=== PATIENT | male | born 1950 | race Hispanic/Latino ===

== ENCOUNTER 2018-06-13 13:50 | Day surgery (SDC) | payer MEDICARE ==
[2018-06-11 09:25] VITALS: BMI 22.9
[2018-06-13 14:27] LABS: BASO # 0.04 K/mm3 (0.0-2.0); BASO % 0.4 % (0.0-3.0); EOS # 0.1 (0.0-0.7); GRAN # 7.75 (1.4-6.5); GRAN % 68.6 % (50.0-68.0); HEMOGLOBIN 15.4 g/dL (14.0-18.0); LYMPH # 2.6 (1.2-3.4); LYMPH % 22.8 % (22.0-35.0); MEAN CELL VOLUME 75.2 fl (80.0-105.0); MEAN CORPUSCULAR HEMOGLOBIN 23.4 pg (25.0-35.0); MEAN CORPUSCULAR HGB CONC 31.2 g/dl (31.0-37.0); MEAN PLATELET VOLUME 10.7 fl (7.0-11.0); MONO # 0.8 (0.1-0.6); MONO % 7.2 % (1.0-6.0); RBC 6.57 10^6/uL (3.5-6.1); RED CELL DISTRIBUTION WIDTH 14.4 % (11.5-14.5); WHITE BLOOD COUNT 11.3 10^3/ul (4.5-11.0)
[2018-06-13 14:37] LABS: BLOOD UREA NITROGEN 29 mg/dL (7-21); GFR NON-AFRICAN AMERICAN > 60; INR 1.09; PARTIAL THROMBOPLASTIN TIME 24.6 Seconds (25.1-36.5); PROTHROMBIN TIME 12.4 SECONDS (9.4-12.5)
[2018-06-13] MEDS ORDERED: Midazolam 2 MG/2 ML VIAL ONE (15:21)
[2018-06-13] MEDS ORDERED: Oxycodone/Acetaminophen 5/325 mg Tab PO PRN (16:16)
[2018-06-13] MEDS ORDERED: Sodium Chloride 0.45% 1,000 ML IV SCH (16:30)
[2018-06-13] MEDS ORDERED: Midazolam 2 MG/2 ML VIAL IVP ONE (16:38)
[2018-06-13] MEDS ORDERED: Oxycodone/Acetaminophen 5/325 mg Tab PO ONE (17:05)
--- NOTE | 2018-06-13 17:29 | CT ---
PROCEDURE: CT guided right lung biopsy. HISTORY: Previous left pneumonectomy for lung C Large right hilar mass. Evaluate for carcinoma. PHYSICIAN(S): Cortez Ames MD. TECHNIQUE: The relative risks and indications of the procedure were explained to the patient and consent obtained. The patient was placed prone on the CT scanner and preliminary images through the mid chest obtained. Conscious sedation and monitoring were provided throughout the procedure by a nurse. There is an 8 cm right hilar mass. The patient is status post left pneumonectomy.. A right posterior approach was selected and the area prepped and draped in the usual sterile fashion. 1% Xylocaine was used to anesthetize the skin and soft tissues. A 19 gauge guiding needle was advanced into the 8 cm right hilar mass. Its position was confirmed with CT. Using coaxial technique, multiple core biopsies were obtained. The postprocedure images show no evidence of large pneumothorax or significant hemorrhage.. IMPRESSION: 1. CT-guided right lung biopsy as described above.
[2018-06-13 17:32] VITALS: TEMP 97.6
[2018-06-13 18:42] VITALS: BP 135/79; PULSE 76; RESP 20; O2SAT 95
--- NOTE | 2018-06-14 12:51 | RAD ---
Date of service: 06/13/2018 HISTORY: rt lung bx COMPARISON: CT scan earlier same day FINDINGS: LUNGS: Complete opacification of the left lung. PLEURA: No evidence of pneumothorax CARDIOVASCULAR: Normal. OSSEOUS STRUCTURES: No significant abnormalities. VISUALIZED UPPER ABDOMEN: Normal. OTHER FINDINGS: None. IMPRESSION: There is no evidence of post biopsy pneumothorax on the right
== END 2018-06-13 19:30 | disposition home or self-care (01) ==
LOC: SDS 13:50
PROVIDERS: ATTEND Radiology Vascular & Interventional Radiology
DX: C34.01 Malignant neoplasm of right main bronchus (principal); Z90.2 Acquired absence of lung [part of]
CPT/HCPCS: 32405; 36415; 71045; 77012; 80048; 85025; 85610; 85730; 88305; J2250; J2405; J3010; J7030

== ENCOUNTER 2018-06-18 06:53 | Inpatient (IN) | payer MEDICARE ==
[2018-06-18] MEDS ORDERED: Albuterol-Ipratrop 3 mg / 0.5 (3 ml) UD IH STA (07:13)
--- NOTE | 2018-06-18 07:19 | ED PDOC ---
Arrival/HPI - General Chief Complaint: Shortness Of Breath Time Seen by Provider: 06/18/18 07:10 Historian: Patient - Critical Care Critical Care Minutes: 30 minutes - History of Present Illness Narrative History of Present Illness (Text): 68 yr old male w/ hx of Lung ca on home o2 3L, L Lobectomy, HTN, HIV p/w SOB. Acute SOB per EMS and family this morning 30 minutes prior to arrival, desat to 59%. Denies any chest pain or abdominal pain or Headache. No recent fever chills or night sweat. No Nausea or vomiting. Pt was recently rx w/ levoquin 3 weeks prior for ?PNA, but was found to have re-occurence of CA, 9cm mass to R lung. Pt had chemo scheduled to be started. Per family pts Viral load has been low and last Cd4 count was very good. PMD: Nichole Pulm: David ([facility] [place] Onc: Crystal ([facility] [place] Past Medical History - Provider Review Nursing Documentation Reviewed: Yes - Cardiac Hx Pacemaker: No - Hematological/Oncological Hx Blood Transfusions: No - Musculoskeletal/Rheumatological Hx Musculoskeletal Disorders: No - Psychiatric Hx Emotional Abuse: No Hx Physical Abuse: No - Anesthesia Hx Anesthesia Reactions: No - Suicidal Assessment Feels Threatened In Home Enviroment: No Family/Social History Family/Social History: Unknown Family HX Hx Alcohol Use: No Allergies/Home Meds Allergies/Adverse Reactions: Allergies No Known Allergies Allergy (Verified 06/18/18 07:29) Home Medications: Home Meds Medication Instructions Recorded Confirmed Albuterol Sulfate [Ventolin Hfa] 1 puff IH QID 06/11/18 06/18/18 Breo Ellipta 100-25 Mcg INH 1 puff INH BID 06/11/18 06/18/18 Efavirenz/Emtricitabine/Teno 1 tab PO DAILY 06/11/18 06/18/18 [Atripla 600 MG-200 MG-300 MG] Ibuprofen/Diphenhydramine Cit 1 each PO HS 06/11/18 06/18/18 [Advil Pm Caplet] Multivitamin/Iron/Folic Acid 1 tab PO DAILY 06/11/18 06/18/18 [Centrum Adults Tablet] amLODIPine [Norvasc] 5 mg PO DAILY 06/11/18 06/18/18 diaZEpam [Valium] 5 mg PO HS 06/11/18 06/18/18 metFORMIN [glucOPHAGE] 500 mg PO DAILY 06/11/18 06/18/18 oxyCODONE/Acetaminophen [Percocet 1 tab PO PRN PRN 06/11/18 06/18/18 5/325 mg Tab] Review of Systems - Review of Systems Systems not reviewed;Unavailable: Acuity of Condition Physical Exam Blood Pressure: Hypertensive Pulse: Tachycardic Respiratory Rate: Tachypneic Appearance: Positive for: Ill-Appearing Pain Distress: None Mental Status: Positive for: Alert and Oriented X 3 - Systems Exam Head: Present: Atraumatic Pupils: Present: PERRL Extroacular Muscles: Present: EOMI Conjunctiva: Present: Normal Mouth: Present: Moist Mucous Membranes Neck: Present: Normal Range of Motion. No: Meningeal Signs, MIDLINE TENDERNESS Respiratory/Chest: Present: Other (On Bipap, No LS on L side, R side w/ out wheezes or rales or crackles or rhonchi) Cardiovascular: Present: Tachycardic Abdomen: Present: Normal Bowel Sounds. No: Tenderness, Distention Upper Extremity: Present: Normal Inspection. No: Cyanosis, Edema Lower Extremity: Present: Normal Inspection. No: Edema Neurological: Present: GCS=15 Skin: Present: Warm, Dry. No: Rashes Psychiatric: Present: Alert, Oriented x 3 Medical Decision Making ED Course and Treatment: 68 yr old male w/ hx of HIV, HTN, Lung CA on 3L home o2 p/w sob. SOB 2/2 tumor burden vs PNA vs PE. Will seek imaging and labs. o2 sats and work of breathing Improved w/ Bipap. Per family pt is full code. Pending labs and imaging. EKG: Ordered, reviewed, and independently interpreted the EKG. Rate : 128 BPM Rhythm : Sinus tachycardia Interpretation : No STEMI. 06/18/18 08:10 Xray Reviewed: R infinitrate vs Inflammation from mass. Will rx w/ abx given hx of HIV and Tachy, w/ elevated WBC. Lactic 2.2. Code Sepsis called. appreciate consult w/ Dr. Varela: PMD: to be admitted to his service: requests Dr. Navarro for Pulm consult. Consult placed. Appreciate consult w/ Dr. Barr: ICU: to be seen. 06/18/18 08:[address] Barr: ICU: I endorsed need for possible CT-PE for tachy and SOB Pt in NAD, notes improvement in breathing, more comfortable. - Lab Interpretations I have reviewed the lab results: Yes - RAD Interpretation Radiology Orders: 06/18/18 07:11 CHEST PORTABLE [RAD] Stat - Medication Orders Current Medication Orders: Albuterol/Ipratropium (Duoneb 3 Mg/0.5 Mg (3 Ml) Ud) 3 ml IH STAT STA Stop: 06/18/18 07:14 Disposition/Present on Arrival - Present on Arrival Any Indicators Present on Arrival: No - Disposition Have Diagnosis and Disposition been Completed?: Yes Diagnosis: Lung mass, PNA (pneumonia) Disposition: HOSPITALIZED Disposition Time: 08:15 Patient Plan: ICU Condition: GUARDED Forms: [employer] (Frisian)
[2018-06-18 07:43] LABS: BASO # 0.03 K/mm3 (0.0-2.0); BASO % 0.2 % (0.0-3.0); EOS # 0.3 (0.0-0.7); EOS % 2.1 % (1.5-5.0); GRAN # 11.31 (1.4-6.5); GRAN % 80.8 % (50.0-68.0); HEMOGLOBIN 16.7 g/dL (14.0-18.0); LYMPH # 1.7 (1.2-3.4); LYMPH % 11.9 % (22.0-35.0); MEAN CELL VOLUME 75.1 fl (80.0-105.0); MEAN CORPUSCULAR HEMOGLOBIN 23.6 pg (25.0-35.0); MEAN CORPUSCULAR HGB CONC 31.5 g/dl (31.0-37.0); MEAN PLATELET VOLUME 11.4 fl (7.0-11.0); MONO # 0.7 (0.1-0.6); RBC 7.07 10^6/uL (3.5-6.1); RED CELL DISTRIBUTION WIDTH 14.5 % (11.5-14.5)
[2018-06-18 07:44] VITALS: BMI 23.3
[2018-06-18 07:44] LABS: VENOUS BLOOD GAS BASE EXCESS -0.7 mmol/L (0.0-2.0); VENOUS BLOOD GAS PO2 32 mm/Hg (30-55); VENOUS BLOOD PH 7.24 (7.32-7.43)
[2018-06-18 07:50] LABS: ARTERIAL BLOOD GAS HCO3 25.3 mmol/L (21-28); ARTERIAL BLOOD GAS O2 SAT 96.1 % (95-98); ARTERIAL BLOOD GAS PCO2 48 mm/Hg (35-45); ARTERIAL BLOOD GAS PH 7.33 (7.35-7.45); ARTERIAL BLOOD GAS TCO2 26.8 mmol.L (22-28)
[2018-06-18 07:55] LABS: ALB/GLOB RATIO 0.9 (1.1-1.8); ALBUMIN 4.1 g/dL (3.0-4.8); ALT/SGPT 26 U/L (7-56); AST/SGOT 34 U/L (17-59); BLOOD UREA NITROGEN 25 mg/dL (7-21); CALCIUM 8.8 mg/dL (8.4-10.5); GFR NON-AFRICAN AMERICAN > 60
[2018-06-18] MEDS ORDERED: Vancomycin 1gm in NS 250ml 1 GM/250 ML BAG IVPB STA ×2 (08:03→10:33)
[2018-06-18] MEDS ORDERED: Piperacillin/Tazobact 3.375 gm 100 ML IVPB STA (08:03)
[2018-06-18 08:05] LABS: TROPONIN I 0.06 ng/mL
[2018-06-18 08:10] LABS: B-TYPE NATRIURETIC PEPTIDE 473 pg/mL (0-450)
[2018-06-18] MEDS: Sodium Chloride 0.9% 1,000 ML IV SCH (08:14)
--- NOTE | 2018-06-18 08:46 | CP.PCM.CON ---
History of Present Illness - History of Present Illness History of Present Illness: Deion Workman DO, PGY-1 ICU Consult Note for Dr. Bolanos Patient is a 68 year old M with PMH of metastatic lung cancer (s/p L lung resection, now with newly diagnosed 9 cm lung mass in R lung), HTN, and HIV who presents to ED with SOB since awakening for the past 2 hours. Patient states he woke up this morning and was short of breath at rest. When he tried to get up to the bathroom he was hardly able to move without gasping for air. He admits to being diaphoretic at the time and states he took a baby aspirin because he though the might be having a heart attack. He was recently being treated with levaquin for presumed PNA but states that Dr. Varela told him that it was a recurrence of cancer on the right and not PNA. Levaquin was stopped. In ED, he was placed on Bipap and patient states his breathing has improved since. He states his oncologist practices out of [facility] [place] but states they chose to come to this hospital because it was closer. Currently patient denies fever/chills, CP, nausea/vomiting/diarrhea, diaphoresis, peripheral swelling, ESCALANTE or vision changes. PMH: metastatic lung cancer, HTN, HIV PSH: L lung resection All: NKA Fam Hx: non-contributory Meds: reviewed with patient's family, consistent with EMR Review of Systems - Constitutional Constitutional: absent: Chills, Fever, Headache, Night Sweats - EENT Eyes: absent: Change in Vision Nose/Mouth/Throat: As Per HPI - Cardiovascular Cardiovascular: absent: Chest Pain, Dyspnea - Respiratory Respiratory: As Per HPI - Gastrointestinal Gastrointestinal: absent: Abdominal Pain, Nausea, Vomiting - Genitourinary Genitourinary: absent: Change in Urinary Stream Past Patient History - Infectious Disease Hx of Infectious Diseases: None - Past Social History Smoking Status: Unknown If Ever Smoked - CARDIAC Hx Pacemaker: No - PULMONARY Hx Lung Cancer: Yes Other/Comment: Left pneumonectomy. Mass noted to the Rt. lung - HEMATOLOGICAL/ONCOLOGICAL Hx Blood Transfusions: No - MUSCULOSKELETAL/RHEUMATOLOGICAL Hx Musculoskeletal Disorders: No - PSYCHIATRIC Hx Emotional Abuse: No Hx Physical Abuse: No - SURGICAL HISTORY Hx Surgeries: Yes (LEFT PNEUMONECTOMY, BILATERAL MENISCUS SURGERY) - ANESTHESIA Hx Anesthesia Reactions: No Meds Allergies/Adverse Reactions: Allergies Allergy/AdvReac Type Severity Reaction Status Date / Time No Known Allergies Allergy Verified 06/18/18 07:29 - Medications Medications: Current Medications Vancomycin HCl (Vancomycin 1gm) 1 gm in 250 mls @ 167 mls/hr IVPB STAT STA; Protocol Stop: 06/18/18 09:32 Sodium Chloride (Sodium Chloride 0.9%) 1,000 mls @ 100 mls/hr IV .Q10H DAQUAN Last Admin: 06/18/18 08:14 Dose: 100 mls/hr Physical Exam - Constitutional Appears: No Acute Distress, Agitated - Head Exam Head Exam: ATRAUMATIC, NORMAL INSPECTION - Eye Exam Eye Exam: EOMI, PERRL - ENT Exam ENT Exam: Mucous Membranes Dry - Neck Exam Neck exam: Positive for: Full Rom, Normal Inspection - Respiratory Exam Respiratory Exam: Accessory Muscle Use, Decreased Breath Sounds (breath sounds absent on L, c/w L left resection), Prolonged Expiratory Phase. absent: Rales, Rhonchi, Wheezes, Stridor - Cardiovascular Exam Cardiovascular Exam: REGULAR RHYTHM, RRR, +S1, +S2. absent: Diastolic murmur, Gallop, Rubs, Systolic Murmur - GI/Abdominal Exam GI & Abdominal Exam: Soft. absent: Guarding, Rebound - Extremities Exam Extremities exam: Positive for: full ROM, normal inspection. Negative for: pedal edema - Neurological Exam Neurological exam: Alert, Oriented x3 - Psychiatric Exam Psychiatric exam: Anxious - Skin Skin Exam: Dry, Intact, Normal Color, Warm Results - Vital Signs Recent Vital Signs: Last Vital Signs Temp 99.0 F 06/18/18 07:19 Pulse 125 H 06/18/18 07:40 Resp 22 06/18/18 07:40 BP 115/77 06/18/18 07:40 Pulse Ox 95 06/18/18 07:40 - Labs Result Diagrams: 06/18/18 07:15 06/18/18 07:15 Labs: Laboratory Results - last 24 hr 06/18/18 06/18/18 06/18/18 07:11 07:15 07:15 WBC 14.0 H D RBC 7.07 H Hgb 16.7 Hct 53.1 H MCV 75.1 L MCH 23.6 L MCHC 31.5 RDW 14.5 Plt Count 196 MPV 11.4 H Gran % 80.8 H Lymph % (Auto) 11.9 L Morgan % (Auto) 5.0 Eos % (Auto) 2.1 Baso % (Auto) 0.2 Gran # 11.31 H Lymph # (Auto) 1.7 Morgan # (Auto) 0.7 H Eos # (Auto) 0.3 Baso # (Auto) 0.03 pCO2 pO2 32 HCO3 ABG pH ABG Total CO2 ABG O2 Saturation ABG Base Excess ABG Potassium VBG pH 7.24 L VBG pCO2 66.0 H* VBG HCO3 28.3 H VBG Total CO2 30.3 H VBG O2 Sat (Calc) 59.6 VBG Base Excess -0.7 L VBG Potassium 4.4 Sodium 141.0 144 Chloride 106.0 106 Glucose 257 H Lactate 2.3 H FiO2 21.0 Potassium 4.1 Carbon Dioxide 28 Anion Gap 14 BUN 25 H Creatinine 1.0 Est GFR ( Amer) > 60 Est GFR (Non-Af Amer) > 60 Random Glucose 253 H Calcium 8.8 Total Bilirubin 0.6 AST 34 ALT 26 Alkaline Phosphatase 126 D Troponin I 0.06 NT-Pro-B Natriuret Pep 473 H Total Protein 8.4 H Albumin 4.1 Globulin 4.4 Albumin/Globulin Ratio 0.9 L TSH 3rd Generation Arterial Blood Potassium Venous Blood Potassium 4.4 Blood Type Antibody Screen BBK History Checked 06/18/18 06/18/18 06/18/18 07:15 07:15 07:45 WBC RBC Hgb Hct MCV MCH MCHC RDW Plt Count MPV Gran % Lymph % (Auto) Morgan % (Auto) Eos % (Auto) Baso % (Auto) Gran # Lymph # (Auto) Morgan # (Auto) Eos # (Auto) Baso # (Auto) pCO2 48 H pO2 72.0 L HCO3 25.3 ABG pH 7.33 L ABG Total CO2 26.8 ABG O2 Saturation 96.1 ABG Base Excess -1.1 ABG Potassium 3.4 L VBG pH VBG pCO2 VBG HCO3 VBG Total CO2 VBG O2 Sat (Calc) VBG Base Excess VBG Potassium Sodium 141.0 Chloride 110.0 H Glucose 205 H Lactate 1.1 FiO2 100.0 Potassium Carbon Dioxide Anion Gap BUN Creatinine Est GFR ( Amer) Est GFR (Non-Af Amer) Random Glucose Calcium Total Bilirubin AST ALT Alkaline Phosphatase Troponin I NT-Pro-B Natriuret Pep Total Protein Albumin Globulin Albumin/Globulin Ratio TSH 3rd Generation 2.30 Arterial Blood Potassium 3.4 L Venous Blood Potassium Blood Type B POSITIVE Antibody Screen Negative BBK History Checked No verified bt Assessment & Plan - Assessment and Plan (Free Text) Assessment: 68 yo M with PMH of metastatic lung CA, HTN, and HIV presents to ED with acute, worsening SOB with hypoxemia improving with Bipap admitted to ICU for additional management/monitoring. Plan: Neuro: -AAOx3, no FND, moving extremities past midline. -Monitor neuro status. -Reorient patient as necessary. Cardio: -Tachycardia likely 2/2 anxiety and/or physiologic response to hypoxemia -Hypertensive on admission, improving -Maintain MAP > 65 -Monitor HR in MICU Pulm: -Acute hypercapnic respiratory failure likely 2/2 underlying tumor burden vs component of COPD exacerbation -Faint expiratory wheezes on right, absent breath sounds LLL c/w hx of lobectomy -Improving on Bipap -Will start on empiric antibiotics, duo-neb Q6h, and solumedrol 40 mg IVP Q8h -Maintain SpO2 > 95% -Will monitor respiratory status in MICU GI: -Protonix for PPX /Nephro: -Maintain euvolemia -BUN/Cr stable -Monitor UOP -Replete electrolytes as needed Heme/Onc: -Patient states he has a newly diagnosed 9 cm mass in the R lung -Patient's primary oncologist in is Dr. Rojas and police cadet is Dr. Hernandez -H/H stable currently, continue to monitor ID: -Leukocytosis of 14 noted -CXR with possible RLL infiltrate vs mass -Treated empirically with vanc and zosyn -Azithromycin for presumed COPD exacerbation -ID consulted recs appreciated GI/DVT PPX: Protonix and SC heparin Full Code Monitor in MICU Case and plan discussed with my attending Dr. Cici Workman, DO IM Resident PGY-1
--- NOTE | 2018-06-18 09:45 | RAD ---
Date of service: 06/18/2018 HISTORY: sob COMPARISON: 06/13/2018 FINDINGS: LUNGS: There is a new patchy alveolar infiltrate in the right lung. There is no change in the opacified left lung PLEURA: No significant pleural effusion identified, no pneumothorax apparent. CARDIOVASCULAR: Normal. OSSEOUS STRUCTURES: No significant abnormalities. VISUALIZED UPPER ABDOMEN: Normal. OTHER FINDINGS: None. IMPRESSION: There is a new patchy alveolar infiltrate in the right lung. There is no change in the opacified left lung
--- NOTE | 2018-06-18 09:59 | CON ---
DATE: 06/18/2018 PULMONARY CONSULTATION REASON FOR PULMONARY CONSULTATION: Shortness of breath. REFERRING PHYSICIAN: Steve Varela MD. HISTORY OF PRESENT ILLNESS: History is obtained via extensive discussion with the patient and his family. I have also reviewed the chart at length. The patient is a chronically ill 68-year-old male, with past medical history significant for advanced lung cancer (status post left pneumonectomy in 2013); newly diagnosed/large cancer recurrence in the right lung; advanced chronic obstructive pulmonary disease, on home oxygen; hypertension; HIV positivity; who presents to [facility] with a 1-day history of increasing shortness of breath at rest, dyspnea on exertion and cough. There is no history of significant sputum production. There is no history of chest pain, coughing up of blood or chest pain - made worse with deep respirations. The patient did present to [facility] with low-grade temperatures (99.0). No history of chills or infectious exposure. No history of night sweats, weight loss or appetite change prior to the above events. No history of calf pains. No history of syncope or diaphoresis. No history of recent travel or trauma. REVIEW OF SYSTEMS: No history of nausea, vomiting or diarrhea. No acute urinary symptoms. No new neurologic complaints. Rest of the review of systems is negative. ALLERGIES: NO KNOWN ALLERGIES. SOCIAL HISTORY: Positive for extensive tobacco usage. No alcohol. Previous intravenous drug abuse - many years ago. FAMILY HISTORY: No inheritable diseases. HOME MEDICATIONS: Include Percocet, Glucophage, Valium, Norvasc, Breo Ellipta, Ventolin HFA and Atripla. PHYSICAL EXAMINATION: GENERAL: The patient is mildly short of breath at rest. He is no acute distress. He is currently on BiPAP. VITAL SIGNS: Temperature is 99, pulse on the monitor is 101, respiratory rate 20/22, blood pressure 115/77. Oxygen saturation on BiPAP is 95%. HEENT: Normocephalic, atraumatic. No JVD. CARDIOVASCULAR: Positive S1, S2. No S3 gallop. LUNGS: Scattered rhonchi with a few wheezes noted in the right lung. Decreased breath sounds - left lung. EXTREMITIES: No clubbing, cyanosis or edema. Calves are nontender to palpation. GI: Abdomen is soft, nontender and nondistended. Bowel sounds are positive. SKIN: No acute rash. NEUROLOGIC: Limited at the present time. PERTINENT LABORATORY DATA: Chest x-ray was done today and reviewed. Compared to the chest x-ray done on 06/13/2018, the chest x-ray today appears to show a new right lower lobe infiltrate. The patient also had a recent PET scan done on 06/06/2018. The patient has a very large (approximately 9 cm) multilobulated FDG-avid mass noted in the right lower lobe with extension to the right hilum. There is also FDG-avid metastatic adenopathy noted in the mediastinum and the hilum. Lung biopsy of the mass was done on 06/13/2018. 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 CBC: White count 14K, hemoglobin 16.7, hematocrit 53.1, platelets of 196,000. Arterial blood gas was done on 100% oxygen. Results are: PH 7.33, pCO2 of 48, pO2 of 72. Complete metabolic profile: BUN 25, glucose 253. Troponin 0.06. B-type natriuretic peptide 473, total protein 8.4. Rest of the metabolic profile is within normal limits. IMPRESSION: 1. Acute hypoxemic respiratory failure. 2. Rule out pneumonia, right lower lobe. 3. Advanced lung cancer. 4. Advanced chronic obstructive pulmonary disease - on home oxygen. 5. Mild bronchospasm. PLAN: Again, I did discuss the case with the patient and family at length. I have also reviewed the chart at length. The patient presents to [facility] with a 1-day history of increasing pulmonary symptoms. Again, I did review the chest x-ray - done earlier today. Compared to the chest x-ray done on 06/13/2018, the newest chest x-ray shows a right lower lobe infiltrate (new). I have also reviewed the recent PET scan done. A very large right lung mass with metastatic disease to the mediastinum and hilum are noted. I have also reviewed the arterial blood gas. A mild respiratory acidosis is noted, along with a significant increase in the alveolar-arterial gradient. Since the arterial blood gas was done, the patient was placed on BiPAP. On physical exam, there is certainly mild bronchospasm noted. The patient also got vancomycin and Zosyn in the emergency room. Pancultures are ordered. Infectious disease consult is also ordered. The patient appears critically ill, with overall poor prognosis. I did have a private conversation with the this morning. She appears realistic, knowing that her has an advanced cancer. I also discussed the case at length with Dr. Bolanos (ICU). The ICU team will write the admitting orders shortly. The patient will be transitioned to the ICU as soon as possible. I will also discuss the above with the attending physician. Thank you very much for this pulmonary consultation. Kwadwo Navarro MD [email or web address]
[2018-06-18] MEDS ORDERED: Meropenem IV 1 gm in NS 50 ML IVPB SCH (10:33)
[2018-06-18 10:41] LABS: VENOUS BLOOD GAS BASE EXCESS 1.1 mmol/L (0.0-2.0); VENOUS BLOOD GAS PO2 67 mm/Hg (30-55); VENOUS BLOOD PH 7.32 (7.32-7.43)
--- NOTE | 2018-06-18 12:31 | PCM.SEPTIC ---
Sepsis Progress Note - Non Invasive Reassessment Vital Sign (Latest): Temp Pulse Resp BP Pulse Ox 99.0 F 101 H 22 120/84 100 06/18/18 07:19 06/18/18 11:19 06/18/18 11:19 06/18/18 11:19 06/18/18 11:19
--- NOTE | 2018-06-18 12:34 | PCM.SEPTIC ---
Sepsis Progress Note - Reassessment Type Date of Evaluation: 06/18/18 Time of Evaluation: 13:00 Reassessment Type: Non-invasive reassessment - Non Invasive Reassessment Were the most recent vital sign reviewed: Yes Vital Sign (Latest): Temp Pulse Resp BP Pulse Ox 99.0 F 101 H 22 120/84 100 06/18/18 07:19 06/18/18 11:19 06/18/18 11:19 06/18/18 11:19 06/18/18 11:19 Cardiovascular: Yes: Regular Rate, Rhythm, Tachycardia Respiratory: Yes: Normal Breath Sounds, Other (w/ face mask) Capillary Refill: Normal (Less than 2 sec) Skin: Normal Color, Warm Fluid Challenge performed: No
--- NOTE | 2018-06-18 13:08 | CARD ---
APPROVED REPORT Date of service: 06/18/2018 EKG Measurement Heart [id number] <Conclusion> Sinus tachycardia Rightward axis Voltage criteria for left ventricular hypertrophy Cannot rule out Septal infarct, age undetermined Marked ST abnormality, Correlate Clinically. Abnormal ECG
[2018-06-18] MEDS: Albuterol-Ipratrop 3 mg / 0.5 (3 ml) UD IH SCH ×2 (13:48→19:44)
[2018-06-18] MEDS: Meropenem IV 1 gm in NS 1 GM/50 ML BAG IVPB SCH ×2 (14:00→21:36)
[2018-06-18 14:56] LABS: ARTERIAL BLOOD GAS HCO3 25.4 mmol/L (21-28); ARTERIAL BLOOD GAS O2 SAT 99.3 % (95-98); ARTERIAL BLOOD GAS PCO2 45 mm/Hg (35-45); ARTERIAL BLOOD GAS PH 7.36 (7.35-7.45); ARTERIAL BLOOD GAS TCO2 26.8 mmol.L (22-28)
[2018-06-18] MEDS: MethylPREDNISolone 40 mg Vial IVP SCH ×2 (15:00→21:37)
--- NOTE | 2018-06-18 20:31 | US ---
HISTORY: Leg pain and swelling. Evaluate for DVT PHYSICIAN(S): Cortez Ames MD. TECHNIQUE: Duplex sonography and color-flow Doppler with graded compression were used to evaluate the deep venous systems of both lower extremities. FINDINGS: The visualized deep venous systems of both lower extremities are sonographically normal and compressible. Normal wave forms and augmentation are seen. There is no sonographic evidence for deep venous thrombosis in the visualized segments of both lower extremities. IMPRESSION: No sonographic evidence for deep venous thrombosis in the visualized segments of both lower extremities.
[2018-06-18] MEDS ORDERED: Influenza Vaccine 60 mcg/0.5 mL SYR (4YR UP) IM ONE (21:51)
[2018-06-18] MEDS ORDERED: Pneumococcal 23-Valent Vaccine IM ONE (21:51)
--- NOTE | 2018-06-18 22:46 | HP ---
HISTORY OF PRESENT ILLNESS: A 68-year-old white male with remote history of left lung CA status post pneumonectomy several years ago. Patient also has a history being HIV positive, hypertension, and uwu-lzffftq-iuupxwkoe diabetes mellitus for many years. Patient recently was found to have a mass in the contralateral lung with mediastinal adenopathy. Patient had a recent biopsy which showed squamous cell carcinoma of the lung, had a PET scan which showed the same. Patient recently was in the emergency room at [facility] approximately a week ago, had a lung biopsy and was at that point sent to [facility] where patient was admitted for several days and met Dr. Rojas and decided to start chemotherapy with Dr. Rojas. Patient was seen, evaluated and eventually discharged from the hospital to start outpatient chemotherapy. Over the last 24 to 48 hours, patient became progressively more short of breath and dyspneic with productive cough. Denied any fever or chills. Came to the emergency room and was found to be desaturating into the 50s, was put on BiPAP in the emergency room and admitted to the Intensive Care Unit. REVIEW OF SYSTEMS: Positive only for cough, shortness of breath and some palpitations. Patient denies chest pain, diaphoresis, nausea or vomiting. Patient denies any diarrhea or vomiting, does complain of some loss of appetite and some weakness of his voice. Review of systems for neurology is negative for headache, blurred vision, double vision, weakness in the arms or legs, incoordination or head pain. Respiratory system is as stated. GI system is as stated above. Patient also denies any bruising or bleeding. Denies any burning or dysuria. SOCIAL HISTORY: Patient has a history of being HIV positive. He has no travel history. He is a former smoker. Nonsmoker, nondrinker at this point. No illicit drugs at this point. ALLERGIES: NO ALLERGIES. PHYSICAL EXAMINATION: GENERAL: A thin white male in moderate to severe respiratory distress with BiPAP, barely audible voice, tentative by his and daughter. CHEST: Shows decreased breath sounds throughout the thorax with some rhonchi in the right thorax. ABDOMEN: Benign. HEART: Regular sinus rhythm, but sinus tachycardia. EXTREMITIES: Without cyanosis, clubbing, or edema. NEUROLOGIC: Grossly intact. Patient is unable to stand or to coordinate because of his severe respiratory distress. IMPRESSION: A 68-year-old white male, human immunodeficiency virus positive with a history of lung cancer status post lobectomy with recurrent lung cancer, possibly new primary versus metastasis with large amount of mediastinal adenopathy on CT-PET presenting with respiratory failure and hypoxia, possible pneumonia. Recent x-ray shows alveolar infiltrates. Patient's recent pathology did show squamous cell carcinoma of the lung, markers are pending. Patient's PET-CT did show a left pneumonectomy and showed a large 9 x 8 x 8 multilobe FDG-avid mass in the anterior selective left lower lobe with the extension to the right hilum, there is also adenopathy, metastatic adenopathy in the mediastinum in the precarinal and pretracheal region, extending into the pretracheal region abutting the extending thoracic aorta. There is also a large subcarinal mass extending posterior to the right azygoesophageal recess, there is also a mass like appearance of short segment of the esophagus. PLAN: To ICU, IV antibiotics, bronchodilators, possible start of chemotherapy with Dr. Rojas and treatment of underlying possible pneumonia. Steve Varela MD
--- NOTE | 2018-06-18 23:13 | CON ---
DATE: 06/18/2018 HISTORY OF PRESENT ILLNESS: This is a 68-year-old gentleman with history of COPD; recurrent nonsmall lung CA, status post left lobectomy; who presented to [facility] with chief complaint of acute shortness of breath that started about 30 minutes prior to arrival with oxygen saturation to 59%. The patient denies any chest pain, abdominal pain or headache. No hemoptysis. No nausea, vomiting, diarrhea, or constipation. PAST MEDICAL HISTORY: Left lobectomy for lung cancer, hypertension, HIV. HOME MEDICATIONS: Ventolin, Breo Ellipta, Atripla, Advil PM, multivitamins, Norvasc, Valium, metformin, Percocet. ALLERGIES: NKDA. REVIEW OF SYSTEMS: Revealed 12-organ systems other than mentioned in the history of present illness is negative. SOCIAL HISTORY: No alcohol or illicit drug abuse. No tobacco smoking at presently. The patient is an ex-smoker, though. PHYSICAL EXAMINATION: VITAL SIGNS: Heart rate 111, blood pressure 132/88, respiratory rate 26, oxygen saturation 99% on BiPAP. ENT: Head and neck atraumatic. LUNGS: No breath sounds on the left side. Few crackles on the right side. HEART: Regular rate and rhythm. S1, S2 normal. ABDOMEN: Soft, nontender and nondistended. MUSCULOSKELETAL: No C/C/E. NEUROLOGIC: The patient moves all extremities spontaneously. SKIN: Moist. PSYCH: The patient is alert, awake and oriented x3. LABORATORY DATA: WBC 15, hemoglobin 16.7, platelet count 196. Sodium 144, potassium 4.1, chloride 106, carbon dioxide 28, BUN 25, creatinine 1, glucose 253, proBNP 473, troponin 0.06, AST 34, ALT 26, total bilirubin 0.6. Chest x-ray showed complete volume loss on the left side, substantially increased interstitial markings on the right side, substantial tracheal deviation to the left, right lower lobe mass. EKG showed sinus tachycardia with some ST depression in V5 and V6. ASSESSMENT AND PLAN: This is a 68-year-old gentleman, who presented with acute shortness of breath in the setting of human immunodeficiency virus and right lower lobe mass, representing malignancy. Differential diagnosis includes infectious and noninfectious etiology. Typical and atypical pathogens are on differential list. Possibility of Pneumocystis carinii pneumonia cannot be ruled out as well. ID will weigh in whether Bactrim should be started. Bronch would be too risky provided fi02 requireiemnt. Infectious Disease Service following on CD4 count, viral load and antibiotics. Possibility of pulmonary embolism cannot be discarded as well. We will proceed with echocardiogram, venous Doppler of lower extremities. Septic workup will be initiated. Urine for Legionella and streptococcal antigen will be sent. Procalcitonin will be ordered. Blood, urine culture will be obtained. The patient currently is on meropenem and vancomycin. The patient is on azithromycin as well. The patient is on heparin subcu for deep venous thrombosis prophylaxis. DuoNeb and steroid taper were ordered. We will continue to target euvolemia, euglycemia, normothermia and oxygen saturation more than 90%. We will continue with bilevel positive airway pressure and we will repeat ABG to ascertain the improvement in ventilatory and gas exchange parameters. ccm time 40 min Andrea Bolanos MD [facility]
[2018-06-19] MEDS: Sodium Chloride 0.9% 1,000 ML IV SCH ×2 (01:00→11:53)
[2018-06-19] MEDS: Albuterol-Ipratrop 3 mg / 0.5 (3 ml) UD IH SCH ×4 (02:54→20:39)
[2018-06-19] MEDS: Meropenem IV 1 gm in NS 1 GM/50 ML BAG IVPB SCH ×3 (05:32→22:11)
[2018-06-19] MEDS: MethylPREDNISolone 40 mg Vial IVP SCH ×3 (05:32→22:10)
[2018-06-19 06:59] LABS: BASO # 0.01 K/mm3 (0.0-2.0); BASO % 0.1 % (0.0-3.0); EOS % 0.1 % (1.5-5.0); GRAN # 7.47 (1.4-6.5); GRAN % 79.5 % (50.0-68.0); LYMPH # 1.3 (1.2-3.4); LYMPH % 13.6 % (22.0-35.0); MEAN CELL VOLUME 74.9 fl (80.0-105.0); MEAN CORPUSCULAR HEMOGLOBIN 23.3 pg (25.0-35.0); MEAN PLATELET VOLUME 10.9 fl (7.0-11.0); MONO # 0.6 (0.1-0.6); MONO % 6.7 % (1.0-6.0); RBC 6.02 10^6/uL (3.5-6.1); RED CELL DISTRIBUTION WIDTH 14.3 % (11.5-14.5); WHITE BLOOD COUNT 9.4 10^3/ul (4.5-11.0)
[2018-06-19 07:21] LABS: ALB/GLOB RATIO 0.9 (1.1-1.8); ALBUMIN 3.2 g/dL (3.0-4.8); ALT/SGPT 27 U/L (7-56); AST/SGOT 27 U/L (17-59); BLOOD UREA NITROGEN 21 mg/dL (7-21); CALCIUM 8.1 mg/dL (8.4-10.5); GFR NON-AFRICAN AMERICAN > 60
[2018-06-19] MEDS ORDERED: Vancomycin 1gm in NS 250ml 1 GM/250 ML BAG IVPB SCH (07:30)
--- NOTE | 2018-06-19 07:53 | PN ---
DATE: 06/19/2018(630am-720am) PULMONARY NOTE SUBJECTIVE: The patient appears comfortable this morning. He is not short of breath at rest. PHYSICAL EXAMINATION: VITAL SIGNS: Temperature is 98, pulse 87, respirations 18-20, blood pressure 130/91. Oxygen saturation on high-flow delivery is 95%. HEENT: Normocephalic, atraumatic. No JVD. CARDIOVASCULAR: Positive S1, S2. No S3 gallop. LUNGS: Less rhonchi, less wheezing noted in the right lung. Decreased breath sounds - left lung. EXTREMITIES: No clubbing, cyanosis, or edema. Calves are nontender to palpation. GASTROINTESTINAL: Abdomen is soft, nontender, and nondistended. Bowel sounds are positive. SKIN: No acute rash. NEUROLOGIC: Limited at the present time. PERTINENT LABORATORY DATA: Chest x-ray was done this morning and reviewed. There is slightly less infiltrate noted at the right lower lobe. IMPRESSION: 1. Acute hypoxemic respiratory failure. 2. Right lower lobe pneumonia. 3. Advanced lung cancer. 4. Advanced chronic obstructive pulmonary disease. 5. Mild bronchospasm. PLAN: The patient appears comfortable this morning. He is not short of breath at rest. He does state to feeling much better overall. I did discuss the case with the night nurse at length. The night nurse stated that the patient had a good night. I did review the chest x-ray as above. The chest x-ray does show some improvement - with a decrease in the right lower lobe infiltrate. On physical exam, there is certainly less bronchospasm noted. In addition, the alveolar-arterial gradient is also less. I will continue with the current nebulizer treatments and intravenous steroids for now. The patient remains on antibiotic therapy - as per Infectious Disease. Input by Dr. Mackey is noted. There has now been resolution of the leukocytosis. Clinical status of the patient is certainly improved - compared to yesterday. However, again, unfortunately, the future status/prognosis for this patient remains poor. All are aware. I will discuss the above with the entire ICU team in the next few moments. I will also discuss the above with the attending physician. Kwadwo Navarro MD [facility] # [id number] TEZ
--- NOTE | 2018-06-19 08:41 | RAD ---
Date of service: 06/19/2018 HISTORY: follow up COMPARISON: 06/18/2018 FINDINGS: LUNGS: There is redemonstration of a large lobular mass in the right lower lobe. Again seen is complete opacification of the left hemithorax with shift of trachea and mediastinum to the left. Are diffuse increased interstitial markings in the right lung. PLEURA: Small right pleural effusion, no pneumothorax apparent. CARDIOVASCULAR: Normal. OSSEOUS STRUCTURES: No significant abnormalities. VISUALIZED UPPER ABDOMEN: Normal. OTHER FINDINGS: None. IMPRESSION: Little interval change in large lobular mass in the right lower lobe. Diffuse interstitial thickening in the right lung could be related to interstitial edema or pneumonitis however lymphangitis carcinomatosis is also a consideration. Near complete opacification of the left hemithorax with shift of trachea and mediastinum to the left related to pneumonectomy.
[2018-06-19] MEDS ORDERED: Insulin Lispro (humaLOG) MEDIUM Coverage SC SCH (11:30)
[2018-06-19] MEDS: Insulin Lispro (humaLOG) LOW Coverage SC SCH ×2 (11:36→22:30)
--- NOTE | 2018-06-19 12:21 | PN ---
DATE: 06/19/2018 SUBJECTIVE: A 68-year-old white male seen in the ICU bed 5. The patient has a history of a right lobectomy and recent recurrence of left lung cancer with mediastinal spread and precarinal and pretracheal spread and possible esophageal mass. The patient was admitted, on IV antibiotics. He was seen in consultation by Dr. Navarro and also by Dr. Rojas, his oncologist. He does have squamous cell cancer of the lung, recurrent, possible metastatic, possible new primary. The patient was evaluated by Dr. Rojas for chemotherapy and has not started at this point. He was admitted with severe shortness of breath, wheezing, rhonchi, and exacerbation of underlying COPD. The patient had a good night; however, developed some wheezing this morning. His vital signs are stable. He is on IV antibiotics, bronchodilators and steroids. He is afebrile. Heart rate jumps anywhere from 80 to 115 depending on his shortness of breath. LABORATORY DATA: His H and H is stable, hemoglobin is 14, his white count is 9.4. Platelets are normal at 193. PLAN: Continue bronchodilator, steroids, Oncology consultation and BiPAP for control of hypoxia. Steve Varela MD
[2018-06-19] MEDS ORDERED: Tmp-Smz 16 mg-80 mg/ml Inj IVPB SCH (14:00)
--- NOTE | 2018-06-19 14:56 | PN ---
DATE: 06/19/2018 SUBJECTIVE: The patient is seen and examined at bedside. He is comfortable. He talks full sentences. He is not in respiratory or otherwise distress. PHYSICAL EXAMINATION: VITAL SIGNS: He requires 60% FIO2 on high-flow with flow of 50 L per minute. His oxygen saturation is 91 and 92. Respiratory rate 20-25, heart rate 113. ENT: Head and neck atraumatic. LUNGS: Decreased breath sounds on the left side and few crackles on the right side. HEART: Regular rate and rhythm. S1, S2 distant. ABDOMEN: Soft, nontender and nondistended. MUSCULOSKELETAL: No C/C/E. NEURO: The patient moves all extremities spontaneously. SKIN: Moist. PSYCH: The patient is alert, awake and oriented. LABORATORY DATA: Sodium 143, potassium 4.9, chloride 110, carbon dioxide 29, BUN 21, creatinine 0.9, glucose 227, AST 27, ALT 27, total bilirubin 0.5. WBC 9.4, hemoglobin 14, platelet count 193. MEDICATIONS: Tylenol p.r.n., DuoNeb every 6 hours, azithromycin, meropenem, Solu-Medrol 40 mg IV every 8, Protonix, Bactrim. ASSESSMENT AND PLAN: This is a 68-year-old gentleman with underline human immunodeficiency virus diagnosis and unknown CD-4 count and viral load, who presented with what appears to be community-acquired pneumonia. He was started on meropenem and Zithromax. Possibility of Pneumocystis carinii pneumonia could not be rule out and Bactrim and steroids were initiated as well. Bronchoscopy would be too risky as the patient requires high FIO2 to maintain gas exchange parameters. Blood, urine culture were sent. Urine for Legionella and Streptococcal antigen ordered. Procalcitonin is pending. Infectious Disease Service is on board. We will continue to target euvolemia, euglycemia, normothermia and oxygen saturation more than 90%. We will continue with deep venous thrombosis, gastrointestinal prophylaxis. Addendum: fi02 down 60% on vapotherm-->02sat 98-99 percent ccm time 40 min Andrea Bolanos MD [facility] # [id number] MTDCarlos
--- NOTE | 2018-06-19 15:18 | CP.PCM.CON ---
History of Present Illness - History of Present Illness History of Present Illness: 68 year old male with PMH of metastatic lung cancer (S/P left lung resection, but now has a newly discovered right lung mass), HTN, questionable HIV, came in [place] [facility] [place] of worsening shortness of breath for the past 2-3 days asso ciated with cough productive of whitish phlegm, with dyspnea on exertion. He has been having cough and SOB for the past 3 weeks and was being given Levaquin but he continued to have his symptoms and his Levaquin was stopped. He denies fever or chills, no nausea or vomiting, no abdominal pain, feels weak and tired, denies headache or dizziness, no chest pain, at times gasps for air, no sore throat, no diarrhea. CXR is showing right lower lobe infiltrate but also shows interstitial infiltrate. Infectious Diseases consult is requested to further evaluate and manage. Review of Systems - Review of Systems All systems: reviewed and no additional remarkable complaints except (as per HPI) Past Patient History - Infectious Disease Hx of Infectious Diseases: None - Past Social History Smoking Status: Unknown If Ever Smoked - CARDIAC Hx Pacemaker: No - PULMONARY Hx Lung Cancer: Yes Other/Comment: Left pneumonectomy. Mass noted to the Rt. lung - HEMATOLOGICAL/ONCOLOGICAL Hx Blood Transfusions: No - MUSCULOSKELETAL/RHEUMATOLOGICAL Hx Musculoskeletal Disorders: No - PSYCHIATRIC Hx Emotional Abuse: No Hx Physical Abuse: No - SURGICAL HISTORY Hx Surgeries: Yes (LEFT PNEUMONECTOMY, BILATERAL MENISCUS SURGERY) - ANESTHESIA Hx Anesthesia Reactions: No Meds Allergies/Adverse Reactions: Allergies Allergy/AdvReac Type Severity Reaction Status Date / Time No Known Allergies Allergy Verified 06/18/18 07:29 - Medications Medications: Current Medications Azithromycin (Zithromax) 500 mg PO DAILY DAQUAN; Protocol Sodium Chloride (Sodium Chloride 0.9%) 1,000 mls @ 100 mls/hr IV .Q10H DAQUAN Last Admin: 06/18/18 08:14 Dose: 100 mls/hr Vancomycin HCl (Vancomycin 1gm) 1 gm in 250 mls @ 167 mls/hr IVPB STAT STA; Pro tocol Stop: 06/18/18 12:02 Meropenem (Merrem Iv 1 Gm Premix) 50 mls @ 100 mls/hr IVPB Q8 DAQUAN; Protocol Physical Exam - Constitutional Appears: Chronically Ill - Head Exam Head Exam: NORMAL INSPECTION - Respiratory Exam Respiratory Exam: Decreased Breath Sounds - Cardiovascular Exam Cardiovascular Exam: +S1, +S2 - GI/Abdominal Exam GI & Abdominal Exam: Soft. absent: Tenderness Results - Vital Signs Recent Vital Signs: Last Vital Signs Temp 99.0 F 06/18/18 07:19 Pulse 106 H 06/18/18 10:32 Resp 22 06/18/18 10:32 BP 120/90 06/18/18 10:32 Pulse Ox 99 06/18/18 10:32 - Labs Result Diagrams: 06/19/18 05:40 06/19/18 05:40 Labs: Laboratory Results - last 24 hr 06/18/18 06/18/18 06/18/18 07:11 07:15 07:15 WBC 14.0 H D RBC 7.07 H Hgb 16.7 Hct 53.1 H MCV 75.1 L MCH 23.6 L MCHC 31.5 RDW 14.5 Plt Count 196 MPV 11.4 H Gran % 80.8 H Lymph % (Auto) 11.9 L Kaufman % (Auto) 5.0 Eos % (Auto) 2.1 Baso % (Auto) 0.2 Gran # 11.31 H Lymph # (Auto) 1.7 Kaufman # (Auto) 0.7 H Eos # (Auto) 0.3 Baso # (Auto) 0.03 pCO2 pO2 32 HCO3 ABG pH ABG Total CO2 ABG O2 Saturation ABG Base Excess ABG Potassium VBG pH 7.24 L VBG pCO2 66.0 H* VBG HCO3 28.3 H VBG Total CO2 30.3 H VBG O2 Sat (Calc) 59.6 VBG Base Excess -0.7 L VBG Potassium 4.4 Sodium 141.0 144 Chloride 106.0 106 Glucose 257 H Lactate 2.3 H FiO2 21.0 Potassium 4.1 Carbon Dioxide 28 Anion Gap 14 BUN 25 H Creatinine 1.0 Est GFR ( Amer) > 60 Est GFR (Non-Af Amer) > 60 Random Glucose 253 H Calcium 8.8 Total Bilirubin 0.6 AST 34 ALT 26 Alkaline Phosphatase 126 D Troponin I 0.06 NT-Pro-B Natriuret Pep 473 H Total Protein 8.4 H Albumin 4.1 Globulin 4.4 Albumin/Globulin Ratio 0.9 L TSH 3rd Generation Arterial Blood Potassium Venous Blood Potassium 4.4 Blood Type Blood Type Confirm Antibody Screen BBK History Checked 06/18/18 06/18/18 06/18/18 07:15 07:15 07:45 WBC RBC Hgb Hct MCV MCH MCHC RDW Plt Count MPV Gran % Lymph % (Auto) Kaufman % (Auto) Eos % (Auto) Baso % (Auto) Gran # Lymph # (Auto) Kaufman # (Auto) Eos # (Auto) Baso # (Auto) pCO2 48 H pO2 72.0 L HCO3 25.3 ABG pH 7.33 L ABG Total CO2 26.8 ABG O2 Saturation 96.1 ABG Base Excess -1.1 ABG Potassium 3.4 L VBG pH VBG pCO2 VBG HCO3 VBG Total CO2 VBG O2 Sat (Calc) VBG Base Excess VBG Potassium Sodium 141.0 Chloride 110.0 H Glucose 205 H Lactate 1.1 FiO2 100.0 Potassium Carbon Dioxide Anion Gap BUN Creatinine Est GFR ( Amer) Est GFR (Non-Af Amer) Random Glucose Calcium Total Bilirubin AST ALT Alkaline Phosphatase Troponin I NT-Pro-B Natriuret Pep Total Protein Albumin Globulin Albumin/Globulin Ratio TSH 3rd Generation 2.30 Arterial Blood Potassium 3.4 L Venous Blood Potassium Blood Type B POSITIVE Blood Type Confirm Antibody Screen Negative BBK History Checked No verified bt 06/18/18 07:45 WBC RBC Hgb Hct MCV MCH MCHC RDW Plt Count MPV Gran % Lymph % (Auto) Kaufman % (Auto) Eos % (Auto) Baso % (Auto) Gran # Lymph # (Auto) Kaufman # (Auto) Eos # (Auto) Baso # (Auto) pCO2 pO2 HCO3 ABG pH ABG Total CO2 ABG O2 Saturation ABG Base Excess ABG Potassium VBG pH VBG pCO2 VBG HCO3 VBG Total CO2 VBG O2 Sat (Calc) VBG Base Excess VBG Potassium Sodium Chloride Glucose Lactate FiO2 Potassium Carbon Dioxide Anion Gap BUN Creatinine Est GFR ( Amer) Est GFR (Non-Af Amer) Random Glucose Calcium Total Bilirubin AST ALT Alkaline Phosphatase Troponin I NT-Pro-B Natriuret Pep Total Protein Albumin Globulin Albumin/Globulin Ratio TSH 3rd Generation Arterial Blood Potassium Venous Blood Potassium Blood Type Blood Type Confirm B POSITIVE Antibody Screen BBK History Checked Assessment & Plan - Assessment and Plan (Free Text) Plan: Assessment Severe sepsis with acute hypoxic respiratory failure due to right lower lobe H CAP, R/O PJP in this patient with possible chronic HIV infection metastatic lung cancer (S/P left lung resection, but now has a newly discovered right lung mass) HTN Plan We have started Vancomycin, Merrem and Zithromax (day 2) but will switch Vancomycin to BActrim pending LDH and Fungitell - would be ideal to have patient undergo CT chest follow up CD4 count and HIV VL will monitor clinically
[2018-06-19] MEDS: SULFAMETHOXAZOLE IVPB SCH ×2 (15:38→22:16)
[2018-06-19] MEDS: DEXTROSE 5% IVPB SCH ×2 (15:38→22:16)
[2018-06-19] MEDS: WATER IVPB SCH ×2 (15:38→22:16)
[2018-06-19] MEDS: TRIMETHOPRIM IVPB SCH ×2 (15:38→22:16)
--- NOTE | 2018-06-19 20:40 | CP.CCUPN ---
<Hadley Barnett - Last Filed: 06/19/18 20:37> CCU Subjective - Physician Review Subjective (Free Text): Hadley Barnett, PGY-1, CCU Progress for Dr. Bolanos Patient seen and examined at bedside. Patient had no overnight events. Patient reports improvement in shortness of breath. Patient denies headache, dizziness, chest pain, nausea, vomiting, constipation, diarrhea, dysuria, hematuria. CCU Objective - Vital Signs / Intake & Output Vital Signs (Last 4 hours): Vital Signs Pulse Resp BP Pulse Ox 06/19/18 19:50 99 H 35 H 95 06/19/18 19:42 97 H 32 H 149/100 H 95 06/19/18 19:40 92 H 32 H 95 06/19/18 19:30 96 H 34 H 92 L 06/19/18 19:20 95 H 23 96 06/19/18 19:10 120 H 54 H 86 L 06/19/18 19:00 99 H 32 H 96 06/19/18 18:50 91 H 35 H 94 L 06/19/18 18:41 96 H 143/85 94 L 06/19/18 18:40 106 H 37 H 93 L 06/19/18 18:30 95 H 21 95 06/19/18 18:20 99 H 30 H 94 L 06/19/18 18:10 93 H 21 96 06/19/18 18:00 99 H 25 H 96 06/19/18 17:50 103 H 26 H 96 06/19/18 17:41 105 H 35 H 154/93 H 96 06/19/18 17:40 107 H 33 H 97 06/19/18 17:30 93 H 95 06/19/18 17:20 106 H 91 L 06/19/18 17:10 109 H 35 H 96 06/19/18 17:00 99 H 35 H 95 06/19/18 16:50 100 H 32 H 96 06/19/18 16:41 101 H 163/93 H 95 06/19/18 16:40 101 H 17 95 Intake and Output (Last 8hrs): Intake & Output 06/19/18 06/19/18 06/19/18 06:59 14:59 22:59 Intake Total 1300 Output Total 700 Balance 600 Intake: IV 1200 Right Forearm 1200 Oral 100 Output: Urine 700 Urine, Voided 700 Other: # Voids Urine, Voided 4 - Physical Exam Head: Positive for: Atraumatic Pupils: Positive for: PERRL Extroacular Muscles: Positive for: EOMI Conjunctiva: Positive for: Normal Mouth: Positive for: Moist Mucous Membranes Neck: Positive for: Normal Range of Motion. Negative for: Meningeal Signs, MIDLINE TENDERNESS Respiratory/Chest: Positive for: Other (On high flow oxygen at 60%, No LS on L side, R side w/ out wheezes or rales or crackles or rhonchi) Cardiovascular: Positive for: Tachycardic Abdomen: Positive for: Normal Bowel Sounds. Negative for: Tenderness, Distention Upper Extremity: Positive for: Normal Inspection. Negative for: Cyanosis, Edema Lower Extremity: Positive for: Normal Inspection. Negative for: Edema Neurological: Positive for: GCS=15 Skin: Positive for: Warm, Dry. Negative for: Rashes Psychiatric: Positive for: Alert, Oriented x 3 - Medications Active Medications: Active Medications Generic Name Dose Route Start Last Admin Trade Name Freq PRN Reason Stop Dose Admin Acetaminophen 650 mg 06/18/18 17:35 06/18/18 17:42 Tylenol 325mg Tab PO 650 mg Q6H PRN Administration Fever >100.4 F Albuterol/Ipratropium 3 ml 06/18/18 14:00 06/19/18 13:15 Duoneb 3 Mg/0.5 Mg (3 Ml) Ud IH 3 ml [id number] DAQUAN Administration Azithromycin 500 mg 06/18/18 10:45 06/19/18 11:50 Zithromax PO 500 mg DAILY DAQUAN Administration Protocol Heparin Sodium (Porcine) 5,000 units 06/18/18 22:00 06/19/18 13:27 Heparin SC 5,000 units Q8 DAQUAN Administration Protocol Sodium Chloride 1,000 mls @ 100 mls/hr 06/18/18 08:15 06/19/18 11:53 Sodium Chloride 0.9% IV 100 mls/hr .Q10H DAQUAN Administration Meropenem 1 gm in 50 mls @ 100 mls/hr 06/18/18 14:00 06/19/18 13:27 Merrem Iv 1 Gm Premix IVPB 100 mls/hr Q8 DAQUAN Administration Protocol Trimethoprim/Sulfamethoxazole 500 mls @ 250 mls/hr 06/19/18 14:00 06/19/18 15:38 370 mg/ Dextrose IVPB 250 mls/hr Q8 DAQUAN Administration Insulin Human Lispro 0 units 06/19/18 11:30 06/19/18 11:36 Humalog Low SC Not Given ACHS [facility] Protocol Methylprednisolone 40 mg 06/18/18 13:45 06/19/18 13:28 Solu-Medrol IVP 40 mg Q8H DAQUAN Administration Pantoprazole Sodium 40 mg 06/20/18 07:30 Protonix Ec Tab PO ACB DAQUAN - Patient Studies Lab Studies: Microbiology Studies 06/18/18 12:40 MRSA Culture (Admit) - Final Naris MRSA NOT DETECTED 06/18/18 07:35 Blood Culture - Preliminary Blood-Venous NO GROWTH AFTER 24 HOURS 06/18/18 07:11 Blood Culture - Preliminary Blood-Venous NO GROWTH AFTER 24 HOURS Lab Studies 06/19/18 06/19/18 06/19/18 Range/Units 14:30 09:37 06:30 WBC (4.5-11.0) 10^3/ul RBC (3.5-6.1) 10^6/uL Hgb (14.0-18.0) g/dL Hct (42.0-52.0) % MCV (80.0-105.0) fl MCH (25.0-35.0) pg MCHC (31.0-37.0) g/dl RDW (11.5-14.5) % Plt Count (120.0-450.0) 10^3/uL MPV (7.0-11.0) fl Gran % (50.0-68.0) % Lymph % (Auto) (22.0-35.0) % [place] % (Auto) (1.0-6.0) % Eos % (Auto) (1.5-5.0) % Baso % (Auto) (0.0-3.0) % Gran # (1.4-6.5) Lymph # (Auto) (1.2-3.4) [place] # (Auto) (0.1-0.6) Eos # (Auto) (0.0-0.7) Baso # (Auto) (0.0-2.0) K/mm3 Sodium (132-148) mmol/L Potassium (3.6-5.0) mmol/L Chloride (98-107) mmol/L Carbon Dioxide (21-33) mmol/L Anion Gap (10-20) BUN (7-21) mg/dL Creatinine (0.8-1.5) mg/dl Est GFR ( Amer) Est GFR (Non-Af Amer) POC Glucose (mg/dL) 227 H (65-110) mg/dL Random Glucose (70-110) mg/dL Calcium (8.4-10.5) mg/dL Phosphorus (2.5-4.5) mg/dL Magnesium (1.7-2.2) mg/dL Total Bilirubin (0.2-1.3) mg/dL AST (17-59) U/L ALT (7-56) U/L Alkaline Phosphatase (38-126) U/L Lactate Dehydrogenase 674 (333-699) U/L Total Protein (5.8-8.3) g/dL Albumin (3.0-4.8) g/dL Globulin gm/dL Albumin/Globulin Ratio (1.1-1.8) Procalcitonin (0.19-0.49) NG/ML Ur L.pneumophila Ag Negative (NEGATIVE) 06/19/18 06/19/18 06/18/18 Range/Units 05:40 05:40 08:30 WBC 9.4 D (4.5-11.0) 10^3/ul RBC 6.02 (3.5-6.1) 10^6/uL Hgb 14.0 D (14.0-18.0) g/dL Hct 45.1 (42.0-52.0) % MCV 74.9 L (80.0-105.0) fl MCH 23.3 L (25.0-35.0) pg MCHC 31.0 (31.0-37.0) g/dl RDW 14.3 (11.5-14.5) % Plt Count 193 (120.0-450.0) 10^3/uL MPV 10.9 (7.0-11.0) fl Gran % 79.5 H (50.0-68.0) % Lymph % (Auto) 13.6 L (22.0-35.0) % [place] % (Auto) 6.7 H (1.0-6.0) % Eos % (Auto) 0.1 L (1.5-5.0) % Baso % (Auto) 0.1 (0.0-3.0) % Gran # 7.47 H (1.4-6.5) Lymph # (Auto) 1.3 (1.2-3.4) [place] # (Auto) 0.6 (0.1-0.6) Eos # (Auto) 0.0 (0.0-0.7) Baso # (Auto) 0.01 (0.0-2.0) K/mm3 Sodium 143 (132-148) mmol/L Potassium 4.9 (3.6-5.0) mmol/L Chloride 110 H (98-107) mmol/L Carbon Dioxide 29 (21-33) mmol/L Anion Gap 9 L (10-20) BUN 21 (7-21) mg/dL Creatinine 0.9 (0.8-1.5) mg/dl Est GFR ( Amer) > 60 Est GFR (Non-Af Amer) > 60 POC Glucose (mg/dL) (65-110) mg/dL Random Glucose 148 H (70-110) mg/dL Calcium 8.1 L (8.4-10.5) mg/dL Phosphorus 2.5 (2.5-4.5) mg/dL Magnesium 1.6 L (1.7-2.2) mg/dL Total Bilirubin 0.5 (0.2-1.3) mg/dL AST 27 (17-59) U/L ALT 27 (7-56) U/L Alkaline Phosphatase 74 (38-126) U/L Lactate Dehydrogenase (333-699) U/L Total Protein 6.7 (5.8-8.3) g/dL Albumin 3.2 (3.0-4.8) g/dL Globulin 3.6 gm/dL Albumin/Globulin Ratio 0.9 L (1.1-1.8) Procalcitonin < 0.05 L (0.19-0.49) NG/ML Ur L.pneumophila Ag (NEGATIVE) Laboratory Results - last 24 hr 06/18/18 06/19/18 06/19/18 08:30 05:40 05:40 WBC 9.4 D RBC 6.02 Hgb 14.0 D Hct 45.1 MCV 74.9 L MCH 23.3 L MCHC 31.0 RDW 14.3 Plt Count 193 MPV 10.9 Gran % 79.5 H Lymph % (Auto) 13.6 L Ruther[place] % (Auto) 6.7 H Eos % (Auto) 0.1 L Baso % (Auto) 0.1 Gran # 7.47 H Lymph # (Auto) 1.3 [place] # (Auto) 0.6 Eos # (Auto) 0.0 Baso # (Auto) 0.01 Sodium 143 Potassium 4.9 Chloride 110 H Carbon Dioxide 29 Anion Gap 9 L BUN 21 Creatinine 0.9 Est GFR ( Amer) > 60 Est GFR (Non-Af Amer) > 60 POC Glucose (mg/dL) Random Glucose 148 H Calcium 8.1 L Phosphorus 2.5 Magnesium 1.6 L Total Bilirubin 0.5 AST 27 ALT 27 Alkaline Phosphatase 74 Lactate Dehydrogenase Total Protein 6.7 Albumin 3.2 Globulin 3.6 Albumin/Globulin Ratio 0.9 L Procalcitonin < 0.05 L Ur L.pneumophila Ag 06/19/18 06/19/18 06/19/18 06:30 09:37 14:30 WBC RBC Hgb Hct MCV MCH MCHC RDW Plt Count MPV Gran % Lymph % (Auto) Rutherford % (Auto) Eos % (Auto) Baso % (Auto) Gran # Lymph # (Auto) [place] # (Auto) Eos # (Auto) Baso # (Auto) Sodium Potassium Chloride Carbon Dioxide Anion Gap BUN Creatinine Est GFR ( Amer) Est GFR (Non-Af Amer) POC Glucose (mg/dL) 227 H Random Glucose Calcium Phosphorus Magnesium Total Bilirubin AST ALT Alkaline Phosphatase Lactate Dehydrogenase 674 Total Protein Albumin Globulin Albumin/Globulin Ratio Procalcitonin Ur L.pneumophila Ag Negative Review of Systems - Constitutional Constitutional: absent: Fever, Chills, Sweats - EENT Eyes: absent: Blurred Vision Ears: absent: Decreased Hearing - Cardiovascular Cardiovascular: absent: Chest Pain - Respiratory Respiratory: Dyspnea - Gastrointestinal Gastrointestinal: absent: Constipation, Diarrhea, Nausea, Vomiting - Genitourinary Genitourinary: absent: Change in Urinary Stream, Dysuria, Hematuria - Musculoskeletal Musculoskeletal: absent: Arthralgias - Neurological Neurological: absent: Confusion, Loss of Vision, Tingling, Tremor Critical Care Progress Note - Ventilator Checklist Head of Bed 30 Degrees: Yes PUD Prophalyxis: Yes DVT Prophylaxis: Yes - Nutrition Nutrition: Nutrition Category Date Time Status Heart Healthy Diet [DIET] Diets 06/18/18 Dinner Active Assessment/Plan - Assessment and Plan (Free Text) Assessment: 68 year old male with past medical history of metastatic lung cancer (s/p L lung resection, now with newly diagnosed 9 cm in right lung), HTN, HIV presents to ED with SOB for 2 hours. Patient was told by PCP, Dr. Varela, that it was a recurrence of cancer on the right but cannot recall PNA. Plan: Neuro: -AAOx3, no FND, moving extremities past midline. -Monitor neuro status. -Reorient patient as necessary. Cardio: -RRR, hypertensive at 149/100, no signs of HD compromise -Maintain MAP>65. -Monitor for S/S, HD compromise. Pulm: -Patient was in respiratory distress on high flow oxygen at 60% -Patient is stating well at 95% -Maintain O2 saturation>95%. -CXR: Little interval change in large lobular mass in the right lower lobe. Diffuse interstitial thickening in the right lung could be related to interstitial edema or pneumonitis however lymphangitis carcinomatosis is also a consideration. Near complete opacification of the left hemithorax with shift of trachea and mediastinum to the left related to pneumonectomy -Solumedrol 40 mg Q8 -Elevate bed to 30 degrees GI: -Tolerating diet well. -Protonix 40 mg daily /Nephro: -BUN/Cr stable at 21/0.9 -Good urine output: 1250 -Continue monitoring. -Mildly hypocalcemia at 8.1 -Replete electrolytes as needed. -Maintain euvolemia. Endocrinology: -Random glucose: 148 -Maintain euglycemia. Heme/Onc: -H/H stable at 14/45.1 -Leukocytosis present at 9.4 -No signs of HD compromise. -Continue monitoring H/H ID: -Afebrile, leukocytosis present at 9.4 -Patient has HIV with unknown CD4 count and viral load, who presented with what appears to be CAP. -Patient started on meropenem, zithromax, bactrim, steroids -No growth on blood culture and MRSA -Monitor for signs and symptoms of infection. DVT prophylaxis: heparin subq 5000 U Q8 GI prophylaxis: protonix 40 mg daily Patient seen and examined with Dr. Bolanos. - Date & Time Date: 06/19/18 Time: 20:42 <Andrea Bolanos - Last Filed: 06/20/18 07:21> CCU Objective - Vital Signs / Intake & Output Vital Signs (Last 4 hours): Vital Signs Temp Pulse Resp BP Pulse Ox 06/20/18 05:59 98.0 F 98 H 21 149/98 H 98 06/20/18 05:53 88 Intake and Output (Last 8hrs): Intake & Output 06/19/18 06/20/18 06/20/18 22:59 06:59 14:59 Intake Total 0 Output Total 350 Balance -350 Intake: Oral 0 Output: Urine 350 Urine, Voided 350 Stool 0 - Medications Active Medications: Active Medications Generic Name Dose Route Start Last Admin Trade Name Freq PRN Reason Stop Dose Admin Acetaminophen 650 mg 06/18/18 17:35 06/18/18 17:42 Tylenol 325mg Tab PO 650 mg Q6H PRN Administration Fever >100.4 F Albuterol/Ipratropium 3 ml 06/18/18 14:00 06/20/18 02:40 Duoneb 3 Mg/0.5 Mg (3 Ml) Ud IH Not Given [id number] DAQUAN Azithromycin 500 mg 06/18/18 10:45 06/19/18 11:50 Zithromax PO 500 mg DAILY DAQUAN Administration Protocol Diazepam 5 mg 06/19/18 22:00 06/19/18 22:16 Valium PO 5 mg HS DAQUAN Administration Protocol Efavirenz/Emtricitabine/Tenofovir 1 tab 06/19/18 22:00 06/19/18 22:21 Atripla 600 Mg-200 Mg-300 Mg PO 1 tab HS DAQUAN Administration Protocol Heparin Sodium (Porcine) 5,000 units 06/18/18 22:00 06/20/18 05:26 Heparin SC 5,000 units Q8 DAQUAN Administration Protocol Sodium Chloride 1,000 mls @ 100 mls/hr 06/18/18 08:15 06/20/18 06:32 Sodium Chloride 0.9% IV 100 mls/hr .Q10H DAQUAN Administration Meropenem 1 gm in 50 mls @ 100 mls/hr 06/18/18 14:00 06/20/18 05:26 Merrem Iv 1 Gm Premix IVPB 100 mls/hr Q8 DAQUAN Administration Protocol Trimethoprim/Sulfamethoxazole 500 mls @ 250 mls/hr 06/19/18 14:00 06/20/18 06:31 370 mg/ Dextrose IVPB 250 mls/hr Q8 DAQUAN Administration Insulin Human Lispro 0 units 06/19/18 11:30 06/19/18 22:30 Humalog Low SC Not Given ACHS DAQUAN Protocol Methylprednisolone 40 mg 06/18/18 13:45 06/20/18 05:27 Solu-Medrol IVP 40 mg Q8H DAQUAN Administration Pantoprazole Sodium 40 mg 06/20/18 07:30 Protonix Ec Tab PO ACB DAQUAN - Patient Studies Lab Studies: Microbiology Studies 06/18/18 12:40 MRSA Culture (Admit) - Final Naris MRSA NOT DETECTED 06/18/18 07:35 Blood Culture - Preliminary Blood-Venous NO GROWTH AFTER 24 HOURS 06/18/18 07:11 Blood Culture - Preliminary Blood-Venous NO GROWTH AFTER 24 HOURS Lab Studies 06/19/18 06/19/18 06/19/18 Range/Units 21:46 14:30 09:37 Sodium (132-148) mmol/L Potassium (3.6-5.0) mmol/L Chloride (98-107) mmol/L Carbon Dioxide (21-33) mmol/L Anion Gap (10-20) BUN (7-21) mg/dL Creatinine (0.8-1.5) mg/dl Est GFR ( Amer) Est GFR (Non-Af Amer) POC Glucose (mg/dL) 105 227 H (65-110) mg/dL Random Glucose (70-110) mg/dL Calcium (8.4-10.5) mg/dL Phosphorus (2.5-4.5) mg/dL Magnesium (1.7-2.2) mg/dL Total Bilirubin (0.2-1.3) mg/dL AST (17-59) U/L ALT (7-56) U/L Alkaline Phosphatase (38-126) U/L Lactate Dehydrogenase (333-699) U/L Total Protein (5.8-8.3) g/dL Albumin (3.0-4.8) g/dL Globulin gm/dL Albumin/Globulin Ratio (1.1-1.8) Procalcitonin (0.19-0.49) NG/ML Ur L.pneumophila Ag Negative (NEGATIVE) 06/19/18 06/19/18 06/18/18 Range/Units 06:30 05:40 08:30 Sodium 143 (132-148) mmol/L Potassium 4.9 (3.6-5.0) mmol/L Chloride 110 H (98-107) mmol/L Carbon Dioxide 29 (21-33) mmol/L Anion Gap 9 L (10-20) BUN 21 (7-21) mg/dL Creatinine 0.9 (0.8-1.5) mg/dl Est GFR ( Amer) > 60 Est GFR (Non-Af Amer) > 60 POC Glucose (mg/dL) (65-110) mg/dL Random Glucose 148 H (70-110) mg/dL Calcium 8.1 L (8.4-10.5) mg/dL Phosphorus 2.5 (2.5-4.5) mg/dL Magnesium 1.6 L (1.7-2.2) mg/dL Total Bilirubin 0.5 (0.2-1.3) mg/dL AST 27 (17-59) U/L ALT 27 (7-56) U/L Alkaline Phosphatase 74 (38-126) U/L Lactate Dehydrogenase 674 (333-699) U/L Total Protein 6.7 (5.8-8.3) g/dL Albumin 3.2 (3.0-4.8) g/dL Globulin 3.6 gm/dL Albumin/Globulin Ratio 0.9 L (1.1-1.8) Procalcitonin < 0.05 L (0.19-0.49) NG/ML Ur L.pneumophila Ag (NEGATIVE) Laboratory Results - last 24 hr 06/18/18 06/19/18 06/19/18 08:30 05:40 06:30 Sodium 143 Potassium 4.9 Chloride 110 H Carbon Dioxide 29 Anion Gap 9 L BUN 21 Creatinine 0.9 Est GFR ( Amer) > 60 Est GFR (Non-Af Amer) > 60 POC Glucose (mg/dL) Random Glucose 148 H Calcium 8.1 L Phosphorus 2.5 Magnesium 1.6 L Total Bilirubin 0.5 AST 27 ALT 27 Alkaline Phosphatase 74 Lactate Dehydrogenase 674 Total Protein 6.7 Albumin 3.2 Globulin 3.6 Albumin/Globulin Ratio 0.9 L Procalcitonin < 0.05 L Ur L.pneumophila Ag 06/19/18 06/19/18 06/19/18 09:37 14:30 21:46 Sodium Potassium Chloride Carbon Dioxide Anion Gap BUN Creatinine Est GFR ( Amer) Est GFR (Non-Af Amer) POC Glucose (mg/dL) 227 H 105 Random Glucose Calcium Phosphorus Magnesium Total Bilirubin AST ALT Alkaline Phosphatase Lactate Dehydrogenase Total Protein Albumin Globulin Albumin/Globulin Ratio Procalcitonin Ur L.pneumophila Ag Negative Critical Care Progress Note - Nutrition Nutrition: Nutrition Category Date Time Status Heart Healthy Diet [DIET] Diets 06/18/18 Dinner Active Attending/Attestation - Attestation I have personally seen and examined this patient.: Yes I have fully participated in the care of the patient.: Yes I have reviewed all pertinent clinical information: Yes Notes (Text): 06/20/18 07:[address] Bolanos note
[2018-06-19] MEDS: Efavirenz/Emtricitabine/Teno 1 TAB PO SCH (22:21)
[2018-06-20] MEDS: Albuterol-Ipratrop 3 mg / 0.5 (3 ml) UD IH SCH ×4 (02:40→20:40)
[2018-06-20] MEDS: Meropenem IV 1 gm in NS 1 GM/50 ML BAG IVPB SCH ×3 (05:26→22:09)
[2018-06-20] MEDS: MethylPREDNISolone 40 mg Vial IVP SCH ×3 (05:27→22:10)
[2018-06-20] MEDS: SULFAMETHOXAZOLE IVPB SCH ×3 (06:31→22:09)
[2018-06-20] MEDS: DEXTROSE 5% IVPB SCH ×3 (06:31→22:09)
[2018-06-20] MEDS: TRIMETHOPRIM IVPB SCH ×3 (06:31→22:09)
[2018-06-20] MEDS: WATER IVPB SCH ×3 (06:31→22:09)
[2018-06-20] MEDS: Sodium Chloride 0.9% 1,000 ML IV SCH ×2 (06:32→22:11)
[2018-06-20 07:18] LABS: GRAN # 8.27 (1.4-6.5); GRAN % 85.1 % (50.0-68.0); HEMOGLOBIN 14.6 g/dL (14.0-18.0); LYMPH # 1.2 (1.2-3.4); LYMPH % 11.8 % (22.0-35.0); MEAN CELL VOLUME 73.4 fl (80.0-105.0); MEAN CORPUSCULAR HEMOGLOBIN 23.2 pg (25.0-35.0); MEAN CORPUSCULAR HGB CONC 31.7 g/dl (31.0-37.0); MEAN PLATELET VOLUME 10.8 fl (7.0-11.0); MONO # 0.3 (0.1-0.6); MONO % 3.1 % (1.0-6.0); RBC 6.28 10^6/uL (3.5-6.1); RED CELL DISTRIBUTION WIDTH 14.3 % (11.5-14.5); WHITE BLOOD COUNT 9.7 10^3/ul (4.5-11.0)
[2018-06-20 07:28] LABS: ALB/GLOB RATIO 0.9 (1.1-1.8); ALBUMIN 3.3 g/dL (3.0-4.8); ALT/SGPT 38 U/L (7-56); AST/SGOT 43 U/L (17-59); BLOOD UREA NITROGEN 20 mg/dL (7-21); CALCIUM 7.9 mg/dL (8.4-10.5); GFR NON-AFRICAN AMERICAN > 60
[2018-06-20] MEDS ORDERED: Albuterol-Ipratrop 3 mg / 0.5 (3 ml) UD IH PRN (08:06)
[2018-06-20 08:27] LABS: ARTERIAL BLOOD GAS HCO3 21.8 mmol/L (21-28); ARTERIAL BLOOD GAS O2 SAT 93.6 % (95-98); ARTERIAL BLOOD GAS PCO2 36 mm/Hg (35-45); ARTERIAL BLOOD GAS PH 7.39 (7.35-7.45); ARTERIAL BLOOD GAS TCO2 22.9 mmol.L (22-28)
--- NOTE | 2018-06-20 08:36 | PN ---
DATE: 06/20/2018 PULMONARY NOTE SUBJECTIVE: The patient appears comfortable this morning. He is not short of breath at rest. PHYSICAL EXAMINATION: VITAL SIGNS: Temperature is 98, pulse 98, respirations 20, blood pressure 149/98. Oxygen saturation on high-flow delivery is 98%. HEENT: Normocephalic, atraumatic. No JVD. CARDIOVASCULAR: Positive S1, S2. No S3 gallop. LUNGS: Still with minimal rhonchi and wheezing noted in the right lung. Decreased breath sounds - left lung. EXTREMITIES: No clubbing, cyanosis, or edema. Calves are nontender to palpation. GASTROINTESTINAL: Abdomen is soft, nontender, and nondistended. Bowel sounds are positive. SKIN: No acute rash. NEUROLOGIC: Limited at the present time. PERTINENT LABORATORY DATA: Chest x-ray was done this morning and reviewed. The chest x-ray is not significantly changed from the previous film. IMPRESSION: 1. Acute hypoxemic respiratory failure. 2. Right lower lobe pneumonia. 3. Advanced lung cancer. 4. Advanced chronic obstructive pulmonary disease. 5. Mild bronchospasm. PLAN: The patient appears comfortable this morning. He is not short of breath at rest. He does state to feeling much better overall. I did discuss the case with the night nurse at length. The night nurse stated that the patient had a pretty good night. I did review the chest x-ray from this morning. The chest x-ray shows no significant change from the previous film. On physical exam, there is less bronchospasm noted. In addition, the alveolar-arterial gradient is also less. I will continue with the current nebulizer treatments and intravenous steroids for now. The patient remains on antibiotic therapy - as per Infectious Disease. Input by Dr. Mackey is noted. The temperatures have now fully resolved. The leukocytosis has also fully resolved. Clinical status of the patient is certainly improved - compared to the initial presentation. However, again, the future status/prognosis for this patient does remain poor. I will discuss the above with the attending physician this morning. Kwadwo Navarro MD TEZ
--- NOTE | 2018-06-20 09:44 | RAD ---
Date of service: 06/20/2018 HISTORY: follow up COMPARISON: 06/19/2018 FINDINGS: LUNGS: No change in appearance of chronic left-sided opacification. Patchy infiltrate in the right lung and right lower lobe lung mass PLEURA: No significant pleural effusion identified, no pneumothorax apparent. CARDIOVASCULAR: Normal. OSSEOUS STRUCTURES: No significant abnormalities. VISUALIZED UPPER ABDOMEN: Normal. OTHER FINDINGS: None. IMPRESSION: No change in appearance of chronic left-sided opacification. Patchy infiltrate in the right lung and right lower lobe lung mass
[2018-06-20] MEDS: Insulin Lispro (humaLOG) LOW Coverage SC SCH ×4 (09:54→22:30)
[2018-06-20] MEDS: Pantoprazole 40 mg EC Tab PO SCH (09:59)
--- NOTE | 2018-06-20 10:27 | CP.PCM.CON ---
History of Present Illness - History of Present Illness History of Present Illness: Palliative consult requested by Dr Carrington Navarro copied to Dr Scott Varela Reason: Goals of care 68 year old male with history of left lung cancer s/p penumonectomy, HTN, HIV who presented to the ED on 06/18 with shortness of breath and hypoxemia. During recent hospitalization he was found to found to have a new right lung mass, biopsy revealed squamous cell carcinoma. He is s/p chemotherapy. He denied fever, chills, night sweats, nausea,vomiting, diarrhea, dizziness, headache chest or abdominal pain. Labs 06/18: Wbc, 14.0, Hgb 16.7, Plt 196,< NA 144, K 4.1, Bun 25, Engineer Byproduct 1.0. glucose 253, Ast 34, Alt 26, LDH 126, Troponin 0.06, BNP 473,T Prot. 8.4, Procalcitionin 0.05. Blood cultures negative, L Pneumophelia negative. Chest ray:: new patchy alveloar infiltrate in right lung, no change in the opacified left lung. PET CT 06/06/18: large 9.3X 8.0X8.3cm multi lobulated FDG avid mass lesion located in the anterior/superior left lower lobe with extension to the right hilum, metastatic adenopathy in the mediastinum,precarinal/pertracheal region measuring 4.0X2.75 cm, as well as large subcarinal mass 3.0X2.2 cm, mass like appearance in the proximal esophogus>endo recommended, left pneumonectomy, possible left true vocal cord paralysis PMHx: lung cancer s/p pneumonectomy 2013, new metastatic right lung lesion >squamous cell cancer s/p chemotherapy,HIV, HTN, HIV, HTN,DM Social History: Former heavy smoker, no drugs or alcohol use. Retired, lives w ith family. Family History:Non contributory Advance Care Planning: The patient does not have an Advanced Directive Past Patient History - Infectious Disease Hx of Infectious Diseases: None - Past Social History Smoking Status: Unknown If Ever Smoked - CARDIAC Hx Pacemaker: No - PULMONARY Hx Lung Cancer: Yes Other/Comment: Left pneumonectomy. Mass noted to the Rt. lung - NEUROLOGICAL Hx Neurological Disorder: No - HEENT Hx HEENT Problems: Yes (eyeglasses) - RENAL Hx Chronic Kidney Disease: No - ENDOCRINE/METABOLIC Hx Endocrine Disorders: No - HEMATOLOGICAL/ONCOLOGICAL Hx Blood Transfusions: No - INTEGUMENTARY Hx Dermatological Problems: Yes Other/Comment: multiple tatoos - MUSCULOSKELETAL/RHEUMATOLOGICAL Hx Musculoskeletal Disorders: No - GASTROINTESTINAL Hx Gastrointestinal Disorders: Yes (weight loss, appetite good) - GENITOURINARY/GYNECOLOGICAL Hx Genitourinary Disorders: No - PSYCHIATRIC Hx Emotional Abuse: No Hx Physical Abuse: No - SURGICAL HISTORY Hx Surgeries: Yes (LEFT PNEUMONECTOMY, BILATERAL MENISCUS SURGERY) - ANESTHESIA Hx Anesthesia Reactions: No Meds Allergies/Adverse Reactions: Allergies Allergy/AdvReac Type Severity Reaction Status Date / Time No Known Allergies Allergy Verified 06/18/18 07:29 - Medications Medications: Current Medications Acetaminophen (Tylenol 325mg Tab) 650 mg PO Q6H PRN PRN Reason: Fever >100.4 F Last Admin: 06/18/18 17:42 Dose: 650 mg Albuterol/Ipratropium (Duoneb 3 Mg/0.5 Mg (3 Ml) Ud) 3 ml IH [id number] [facility] Last Admin: 06/20/18 08:05 Dose: 3 ml Albuterol/Ipratropium (Duoneb 3 Mg/0.5 Mg (3 Ml) Ud) 3 ml IH Q2H PRN PRN Reason: Shortness of Breath Azithromycin (Zithromax) 500 mg PO DAILY [facility]; Protocol Last Admin: 06/19/18 11:50 Dose: 500 mg Diazepam (Valium) 5 mg PO HS [facility]; Protocol Last Admin: 06/19/18 22:16 Dose: 5 mg Efavirenz/Emtricitabine/Tenofovir (Atripla 600 Mg-200 Mg-300 Mg) 1 tab PO HS S ; Protocol Last Admin: 06/19/18 22:21 Dose: 1 tab Heparin Sodium (Porcine) (Heparin) 5,000 units SC Q8 [facility]; Protocol Last Admin: 06/20/18 05:26 Dose: 5,000 units Sodium Chloride (Sodium Chloride 0.9%) 1,000 mls @ 100 mls/hr IV .Q10H [facility] Last Admin: 06/20/18 06:32 Dose: 100 mls/hr Meropenem (Merrem Iv 1 Gm Premix) 1 gm in 50 mls @ 100 mls/hr IVPB Q8 [facility]; Protocol Last Admin: 06/20/18 05:26 Dose: 100 mls/hr Trimethoprim/Sulfamethoxazole (370 mg/ Dextrose) 500 mls @ 250 mls/hr IVPB Q8 [facility] Last Admin: 06/20/18 06:31 Dose: 250 mls/hr Insulin Human Lispro (Humalog Low) 0 units SC ACHS [facility]; Protocol Last Admin: 06/20/18 09:54 Dose: Not Given Methylprednisolone (Solu-Medrol) 40 mg IVP Q8H [facility] Last Admin: 06/20/18 05:27 Dose: 40 mg Pantoprazole Sodium (Protonix Ec Tab) 40 mg PO ACB [facility] Physical Exam - Constitutional Appears: Cachectic, Chronically Ill - Head Exam Head Exam: NORMOCEPHALIC - Eye Exam Eye Exam: Normal appearance, PERRL - ENT Exam ENT Exam: Mucous Membranes Moist - Respiratory Exam Respiratory Exam: Decreased Breath Sounds, Rhonchi - Cardiovascular Exam Cardiovascular Exam: +S1, +S2 - GI/Abdominal Exam GI & Abdominal Exam: Normal Bowel Sounds, Soft Additional comments: no tenderness Results - Vital Signs Recent Vital Signs: Last Vital Signs Temp 98.0 F 06/20/18 05:59 Pulse 98 H 06/20/18 05:59 Resp 21 06/20/18 05:59 BP 149/98 H 06/20/18 05:59 Pulse Ox 98 06/20/18 05:59 - Labs Result Diagrams: 06/20/18 06:30 06/20/18 06:30 Labs: Laboratory Results - last 24 hr 06/18/18 06/19/18 06/19/18 08:30 06:30 14:30 WBC RBC Hgb Hct MCV MCH MCHC RDW Plt Count MPV Gran % Lymph % (Auto) Alger % (Auto) Eos % (Auto) Baso % (Auto) Gran # Lymph # (Auto) Alger # (Auto) Eos # (Auto) Baso # (Auto) pCO2 pO2 HCO3 ABG pH ABG Total CO2 ABG O2 Saturation ABG Base Excess ABG Potassium Glucose Lactate FiO2 Sodium Potassium Chloride Carbon Dioxide Anion Gap BUN Creatinine Est GFR ( Amer) Est GFR (Non-Af Amer) POC Glucose (mg/dL) Random Glucose Calcium Total Bilirubin AST ALT Alkaline Phosphatase Lactate Dehydrogenase 674 Total Protein Albumin Globulin Albumin/Globulin Ratio Procalcitonin < 0.05 L Arterial Blood Potassium Ur L.pneumophila Ag Negative 06/19/18 06/20/18 06/20/18 21:46 06:30 06:30 WBC 9.7 RBC 6.28 H Hgb 14.6 Hct 46.1 MCV 73.4 L MCH 23.2 L MCHC 31.7 RDW 14.3 Plt Count 198 MPV 10.8 Gran % 85.1 H Lymph % (Auto) 11.8 L Alger % (Auto) 3.1 Eos % (Auto) 0.0 L Baso % (Auto) 0.0 Gran # 8.27 H Lymph # (Auto) 1.2 Alger # (Auto) 0.3 Eos # (Auto) 0.0 Baso # (Auto) 0.00 pCO2 pO2 HCO3 ABG pH ABG Total CO2 ABG O2 Saturation ABG Base Excess ABG Potassium Glucose Lactate FiO2 Sodium 141 Potassium 4.3 Chloride 107 Carbon Dioxide 26 Anion Gap 12 BUN 20 Creatinine 0.9 Est GFR ( Amer) > 60 Est GFR (Non-Af Amer) > 60 POC Glucose (mg/dL) 105 Random Glucose 156 H Calcium 7.9 L Total Bilirubin 0.7 AST 43 ALT 38 Alkaline Phosphatase 87 Lactate Dehydrogenase Total Protein 7.1 Albumin 3.3 Globulin 3.8 Albumin/Globulin Ratio 0.9 L Procalcitonin Arterial Blood Potassium Ur L.pneumophila Ag 06/20/18 06/20/18 08:15 08:28 WBC RBC Hgb Hct MCV MCH MCHC RDW Plt Count MPV Gran % Lymph % (Auto) Alger % (Auto) Eos % (Auto) Baso % (Auto) Gran # Lymph # (Auto) Alger # (Auto) Eos # (Auto) Baso # (Auto) pCO2 36 pO2 60.0 L HCO3 21.8 ABG pH 7.39 ABG Total CO2 22.9 ABG O2 Saturation 93.6 L ABG Base Excess -2.6 L ABG Potassium 4.0 Glucose 219 H Lactate 2.1 FiO2 60.0 Sodium 137.0 Potassium Chloride 104.0 Carbon Dioxide Anion Gap BUN Creatinine Est GFR ( Amer) Est GFR (Non-Af Amer) POC Glucose (mg/dL) 217 H Random Glucose Calcium Total Bilirubin AST ALT Alkaline Phosphatase Lactate Dehydrogenase Total Protein Albumin Globulin Albumin/Globulin Ratio Procalcitonin Arterial Blood Potassium 4.0 Ur L.pneumophila Ag Assessment & Plan - Assessment and Plan (Free Text) Assessment: 68 year old male with history of metastatic squamous cell cancer s/p chemotherapy, HIV, HTN, DM who is admitted with respiratory insufficiency, hypoxia, shortness of breath,leukocytosis, pneumonia. Patient is alert and oriented, dyspniec. Goals of care discussed. Patient intends to continue chemotherapy, will f/u with Dr Rojas regarding next treatment. Advance care planning alos discussed. Patient states he does not want to be intubated or have CPR. He understands the ramifications of these procedures and is clear he does not want them. He appointed his w ex as his health care surrogate. He states that he hasn't discussed this with his family. I encouraged him to do so. I also offered to meet with his familyto assist with this conversation. Time spent with aptinet in goals of care and advance care plannig discussion, 30 minutes Plan: Goals of care and advance care planning, POLST: DNR/DNI. Sepsis:ID following on Vanocomycin , Merrem ,Zithromax. LDH, Fungitell assay CD4 and HIV VL pending. Pulmonary: Dr. Navarro following. Daily chest x ray, continue nebulizers, IV steroids. Squamous Cell Lung Cancer: Dr Rojas will f/u as out patient
--- NOTE | 2018-06-20 12:33 | CARD ---
APPROVED REPORT Date of service: 06/19/2018 EXAM: Two-dimensional and M-mode echocardiogram with Doppler and color Doppler. INDICATION Congestive Heart Failure 2D DIMENSIONS IVSd1.0 (0.7-1.1cm)LVDd4.8 (3.9-5.9cm) PWd1.1 (0.7-1.1cm)LVDs3.6 (2.5-4.0cm) FS (%) 25.4 %LVEF (%)49.9 (>50%) M-Mode DIMENSIONS Aortic Root3.80 (2.2-3.7cm)Aortic Cusp Exc.1.50 (1.5-2.0cm) Aortic Valve AoV Peak Utjzbggs554.0cm/Katherin Peak GR.7mmHg Mitral Valve MV E Spnvzkvr26.2cm/sMV A Spyhfspz87.7cm/sE/A ratio1.6 TDI Lateral E' Peak V13.10cm/sMedial E' Peak V9.16cm/sE/Lateral E'7.4 E/Medial E'10.6 Pulmonary Valve PV Peak Rajpajvn47.0cm/sPV Peak Grad.1mmHg Tricuspid Valve TR Peak Awfejcwl194gj/sRAP QDDQFHAH90icWmID Peak Gr.35mmHg [id number] LEFT VENTRICLE The left ventricle is normal size. The left ventricular function is normal. The left ventricular ejection fraction is within the normal range.Ej.Fr:50%. RIGHT VENTRICLE The right ventricle is mildly dilated. ATRIA The left atrium is mildly dilated. The right atrium is mildly dilated. AORTIC VALVE Aortic Valve thickened but opening is Normal. MITRAL VALVE Thickened Mitral Valve Opening Normal. Mitral regurgitation is moderate. TRICUSPID VALVE The tricuspid valve is normal in structure. There is moderate tricuspid regurgitation. RVSP 45mm Hg. Mild Pulmonary Hypertension. PERICARDIAL EFFUSION There is no pericardial effusion. <Conclusion> The left ventricle is normal size. The left ventricular function is normal. The left ventricular ejection fraction is within the normal range.Ej.Fr:50%. The right ventricle is mildly dilated. The left atrium is mildly dilated. The right atrium is mildly dilated. Aortic Valve thickened but opening is Normal. Thickened Mitral Valve Opening Normal. Mitral regurgitation is moderate. There is no pericardial effusion. The tricuspid valve is normal in structure. There is moderate tricuspid regurgitation. RVSP 45mm Hg. Mild Pulmonary Hypertension.
--- NOTE | 2018-06-20 12:43 | CP.PCM.PN ---
Subjective - Date & Time of Evaluation Date of Evaluation: 06/20/18 Time of Evaluation: 11:05 - Subjective Subjective: Still having difficulty breathing, no fevers, no chest pain. Objective - Vital Signs/Intake and Output Vital Signs (last 24 hours): Temp Pulse Resp BP Pulse Ox 98.0 F 98 H 21 149/98 H 98 06/20/18 05:59 06/20/18 05:59 06/20/18 05:59 06/20/18 05:59 06/20/18 05:59 Intake and Output: 06/19/18 06/20/18 18:59 06:59 Intake Total 0 Output Total 350 Balance -350 - Medications Medications: Current Medications Acetaminophen (Tylenol 325mg Tab) 650 mg PO Q6H PRN PRN Reason: Fever >100.4 F Last Admin: 06/18/18 17:42 Dose: 650 mg Albuterol/Ipratropium (Duoneb 3 Mg/0.5 Mg (3 Ml) Ud) 3 ml IH [id number] DAQUAN Last Admin: 06/20/18 02:40 Dose: Not Given Azithromycin (Zithromax) 500 mg PO DAILY [facility]; Protocol Last Admin: 06/19/18 11:50 Dose: 500 mg Diazepam (Valium) 5 mg PO HS [facility]; Protocol Last Admin: 06/19/18 22:16 Dose: 5 mg Efavirenz/Emtricitabine/Tenofovir (Atripla 600 Mg-200 Mg-300 Mg) 1 tab PO HS [facility]; Protocol Last Admin: 06/19/18 22:21 Dose: 1 tab Heparin Sodium (Porcine) (Heparin) 5,000 units SC Q8 [facility]; Protocol Last Admin: 06/20/18 05:26 Dose: 5,000 units Sodium Chloride (Sodium Chloride 0.9%) 1,000 mls @ 100 mls/hr IV .Q10H [facility] Last Admin: 06/20/18 06:32 Dose: 100 mls/hr Meropenem (Merrem Iv 1 Gm Premix) 1 gm in 50 mls @ 100 mls/hr IVPB Q8 [facility]; Protocol Last Admin: 06/20/18 05:26 Dose: 100 mls/hr Trimethoprim/Sulfamethoxazole (370 mg/ Dextrose) 500 mls @ 250 mls/hr IVPB Q8 [facility] Last Admin: 10/10/18 06:31 Dose: 250 mls/hr Insulin Human Lispro (Humalog Low) 0 units SC ACHS [facility]; Protocol Last Admin: 06/19/18 22:30 Dose: Not Given Methylprednisolone (Solu-Medrol) 40 mg IVP Q8H [facility] Last Admin: 06/20/18 05:27 Dose: 40 mg Pantoprazole Sodium (Protonix Ec Tab) 40 mg PO ACB [facility] - Labs Labs: 06/19/18 05:40 06/19/18 05:40 - Constitutional Appears: Chronically Ill - Head Exam Head Exam: NORMAL INSPECTION - Respiratory Exam Respiratory Exam: Decreased Breath Sounds, Rales (scattered) - Cardiovascular Exam Cardiovascular Exam: +S1, +S2 - GI/Abdominal Exam GI & Abdominal Exam: Soft. absent: Tenderness Assessment and Plan - Assessment and Plan (Free Text) Plan: Assessment Severe sepsis with acute hypoxic respiratory failure due to right lower lobe HCAP, R/O PJP in this patient with chronic HIV infection metastatic lung cancer (S/P left lung resection, but now has a newly discovered right lung mass) HTN Plan continue Bactrim IV, Merrem and Zithromax (day 3); follow up LDH and Fungitell - would be ideal to have patient undergo CT chest discussed with Dr. Navarro follow up CD4 count and HIV VL - as per patient, he takes Atripla and his VL is undetectable will continue to monitor clinically
[2018-06-20 13:05] LABS: VENOUS BLOOD GAS BASE EXCESS -0.8 mmol/L (0.0-2.0); VENOUS BLOOD GAS PO2 37 mm/Hg (30-55); VENOUS BLOOD PH 7.31 (7.32-7.43)
[2018-06-20 17:12] LABS: VENOUS BLOOD GAS BASE EXCESS 0.3 mmol/L (0.0-2.0); VENOUS BLOOD GAS PO2 42 mm/Hg (30-55); VENOUS BLOOD PH 7.37 (7.32-7.43)
[2018-06-20] MEDS: Efavirenz/Emtricitabine/Teno 1 TAB PO SCH (22:30)
--- NOTE | 2018-06-20 22:47 | PN ---
DATE: 06/20/2018 HISTORY OF PRESENT ILLNESS: Mr. Lockett is a 68-year-old male with remote history of lung cancer status post left pneumonectomy several years ago. He presented with extreme shortness of breath, hypoxic respiratory failure. He had recent CAT scan done which showed recurrence of lung cancer, large mediastinal mass extending into the left lower lobe around 9 cm, total whiteout of the left lung right lower lobe pneumonitis. He was admitted to ICU transferred out of ICU. He is currently on high-flow oxygen very tachycardiac, tachypneic, short of breath, cannot finish full sentences. REVIEW OF SYSTEMS: As per HPI. Rest of 12-point review systems reviewed negative. SOCIAL HISTORY: HIV positive, former smoker. No history of drug abuse. ALLERGIES: NO KNOWN DRUG ALLERGIES. FAMILY HISTORY: Noncontributory. SOCIAL HISTORY: Lives at home with . PHYSICAL EXAMINATION: GENERAL: Tachypneic, tachycardiac, hypoxia, on high-flow oxygen. Not able to lay flat, not able to complete sentences. HEENT: Pallor positive. NECK: No lymphadenopathy. CHEST: Air entry decreased on both sides, conducted breath sounds present. CARDIOVASCULAR: Tachycardia present. ABDOMEN: Soft, nontender. No hepatosplenomegaly. EXTREMITIES: No edema. NEUROLOGIC: Alert, oriented x3. No focal sensory motor deficit. LABORATORY DATA: White count 9.7, hemoglobin 14.6, hematocrit 46.1, platelet 198. Glucose 172. Legionella negative. MEDICATION: Tylenol 650 every 6 hour p.r.n., DuoNeb every 6 hour, Zithromax 500 p.o. daily, Valium 5 mg p.o. at bedtime at , heparin 5000 subcu every 8 hours, insulin sliding scale, Solu-Medrol 40 mg every 8 hour, Protonix 40 mg daily, IV fluids at 100 mL an hour, Bactrim 250-370 mg every 8 hours. ASSESSMENT/PLAN 1. Recurrent lung cancer. 2. Hypoxic respiratory failure number 3. Right lower lobe pneumonia. PLAN: Currently on high-flow oxygen. We will continue IV antibiotic, meropenem and Bactrim. ID following. Dr. Mackey's notes reviewed. Continue bronchodilators, Solu-Medrol every 8 hour. Pulmonary, Dr. Navarro following. Condition remained critical. Discussed with the at bedside. Discussed with Dr. Rojas regarding initiation of chemotherapy. He is currently not stable to be discharged. Chemotherapy will be initiated when he is stable clinically. Discussed with the staff nurse. Mirella Flores MD TEZ
[2018-06-21] MEDS: Albuterol-Ipratrop 3 mg / 0.5 (3 ml) UD IH SCH ×4 (02:00→20:21)
[2018-06-21] MEDS: WATER IVPB SCH ×3 (05:37→21:54)
[2018-06-21] MEDS: TRIMETHOPRIM IVPB SCH ×3 (05:37→21:54)
[2018-06-21] MEDS: DEXTROSE 5% IVPB SCH ×3 (05:37→21:54)
[2018-06-21] MEDS: SULFAMETHOXAZOLE IVPB SCH ×3 (05:37→21:54)
[2018-06-21] MEDS: MethylPREDNISolone 40 mg Vial IVP SCH ×3 (05:38→21:54)
[2018-06-21] MEDS: Meropenem IV 1 gm in NS 1 GM/50 ML BAG IVPB SCH ×3 (05:39→21:49)
[2018-06-21] MEDS: Sodium Chloride 0.9% 1,000 ML IV SCH ×3 (05:40→21:55)
[2018-06-21 06:50] LABS: GRAN # 6.75 (1.4-6.5); GRAN % 81.4 % (50.0-68.0); LYMPH % 12.5 % (22.0-35.0); MEAN CELL VOLUME 72.5 fl (80.0-105.0); MEAN CORPUSCULAR HEMOGLOBIN 22.5 pg (25.0-35.0); MEAN PLATELET VOLUME 10.7 fl (7.0-11.0); MONO # 0.5 (0.1-0.6); MONO % 6.1 % (1.0-6.0); RBC 4.94 10^6/uL (3.5-6.1); WHITE BLOOD COUNT 8.3 10^3/ul (4.5-11.0)
[2018-06-21 07:09] LABS: HEMOGLOBIN 11.1 g/dL (14.0-18.0)
[2018-06-21 07:45] LABS: ALB/GLOB RATIO 0.6 (1.1-1.8); ALBUMIN 2.1 g/dL (3.0-4.8); ALT/SGPT 61 U/L (7-56); AST/SGOT 60 U/L (17-59); BLOOD UREA NITROGEN 17 mg/dL (7-21); CALCIUM 5.7 mg/dL (8.4-10.5); GFR NON-AFRICAN AMERICAN > 60
[2018-06-21] MEDS: Insulin Lispro (humaLOG) LOW Coverage SC SCH ×4 (08:39→22:00)
[2018-06-21] MEDS: Pantoprazole 40 mg EC Tab PO SCH (08:40)
[2018-06-21 09:17] LABS: % CD4 (T HELPER CELL) 27 Percent (30-61); % CD8 (SUPPRESSOR T CELL) 42 Percent (12-42); ABSOLUTE CD4 CELLS 318 Cells/mcL (490-1740); ABSOLUTE CD8 CELLS 493 Cells/mcL (180-1170); ABSOLUTE LYMPHOCYTES 1186 Cells/mcL (850-3900); HELPER/SUPPRESSOR RATIO 0.65 Ratio (0.86-5.00)
[2018-06-21] MEDS: Potassium Chloride 20 mEq ER Tab PO SCH ×2 (09:30→18:23)
--- NOTE | 2018-06-21 09:44 | PN ---
DATE: 06/21/2018 PULMONARY PROGRESS NOTE SUBJECTIVE: The patient is sitting in bed. He states that he is markedly improved. He still has some minimal shortness of breath on exertion, but at rest, he is fine. He is anxious to be discharged. PHYSICAL EXAMINATION: VITAL SIGNS: Remain stable. He is afebrile. O2 sat is 98% on supplemental oxygen via nasal cannula, pulse is 68, respiratory rate 16. HEENT: Normocephalic, atraumatic. NECK: Supple. No JVD. No lymphadenopathy. No bruit. CARDIOVASCULAR: Regular rhythm. S1, S2 without murmur, gallop or rub. CHEST: Lungs, minimal rhonchi throughout both lung parry. No longer are wheezes auscultated. Global decreased breath sounds on the left. ABDOMEN: Soft. Bowel sounds normoactive without mass, guarding, rebound or organomegaly. EXTREMITIES: Reveal no clubbing, cyanosis or edema. There is no Homans' sign. SKIN: Shows no rash or excoriation. NEUROLOGIC: No focal findings. LABORATORY DATA: No laboratory studies. Chest x-ray done yesterday shows no significant change. CLINICAL IMPRESSION: 1. Status post hypoxic respiratory failure. 2. Right lower lobe pneumonia. 3. Lung cancer (advanced). 4. Chronic obstructive pulmonary disease (advanced). 5. Resolving bronchospasm. PLAN: Continue vigorous bronchodilator with corticosteroids. The patient plans to be discharged soon. He remains on antibiotic therapy as per Infectious Disease. Continue to monitor his white blood cell count and signs of sepsis/infection. We will discuss the long-term prognosis with his PMD and attempt to follow his infection to resolution regarding his lungs cancer, this needs further oncologic intervention. We will discuss with you. Gene Addison MD
[2018-06-21] MEDS: Calcium-Vit D 250 mg-125 Units Tab UD PO SCH (10:05)
[2018-06-21 10:19] LABS: HDL CHOLESTEROL 25 mg/dL (29-60)
[2018-06-21 10:29] LABS: LDL CHOLESTEROL 56 mg/dL (0-129)
--- NOTE | 2018-06-21 10:31 | PN ---
DATE: 06/21/2018 FOLLOWUP NOTE SUBJECTIVE: He is still in significant respiratory distress. Calcium declined to 5.7. He has recurrent lung cancer, large mediastinal mass extending ini to the left lower lobe, 9 cm. Currently, on high-flow oxygen. Being treated for pneumonia, currently on IV antibiotics. REVIEW OF SYSTEMS: As per HPI. Rest of 12-point review of systems reviewed negative. PHYSICAL EXAMINATION: VITAL SIGNS: Respiratory distress, respiratory rate 25 per minute, blood pressure 129/92, heart rate is 104, oxygen saturation 97% on 100% oxygen, temperature 97.8. No fever. HEENT: Pallor positive. NECK: No lymphadenopathy. CHEST: Air entry decreased, bilateral. CARDIOVASCULAR: Tachycardia. S1, S2 normal. No murmur. No gallop. ABDOMEN: Soft, nontender. No hepatosplenomegaly. EXTREMITY: No edema. LABORATORY DATA: White count 8.3, hemoglobin 11, hematocrit 35.8, platelet count 164. Sodium 144, potassium 3.2, calcium 5.7, creatinine 0.8, glucose 121. MEDICATIONS: Tylenol 650 every 6 hours p.r.n., DuoNeb, Zithromax 500 daily, Valium 500 mg p.o. at bedtime, Atripla, sliding scale insulin, Solu-Medrol, IV fluid at 100 mL an hour, Bactrim. ASSESSMENT: 1. Hypoxic respiratory failure. 2. Recurrent lung cancer. 3. Respiratory distress. 4. Right lower lobe pneumonia. PLAN: Currently, on high-flow oxygen. We will continue that. Continue IV antibiotics as per ID, meropenem and Bactrim. We will replete the calcium, calcium gluconate 1 g IV to be given today. Potassium is low, hypokalemia, 3.2. We will give oral potassium, K-Dur 20 mEq p.o. b.i.d. Continue bronchodilators. Hemoglobin and hematocrit stable. Renal functions within normal limits. Continue heparin for DVT prophylaxis. The patient made himself DNR/DNI. Mirella Flores MD
--- NOTE | 2018-06-21 17:12 | CP.PCM.PN ---
Subjective - Date & Time of Evaluation Date of Evaluation: 06/21/18 Time of Evaluation: 10:50 - Subjective Subjective: Still with shortness of breath, no fevers, but feeling a little better. Objective - Vital Signs/Intake and Output Vital Signs (last 24 hours): Temp Pulse Resp BP Pulse Ox 97.8 F 89 20 129/92 H 97 06/21/18 06:00 06/21/18 06:00 06/21/18 06:00 06/21/18 06:00 06/21/18 06:00 Intake and Output: 06/20/18 06/21/18 18:59 06:59 Intake Total 390 4040 Output Total 750 700 Balance -360 3340 - Medications Medications: Current Medications Acetaminophen (Tylenol 325mg Tab) 650 mg PO Q6H PRN PRN Reason: Fever >100.4 F Last Admin: 06/18/18 17:42 Dose: 650 mg Albuterol/Ipratropium (Duoneb 3 Mg/0.5 Mg (3 Ml) Ud) 3 ml IH [id number] DAQUAN Last Admin: 06/21/18 02:00 Dose: 3 ml Albuterol/Ipratropium (Duoneb 3 Mg/0.5 Mg (3 Ml) Ud) 3 ml IH Q2H PRN PRN Reason: Shortness of Breath Azithromycin (Zithromax) 500 mg PO DAILY [facility]; Protocol Last Admin: 06/20/18 09:59 Dose: 500 mg Diazepam (Valium) 5 mg PO HS [facility]; Protocol Last Admin: 06/20/18 23:38 Dose: 5 mg Efavirenz/Emtricitabine/Tenofovir (Atripla 600 Mg-200 Mg-300 Mg) 1 tab PO HS [facility]; Protocol Last Admin: 06/20/18 22:30 Dose: 1 tab Heparin Sodium (Porcine) (Heparin) 5,000 units SC Q8 [facility]; Protocol Last Admin: 06/21/18 05:38 Dose: 5,000 units Sodium Chloride (Sodium Chloride 0.9%) 1,000 mls @ 100 mls/hr IV .Q10H [facility] Last Admin: 06/21/18 05:40 Dose: 100 mls/hr Meropenem (Merrem Iv 1 Gm Premix) 1 gm in 50 mls @ 100 mls/hr IVPB Q8 [facility]; Protocol Last Admin: 06/21/18 05:39 Dose: 100 mls/hr Trimethoprim/Sulfamethoxazole (370 mg/ Dextrose) 500 mls @ 250 mls/hr IVPB Q8 [facility] Last Admin: 06/21/18 05:37 Dose: 250 mls/hr Insulin Human Lispro (Humalog Low) 0 units SC ACHS [facility]; Protocol Last Admin: 06/20/18 22:30 Dose: Not Given Methylprednisolone (Solu-Medrol) 40 mg IVP Q8H [facility] Last Admin: 06/21/18 05:38 Dose: 40 mg Pantoprazole Sodium (Protonix Ec Tab) 40 mg PO ACB [facility] Last Admin: 06/20/18 09:59 Dose: 40 mg - Labs Labs: 06/20/18 06:30 06/20/18 06:30 - Constitutional Appears: Chronically Ill - Head Exam Head Exam: NORMAL INSPECTION - Neck Exam Neck Exam: absent: Meningismus - Respiratory Exam Respiratory Exam: Decreased Breath Sounds, Rhonchi (scattered) - Cardiovascular Exam Cardiovascular Exam: +S1, +S2 - GI/Abdominal Exam GI & Abdominal Exam: Soft. absent: Tenderness Assessment and Plan - Assessment and Plan (Free Text) Plan: Assessment Severe sepsis with acute hypoxic respiratory failure due to right lower lobe HCAP, R/O PJP in this patient with chronic HIV infection metastatic lung cancer (S/P left lung resection, but now has a newly discovered right lung mass) HTN Plan continue Bactrim IV, Merrem and Zithromax (day 4); follow up LDH and Fungitell - would be ideal to have patient undergo CT chest discussed with Dr. Navarro CD4 count is 318 and HIV VL is 1.36 - patient is taking Atripla and he may need adjustment of his ART regimen as an outpatient will continue to monitor clinically
[2018-06-21] MEDS: Efavirenz/Emtricitabine/Teno 1 TAB PO SCH (21:52)
[2018-06-22] MEDS: Albuterol-Ipratrop 3 mg / 0.5 (3 ml) UD IH SCH ×4 (01:08→19:34)
[2018-06-22] MEDS: Sodium Chloride 0.9% 1,000 ML IV SCH ×4 (02:15→22:30)
[2018-06-22] MEDS: TRIMETHOPRIM IVPB SCH ×2 (06:01→14:38)
[2018-06-22] MEDS: WATER IVPB SCH ×2 (06:01→14:38)
[2018-06-22] MEDS: SULFAMETHOXAZOLE IVPB SCH ×2 (06:01→14:38)
[2018-06-22] MEDS: DEXTROSE 5% IVPB SCH ×2 (06:01→14:38)
[2018-06-22] MEDS: MethylPREDNISolone 40 mg Vial IVP SCH ×3 (06:02→21:40)
[2018-06-22] MEDS: Meropenem IV 1 gm in NS 1 GM/50 ML BAG IVPB SCH ×3 (06:02→21:39)
[2018-06-22 07:09] LABS: GRAN # 7.44 (1.4-6.5); GRAN % 78.3 % (50.0-68.0); LYMPH # 1.5 (1.2-3.4); LYMPH % 15.2 % (22.0-35.0); MEAN CELL VOLUME 71.5 fl (80.0-105.0); MEAN CORPUSCULAR HEMOGLOBIN 22.8 pg (25.0-35.0); MEAN CORPUSCULAR HGB CONC 31.9 g/dl (31.0-37.0); MEAN PLATELET VOLUME 10.7 fl (7.0-11.0); MONO # 0.6 (0.1-0.6); MONO % 6.5 % (1.0-6.0); RBC 5.92 10^6/uL (3.5-6.1); WHITE BLOOD COUNT 9.5 10^3/ul (4.5-11.0)
[2018-06-22 07:18] LABS: HEMOGLOBIN 13.5 g/dL (14.0-18.0)
[2018-06-22 07:34] LABS: ALBUMIN 3.1 g/dL (3.0-4.8); ALT/SGPT 78 U/L (7-56); AST/SGOT 57 U/L (17-59); BLOOD UREA NITROGEN 23 mg/dL (7-21); CALCIUM 8.1 mg/dL (8.4-10.5); GFR NON-AFRICAN AMERICAN > 60
[2018-06-22] MEDS: Insulin Lispro (humaLOG) LOW Coverage SC SCH ×4 (08:23→22:00)
[2018-06-22] MEDS: Pantoprazole 40 mg EC Tab PO SCH (08:28)
[2018-06-22] MEDS: Calcium-Vit D 250 mg-125 Units Tab UD PO SCH (09:28)
[2018-06-22] MEDS: Potassium Chloride 20 mEq ER Tab PO SCH ×2 (09:28→17:30)
--- NOTE | 2018-06-22 09:37 | PN ---
DATE: 06/22/2018 PULMONARY PROGRESS NOTE SUBJECTIVE: The patient was seen and examined at the bedside. He is receiving currently Aerosol therapy with DuoNeb and he is on oxygen by nasal cannula. The patient is on intravenous antibiotics, meropenem and azithromycin as well as Solu-Medrol intravenously. PHYSICAL EXAMINATION: VITAL SIGNS: Temperature is 97.9, pulse 88, respirations 18, pule oximetry is 97 on nasal cannula, blood pressure is 117/71. HEENT: Head, ears, nose and throat is within normal limits. NECK: Supple with no jugular vein distentions. CARDIOVASCULAR: S1, S2. No S3. Regular. PULMONARY: Diminished breath sounds bilaterally with diffuse rhonchi and few expiratory wheezes. GASTROINTESTINAL: Soft, nontender. No organomegaly. EXTREMITIES: No pedal edema. SKIN: No acute skin rash. NEUROLOGIC: No focal deficits. LABORATORY DATA: Reviewed. Today's WBC is 9.5, hemoglobin of 13.5. Liver function tests are within normal limits. ASSESSMENT: 1. Severe chronic obstructive pulmonary disease with exacerbation. 2. Status post hypoxic respiratory failure. 3. Advanced lung cancer. 4. Resolving bronchospasm. PLAN: The patient appears to be improving with current therapy. He is still on moderate dose of intravenous steroids. He is also on nebulizer treatment and double antibiotic therapy for right lower lobe pneumonia. We will continue with current therapy and follow closely. Sandoval Del Real MD
[2018-06-22] MEDS ORDERED: Magnesium Sulfate 2 gm/50 ml 2 GM/50 ML BAG IVPB ONE (09:49)
[2018-06-22] MEDS: Magnesium Oxide 400 mg Tab UD PO SCH ×2 (10:25→17:30)
--- NOTE | 2018-06-22 11:26 | CP.PCM.PN ---
Subjective - Date & Time of Evaluation Date of Evaluation: 06/21/18 Time of Evaluation: 12:00 - Subjective Subjective: Alert, states he is feeling better today Objective - Vital Signs/Intake and Output Vital Signs (last 24 hours): Temp Pulse Resp BP Pulse Ox 97.9 F 88 26 H 117/71 97 06/22/18 06:00 06/22/18 06:00 06/22/18 09:57 06/22/18 06:00 06/22/18 06:00 Intake and Output: 06/22/18 06/22/18 06:59 18:59 Intake Total 2260 Output Total 2000 Balance 260 - Medications Medications: Current Medications Acetaminophen (Tylenol 325mg Tab) 650 mg PO Q6H PRN PRN Reason: Fever >100.4 F Last Admin: 06/18/18 17:42 Dose: 650 mg Albuterol/Ipratropium (Duoneb 3 Mg/0.5 Mg (3 Ml) Ud) 3 ml IH [id number] DAQUAN Last Admin: 06/22/18 01:08 Dose: 3 ml Albuterol/Ipratropium (Duoneb 3 Mg/0.5 Mg (3 Ml) Ud) 3 ml IH Q2H PRN PRN Reason: Shortness of Breath Azithromycin (Zithromax) 500 mg PO DAILY [facility]; Protocol Last Admin: 06/22/18 09:28 Dose: 500 mg Calcium/Vitamin D (Oscal-D 250 Mg-125 Units Tab) 2 tab PO DAILY [facility]QUAN Last Admin: 06/22/18 09:28 Dose: 2 tab Diazepam (Valium) 5 mg PO HS DAQUAN; Protocol Last Admin: 06/21/18 21:51 Dose: 5 mg Efavirenz/Emtricitabine/Tenofovir (Atripla 600 Mg-200 Mg-300 Mg) 1 tab PO HS [facility]; Protocol Last Admin: 06/21/18 21:52 Dose: 1 tab Heparin Sodium (Porcine) (Heparin) 5,000 units SC Q8 [facility]; Protocol Last Admin: 06/22/18 06:03 Dose: 5,000 units Sodium Chloride (Sodium Chloride 0.9%) 1,000 mls @ 100 mls/hr IV .Q10H [facility] Last Admin: 06/22/18 09:11 Dose: 100 mls/hr Meropenem (Merrem Iv 1 Gm Premix) 1 gm in 50 mls @ 100 mls/hr IVPB Q8 [facility]; Protocol Last Admin: 06/22/18 06:02 Dose: 100 mls/hr Trimethoprim/Sulfamethoxazole (370 mg/ Dextrose) 500 mls @ 250 mls/hr IVPB Q8 [facility] Last Admin: 06/22/18 06:01 Dose: 250 mls/hr Insulin Human Lispro (Humalog Low) 0 units SC ACHS [facility]; Protocol Last Admin: 06/22/18 08:23 Dose: Not Given Magnesium Oxide (Mag-Ox) 400 mg PO BID [facility] Last Admin: 06/22/18 10:25 Dose: 400 mg Methylprednisolone (Solu-Medrol) 40 mg IVP Q8H [facility] Last Admin: 06/22/18 06:02 Dose: 40 mg Pantoprazole Sodium (Protonix Ec Tab) 40 mg PO ACB [facility] Last Admin: 06/22/18 08:28 Dose: 40 mg Potassium Chloride (K-Dur 20 Meq Er Tab) 20 meq PO BID [facility] Last Admin: 06/22/18 09:28 Dose: 20 meq - Labs Labs: 06/22/18 06:30 06/22/18 06:30 - Constitutional Appears: Cachectic, Chronically Ill - Head Exam Head Exam: NORMAL INSPECTION - Eye Exam Eye Exam: Normal appearance, PERRL - ENT Exam ENT Exam: Mucous Membranes Moist - Respiratory Exam Respiratory Exam: Accessory Muscle Use, Decreased Breath Sounds, Wheezes - Cardiovascular Exam Cardiovascular Exam: REGULAR RHYTHM, +S1, +S2 - GI/Abdominal Exam GI & Abdominal Exam: Soft, Normal Bowel Sounds - Extremities Exam Extremities Exam: Full ROM, Normal Capillary Refill - Neurological Exam Neurological Exam: Alert, Oriented x3 - Skin Skin Exam: Dry, Pallor Assessment and Plan - Assessment and Plan (Free Text) Assessment: 68 year old male with hsity of lung cancer s/p left penumonectomy, HIV, HTRN who is admitted with RLL pneumonia, squamous cell lung cancer right lung, dyspnea, weakness, shortness of breath. Cherrie and I reviewed wishes regarding advance cqre planning. He states he wants to be DNR/DNI and that he spoke with his ex Ijeoma. She is is designated POA and is in agreement with his wishes. The patient intends to continue Plan: Gaols of care and advance care planning RLL pneumonia: Continue Bactrim, Merrem, Zithromax. ID recs appreciated. Pulmoadry: Dr Melanie martinez , continue duo nebs, O2 Deconditioning: PT/OT Squamous Cell Lung Cancer: Patiet is under Dr Rojas's care and will follow up as OP
--- NOTE | 2018-06-22 16:13 | CP.PCM.CON ---
History of Present Illness - History of Present Illness History of Present Illness: 68 yr old male w/ hx of Lung ca s/p pneumonectomy now has recurrence in the contralateral lung inoperable currently on home oxygen, HTN, HIV p/w SOB. Patient is admitted for acute shortness of breath due to his disease. Patient states that he was having hemoptysis and worsening SOB and his took him to the hospital. Patient currently has been on high flow oxygen and is currently being weaned off. States that with the steroids, antibiotics and high flow oxygen he is more comfortable. No chest pain, fevers, chills, nausea, vomiting, or other complaints. He is currently awaiting to start chemotherapy with immunotherapy at the office pending his discharge. PMD: Nichole Pulm: David ([facility] [place]) Onc: Crystal ([facility] [place]) Review of Systems - Constitutional Constitutional: As Per HPI - EENT Eyes: As Per HPI Ears: As Per HPI Nose/Mouth/Throat: As Per HPI - Cardiovascular Cardiovascular: As Per HPI - Respiratory Respiratory: As Per HPI - Gastrointestinal Gastrointestinal: As Per HPI - Genitourinary Genitourinary: As Per HPI - Reproductive: Male Reproductive:Male: As Per HPI - Musculoskeletal Musculoskeletal: As Per HPI - Integumentary Integumentary: As Per HPI - Neurological Neurological: As Per HPI - Psychiatric Psychiatric: As Per HPI - Endocrine Endocrine: As Per HPI Past Patient History - Infectious Disease Hx of Infectious Diseases: None - Past Social History Smoking Status: Unknown If Ever Smoked - CARDIAC Hx Pacemaker: No - PULMONARY Hx Lung Cancer: Yes Other/Comment: Left pneumonectomy. Mass noted to the Rt. lung - NEUROLOGICAL Hx Neurological Disorder: No - HEENT Hx HEENT Problems: Yes (eyeglasses) - RENAL Hx Chronic Kidney Disease: No - ENDOCRINE/METABOLIC Hx Endocrine Disorders: No - HEMATOLOGICAL/ONCOLOGICAL Hx Blood Transfusions: No - INTEGUMENTARY Hx Dermatological Problems: Yes Other/Comment: multiple tatoos - MUSCULOSKELETAL/RHEUMATOLOGICAL Hx Musculoskeletal Disorders: No - GASTROINTESTINAL Hx Gastrointestinal Disorders: Yes (weight loss, appetite good) - GENITOURINARY/GYNECOLOGICAL Hx Genitourinary Disorders: No - PSYCHIATRIC Hx Emotional Abuse: No Hx Physical Abuse: No - SURGICAL HISTORY Hx Surgeries: Yes (LEFT PNEUMONECTOMY, BILATERAL MENISCUS SURGERY) - ANESTHESIA Hx Anesthesia Reactions: No Meds Allergies/Adverse Reactions: Allergies Allergy/AdvReac Type Severity Reaction Status Date / Time No Known Allergies Allergy Verified 06/18/18 07:29 - Medications Medications: Current Medications Acetaminophen (Tylenol 325mg Tab) 650 mg PO Q6H PRN PRN Reason: Fever >100.4 F Last Admin: 06/18/18 17:42 Dose: 650 mg Albuterol/Ipratropium (Duoneb 3 Mg/0.5 Mg (3 Ml) Ud) 3 ml IH [id number] Last Admin: 06/22/18 08:10 Dose: 3 ml Albuterol/Ipratropium (Duoneb 3 Mg/0.5 Mg (3 Ml) Ud) 3 ml IH Q2H PRN PRN Reason: Shortness of Breath Azithromycin (Zithromax) 500 mg PO DAILY [facility]; Protocol Last Admin: 06/22/18 09:28 Dose: 500 mg Calcium/Vitamin D (Oscal-D 250 Mg-125 Units Tab) 2 tab PO DAILY [facility]QUAN Last Admin: 06/22/18 09:28 Dose: 2 tab Diazepam (Valium) 5 mg PO HS [facility]; Protocol Last Admin: 06/21/18 21:51 Dose: 5 mg Efavirenz/Emtricitabine/Tenofovir (Atripla 600 Mg-200 Mg-300 Mg) 1 tab PO HS [facility]; Protocol Last Admin: 06/21/18 21:52 Dose: 1 tab Heparin Sodium (Porcine) (Heparin) 5,000 units SC Q8 [facility]; Protocol Last Admin: 06/22/18 14:37 Dose: 5,000 units Sodium Chloride (Sodium Chloride 0.9%) 1,000 mls @ 100 mls/hr IV .Q10H [facility] Last Admin: 06/22/18 09:11 Dose: 100 mls/hr Meropenem (Merrem Iv 1 Gm Premix) 1 gm in 50 mls @ 100 mls/hr IVPB Q8 [facility]; Protocol Last Admin: 06/22/18 14:38 Dose: 100 mls/hr Insulin Human Lispro (Humalog Low) 0 units SC ACHS [facility]; Protocol Last Admin: 06/22/18 12:31 Dose: Not Given Magnesium Oxide (Mag-Ox) 400 mg PO BID [facility] Last Admin: 06/22/18 10:25 Dose: 400 mg Methylprednisolone (Solu-Medrol) 40 mg IVP Q8H [facility] Last Admin: 06/22/18 14:37 Dose: 40 mg Pantoprazole Sodium (Protonix Ec Tab) 40 mg PO ACB [facility] Last Admin: 06/22/18 08:28 Dose: 40 mg Potassium Chloride (K-Dur 20 Meq Er Tab) 20 meq PO BID [facility] Last Admin: 06/22/18 09:28 Dose: 20 meq Physical Exam - Constitutional Appears: In Acute Distress, Chronically Ill - Head Exam Head Exam: ATRAUMATIC - Eye Exam Eye Exam: EOMI, Normal appearance Pupil Exam: NORMAL ACCOMODATION - Neck Exam Neck exam: Positive for: Full Rom, Normal Inspection. Negative for: Lymphadenopathy, Thyromegaly - Respiratory Exam Respiratory Exam: Decreased Breath Sounds. absent: Clear to Auscultation Bilateral - Cardiovascular Exam Cardiovascular Exam: REGULAR RHYTHM, +S1, +S2 - GI/Abdominal Exam GI & Abdominal Exam: Normal Bowel Sounds - Rectal Exam Rectal Exam: Deferred - Extremities Exam Extremities exam: Positive for: full ROM. Negative for: joint swelling - Back Exam Back exam: FULL ROM, NORMAL INSPECTION - Neurological Exam Neurological exam: Alert, CN II-XII Intact, Oriented x3 - Skin Skin Exam: Normal Color Additional comments: multiple tattoos noted Results - Vital Signs Recent Vital Signs: Last Vital Signs Temp 97.6 F 06/22/18 12:00 Pulse 102 H 06/22/18 14:00 Resp 18 06/22/18 12:00 BP 121/84 06/22/18 12:00 Pulse Ox 96 06/22/18 09:00 - Labs Result Diagrams: 06/22/18 06:30 06/22/18 06:30 Labs: Laboratory Results - last 24 hr 06/21/18 06/21/18 06/22/18 16:37 21:32 06:30 WBC 9.5 RBC 5.92 Hgb 13.5 L D Hct 42.3 MCV 71.5 L MCH 22.8 L MCHC 31.9 RDW 14.0 Plt Count 200 MPV 10.7 Gran % 78.3 H Lymph % (Auto) 15.2 L [place] % (Auto) 6.5 H Eos % (Auto) 0.0 L Baso % (Auto) 0.0 Gran # 7.44 H Lymph # (Auto) 1.5 [place] # (Auto) 0.6 Eos # (Auto) 0.0 Baso # (Auto) 0.00 Sodium Potassium Chloride Carbon Dioxide Anion Gap BUN Creatinine Est GFR ( Amer) Est GFR (Non-Af Amer) POC Glucose (mg/dL) 138 H 139 H Random Glucose Calcium Total Bilirubin AST ALT Alkaline Phosphatase Total Protein Albumin Globulin Albumin/Globulin Ratio 06/22/18 06/22/18 06/22/18 06:30 07:44 11:34 WBC RBC Hgb Hct MCV MCH MCHC RDW Plt Count MPV Gran % Lymph % (Auto) [place] % (Auto) Eos % (Auto) Baso % (Auto) Gran # Lymph # (Auto) [place] # (Auto) Eos # (Auto) Baso # (Auto) Sodium 136 Potassium 4.5 Chloride 104 Carbon Dioxide 25 Anion Gap 12 BUN 23 H Creatinine 1.0 Est GFR ( Amer) > 60 Est GFR (Non-Af Amer) > 60 POC Glucose (mg/dL) 144 H 128 H Random Glucose 113 H Calcium 8.1 L Total Bilirubin 0.4 AST 57 ALT 78 H Alkaline Phosphatase 77 Total Protein 6.4 Albumin 3.1 Globulin 3.3 Albumin/Globulin Ratio 1.0 L Assessment & Plan - Assessment and Plan (Free Text) Assessment: 68 year old male patient with history of left pneumonectomy in 2013 for lung cancer now found to have recurrence in the contralateral lung is admitted for shortness of breath and hemoptysis. At this time his condition has improved with abx, steroids and high flow oxygen and patients is being weaned off high flow to regular oxygen. Once pateint is stable for dischrage he will start chemotherapy along with immunotherapy for his reccurence. Plan Continue high flow oxygen and wean accordingly IV antibiotics IV hydration Adequate pain control Patient will follow up with Dr. Rojas for chemotherapy at the office upon discharge. Thank you for allowing me to partake in your patients care. Sincerely, Leonard Kolb (covering for Dr. Rojas)
--- NOTE | 2018-06-22 20:32 | CP.PCM.PN ---
Subjective - Date & Time of Evaluation Date of Evaluation: 06/22/18 Time of Evaluation: 12:00 - Subjective Subjective: Breathing a little better, no fevers, but still with cough although a little less. No fevers. Objective - Vital Signs/Intake and Output Vital Signs (last 24 hours): Temp Pulse Resp BP Pulse Ox 98.2 F 96 H 22 115/87 96 06/22/18 18:00 06/22/18 18:00 06/22/18 18:00 06/22/18 18:00 06/22/18 09:00 Intake and Output: 06/22/18 06/23/18 18:59 06:59 Intake Total 1580 Output Total 750 Balance 830 - Medications Medications: Current Medications Acetaminophen (Tylenol 325mg Tab) 650 mg PO Q6H PRN PRN Reason: Fever >100.4 F Last Admin: 06/18/18 17:42 Dose: 650 mg Albuterol/Ipratropium (Duoneb 3 Mg/0.5 Mg (3 Ml) Ud) 3 ml IH [id number] DAQUAN Last Admin: 06/22/18 19:34 Dose: 3 ml Albuterol/Ipratropium (Duoneb 3 Mg/0.5 Mg (3 Ml) Ud) 3 ml IH Q2H PRN PRN Reason: Shortness of Breath Azithromycin (Zithromax) 500 mg PO DAILY [facility]QUAN; Protocol Last Admin: 06/22/18 09:28 Dose: 500 mg Calcium/Vitamin D (Oscal-D 250 Mg-125 Units Tab) 2 tab PO DAILY DAQUAN Last Admin: 06/22/18 09:28 Dose: 2 tab Diazepam (Valium) 5 mg PO HS [facility]; Protocol Last Admin: 06/21/18 21:51 Dose: 5 mg Efavirenz/Emtricitabine/Tenofovir (Atripla 600 Mg-200 Mg-300 Mg) 1 tab PO HS [facility]; Protocol Last Admin: 06/21/18 21:52 Dose: 1 tab Heparin Sodium (Porcine) (Heparin) 5,000 units SC Q8 [facility]; Protocol Last Admin: 06/22/18 14:37 Dose: 5,000 units Sodium Chloride (Sodium Chloride 0.9%) 1,000 mls @ 100 mls/hr IV .Q10H [facility] Last Admin: 06/22/18 09:11 Dose: 100 mls/hr Meropenem (Merrem Iv 1 Gm Premix) 1 gm in 50 mls @ 100 mls/hr IVPB Q8 [facility]; Protocol Last Admin: 06/22/18 14:38 Dose: 100 mls/hr Insulin Human Lispro (Humalog Low) 0 units SC ACHS [facility]; Protocol Last Admin: 06/22/18 16:54 Dose: Not Given Magnesium Oxide (Mag-Ox) 400 mg PO BID [facility] Last Admin: 06/22/18 17:30 Dose: 400 mg Methylprednisolone (Solu-Medrol) 40 mg IVP Q8H [facility] Last Admin: 06/22/18 14:37 Dose: 40 mg Pantoprazole Sodium (Protonix Ec Tab) 40 mg PO ACB [facility] Last Admin: 06/22/18 08:28 Dose: 40 mg Potassium Chloride (K-Dur 20 Meq Er Tab) 20 meq PO BID [facility] Last Admin: 06/22/18 17:30 Dose: 20 meq - Labs Labs: 06/22/18 06:30 06/22/18 06:30 - Constitutional Appears: Chronically Ill - Head Exam Head Exam: NORMAL INSPECTION - ENT Exam ENT Exam: Mucous Membranes Moist - Neck Exam Neck Exam: absent: Meningismus - Respiratory Exam Respiratory Exam: Decreased Breath Sounds - Cardiovascular Exam Cardiovascular Exam: +S1, +S2 - GI/Abdominal Exam GI & Abdominal Exam: Soft. absent: Tenderness Assessment and Plan - Assessment and Plan (Free Text) Plan: Assessment Severe sepsis with acute hypoxic respiratory failure due to right lower lobe HCAP, unlikely Pneumocystis pneumonia in this patient with chronic HIV infection metastatic lung cancer (S/P left lung resection, but now has a newly discovered right lung mass) HTN Plan on Bactrim IV, Merrem and Zithromax (day 5); LDH is normal and Fungitell is negative, making pneumocystis pneumonia unlikely - will d/c Bactrim - complete up to 7 days of antibiotics MRSA nares is negative CD4 count is 318 and HIV VL is 1.36 - patient is taking Atripla and he may need adjustment of his ART regimen as an outpatient follow up further plans of Oncology regarding new right lung mass will continue to monitor clinically
[2018-06-22] MEDS: Efavirenz/Emtricitabine/Teno 1 TAB PO SCH (21:40)
[2018-06-23] MEDS: Albuterol-Ipratrop 3 mg / 0.5 (3 ml) UD IH SCH ×4 (01:33→20:30)
[2018-06-23] MEDS: Meropenem IV 1 gm in NS 1 GM/50 ML BAG IVPB SCH ×2 (06:47→14:42)
[2018-06-23] MEDS: MethylPREDNISolone 40 mg Vial IVP SCH ×2 (06:47→21:29)
[2018-06-23] MEDS: Pantoprazole 40 mg EC Tab PO SCH (06:48)
[2018-06-23] MEDS: Sodium Chloride 0.9% 1,000 ML IV SCH ×3 (06:48→20:12)
[2018-06-23 07:29] LABS: BASO # 0.01 K/mm3 (0.0-2.0); BASO % 0.1 % (0.0-3.0); EOS % 0.1 % (1.5-5.0); GRAN # 7.59 (1.4-6.5); GRAN % 74.7 % (50.0-68.0); HEMOGLOBIN 14.6 g/dL (14.0-18.0); LYMPH # 1.7 (1.2-3.4); LYMPH % 16.2 % (22.0-35.0); MEAN CELL VOLUME 72.2 fl (80.0-105.0); MEAN CORPUSCULAR HEMOGLOBIN 23.1 pg (25.0-35.0); MEAN PLATELET VOLUME 10.6 fl (7.0-11.0); MONO # 0.9 (0.1-0.6); MONO % 8.9 % (1.0-6.0); RBC 6.32 10^6/uL (3.5-6.1); RED CELL DISTRIBUTION WIDTH 14.2 % (11.5-14.5); WHITE BLOOD COUNT 10.2 10^3/ul (4.5-11.0)
[2018-06-23] MEDS: Insulin Lispro (humaLOG) LOW Coverage SC SCH ×4 (07:46→21:37)
[2018-06-23 08:06] LABS: ALBUMIN 3.4 g/dL (3.0-4.8); ALT/SGPT 78 U/L (7-56); AST/SGOT 50 U/L (17-59); BLOOD UREA NITROGEN 28 mg/dL (7-21); CALCIUM 8.7 mg/dL (8.4-10.5); GFR NON-AFRICAN AMERICAN > 60
[2018-06-23] MEDS: Potassium Chloride 20 mEq ER Tab PO SCH ×2 (09:40→09:42)
[2018-06-23] MEDS: Calcium-Vit D 250 mg-125 Units Tab UD PO SCH (09:40)
[2018-06-23] MEDS: Magnesium Oxide 400 mg Tab UD PO SCH ×2 (09:40→17:37)
--- NOTE | 2018-06-23 11:35 | PN ---
DATE: 06/23/2018 PULMONARY PROGRESS NOTE SUBJECTIVE: Mr. Lockett is sitting in bed, feeling more comfortable. He is verbal. He states that he is markedly improved. He is watching his pulse ox numbers go up and is very happy and excited. His oxygen saturation at this time is 96%. He is elated. He states he feels better without significant shortness of breath. The patient continues on his current medication including inhaled bronchodilators and corticosteroids. He is on vigorous antibiotic therapy. PHYSICAL EXAMINATION: As described previously, VITAL SIGNS: Stable. He remains afebrile. Pulse is 84, respiratory rate 18, O2 sat 97% on nasal cannula, blood pressure 120/70. HEENT: Normocephalic, atraumatic. NECK: Supple. No JVD. No lymphadenopathy. No bruit. CARDIOVASCULAR: Regular rhythm. S1, S2 without murmur, gallop, or rub. CHEST: Global decrease in breath sounds. Minimal rhonchi throughout. Minimal expiratory wheezes throughout. No change. ABDOMEN: Soft. Bowel sounds normoactive without mass, guarding, rebound, or organomegaly. EXTREMITIES: No clubbing, cyanosis, or edema. SKIN: No rash or excoriation. NEUROLOGIC: Awake, alert, oriented. No focal findings. LABORATORY DATA: Chest x-ray shows no real change in pulmonary vascular congestion or pneumonia. Laboratory studies noted. ASSESSMENT: 1. Severe chronic obstructive pulmonary disease. 2. Acute bronchospasm, in resolution. 3. Status post hypoxic respiratory failure. 4. Advanced lung carcinoma. 5. Pulmonary vascular congestion. PLAN: Continue vigorous medical therapy. Continue inhalation therapy, try to decrease corticosteroids at the earliest possible time. Continue antibiotics as per Infectious Disease. We will discuss with primary medical doctor, Dr. Varela, as well as other consultants and decide on the need for further intervention. The patient is clinically improved. Will follow closely with you. Gene Addison MD
[2018-06-23] MEDS ORDERED: Meropenem IV 1 gm in NS 1 GM/50 ML BAG IVPB STA (14:30)
[2018-06-23] MEDS ORDERED: Sodium Chloride 0.9% 1,000 ML IV SCH (16:00)
--- NOTE | 2018-06-23 17:17 | PN ---
DATE: 06/23/2018 SUBJECTIVE: The patient is in bed, in no acute distress, nontoxic, no fever. The patient was seen earlier today. No fevers, no chills, no chest pain. PHYSICAL EXAMINATION: VITAL SIGNS: On exam, temperature is 98, blood pressure is 129/80, respiratory rate of 18, heart rate of 87, saturating at 93%. HEENT: Examination of HEENT is unremarkable. NECK: Supple. LUNGS: Have decreased breath sounds. HEART: Normal S1, S2. ABDOMEN: Soft, nontender. LABORATORY DATA: Laboratory examination reveals a white count of 10,000, hemoglobin of 14, platelets of 215. BUN of 28, creatinine of 1.2. Procalcitonin is less than 0.05. CD-4 count of 27% with 318 absolute count. The patient's HIV is 1.36 PCR. Urine for Legionella antigen is negative. Beta-1, 3 glucan is negative. Microbiology reveals yeast in the sputum. The nasal MRSA is not positive. The blood cultures are no growth. Review of orders reveals the patient to be on Atripla, meropenem, prednisone. The patient's procalcitonin is less than 0.05. Chest x-ray from 06/20/2018: Chronic left-sided opacification, right lung and right lung mass. Dr. Addison's note from today is reviewed. He states the patient has chronic obstructive lung disease and acute bronchospasm, status post hypoxic respiratory failure, advanced lung carcinoma and pulmonary vascular congestion. ASSESSMENT AND PLAN: A 68-year-old male with severe sepsis, acute hypoxic respiratory failure, right lower lobe healthcare-associated pneumonia in a patient with human immunodeficiency virus and metastatic lung cancer, status post lung resection, but now newly discovered right lung mass and hypertension, on meropenem. Since the LDH was normal and the Fungitell was negative, Dr. Mackey discontinued the Bactrim. Today is day #6 of meropenem and Zithromax. ____ too high for Pneumocystis carinii pneumonia. Also on Atripla. The Zithromax was discontinued. Currently, only on meropenem. Review of EKG reveals a QTc of 438. Maybe able to use p.o. Levaquin to complete therapy. The patient also had an echocardiogram, which showed ejection fraction of 49.9%. We will follow with you. Chris Colón MD [facility] # [id number]
[2018-06-23] MEDS: Efavirenz/Emtricitabine/Teno 1 TAB PO SCH (22:19)
[2018-06-24] MEDS: Albuterol-Ipratrop 3 mg / 0.5 (3 ml) UD IH SCH ×4 (01:40→19:30)
[2018-06-24 07:29] LABS: EOS % 0.1 % (1.5-5.0); GRAN # 6.67 (1.4-6.5); GRAN % 75.5 % (50.0-68.0); HEMOGLOBIN 14.6 g/dL (14.0-18.0); LYMPH # 1.6 (1.2-3.4); LYMPH % 17.6 % (22.0-35.0); MEAN CELL VOLUME 72.7 fl (80.0-105.0); MEAN CORPUSCULAR HEMOGLOBIN 23.6 pg (25.0-35.0); MEAN CORPUSCULAR HGB CONC 32.5 g/dl (31.0-37.0); MEAN PLATELET VOLUME 10.9 fl (7.0-11.0); MONO # 0.6 (0.1-0.6); MONO % 6.8 % (1.0-6.0); RBC 6.18 10^6/uL (3.5-6.1); RED CELL DISTRIBUTION WIDTH 14.2 % (11.5-14.5); WHITE BLOOD COUNT 8.8 10^3/ul (4.5-11.0)
[2018-06-24 07:41] LABS: ALBUMIN 3.2 g/dL (3.0-4.8); ALT/SGPT 69 U/L (7-56); AST/SGOT 37 U/L (17-59); BLOOD UREA NITROGEN 37 mg/dL (7-21); CALCIUM 8.7 mg/dL (8.4-10.5); GFR NON-AFRICAN AMERICAN > 60
[2018-06-24] MEDS: Insulin Lispro (humaLOG) LOW Coverage SC SCH ×4 (08:23→21:48)
[2018-06-24] MEDS: Pantoprazole 40 mg EC Tab PO SCH (08:46)
[2018-06-24] MEDS ORDERED: Potassium Chloride 20 mEq ER Tab PO SCH (10:00)
[2018-06-24] MEDS: MethylPREDNISolone 40 mg Vial IVP SCH ×2 (10:04→21:00)
[2018-06-24] MEDS: Magnesium Oxide 400 mg Tab UD PO SCH ×2 (10:04→17:31)
[2018-06-24] MEDS: Calcium-Vit D 250 mg-125 Units Tab UD PO SCH (10:08)
--- NOTE | 2018-06-24 14:37 | PN ---
DATE: 06/24/2018 SUBJECTIVE: The patient is seen earlier today in room 269, bed 1. No fevers, no chills. No nausea. Comfortable. PHYSICAL EXAMINATION: VITAL SIGNS: On exam, temperature is 98, blood pressure is 106/70, respiratory rate 20, heart rate of 84. HEENT: Examination of HEENT is unremarkable. NECK: Supple. LUNGS: Have decreased breath sounds. HEART: Normal S1, S2. ABDOMEN: Soft, nontender. No rebound or guarding. LABORATORY DATA: Laboratory examination reveals the white count is 8.8, hemoglobin of 14, platelets of 212. Chemistries are noted. BUN of 37, creatinine of 1.1. Procalcitonin is less than 0.05 and immunology is noted and CD-4 count of 27% with HIV PCR of 1.36 log. Microbiology reveals yeast in the sputum and nares MRSA screen is negative. The blood cultures are negative. Review of orders reveals the patient to be on Atripla, which requires renewal, which we will do so and the patient is on Solu-Medrol. Dr. Addison's note is reviewed. ASSESSMENT AND PLAN: A 68-year-old male was admitted with severe sepsis, acute hypoxic respiratory failure, right lower lobe healthcare-associated pneumonia in a patient with human immunodeficiency virus, metastatic lung cancer and status post lung resection, now newly discovered right lung mass and hypertension and day #7 of meropenem. The patient on p.o. Zithromax, was treated with Zithromax. We will switch to p.o. Levaquin to complete therapy. Continue with the efavirenz, emtricitabine, and tenofovir combination which is Atripla and meropenem has been discontinued and will complete with p.o. Levaquin 500 mg once daily x5 days. Follow the imaging and workup as per Pulmonary, as per Dr. Addison. Chris Colón MD
--- NOTE | 2018-06-24 16:07 | PN ---
DATE: 06/24/2018 PULMONARY PROGRESS NOTE SUBJECTIVE: Mr. Lockett is markedly more comfortable. He is anxious to decrease his oxygen concentration delivered. Dyspnea is improved. He is monitoring himself carefully to the extent that he is getting himself anxious. I have assured him that we will be monitoring him closely and that he does not have to worry about caring for himself. He states that he has Dr. Rojas and Dr. Varela's PA as the outpatient physicians. I explained to him that he needs to be seen by a vp software support for his respiratory insufficiency once discharged. I have given him our card and asked him to see either Dr. Navarro or myself upon discharge. CURRENT MEDICATIONS: Appear to be good. We have decreased his corticosteroids slowly and he is continuing on antibiotic therapy. PHYSICAL EXAMINATION: GENERAL: The patient is resting comfortably. VITAL SIGNS: He is afebrile. Respiratory rate 16, heart rate 80, oxygen sat 97% on nasal cannula 50%, blood pressure 124/74. HEENT: Normocephalic, atraumatic. NECK: Supple. No JVD. There are no bruits. CARDIOVASCULAR: Regular rhythm. No gallop or rub is appreciated. S1, S2 are normal. CHEST: Decrease in breath sounds with minimal rhonchi persist. There is no wheezing appreciated compared to yesterday. ABDOMEN: Soft. Bowel sounds normoactive without mass, guarding, or rebound. There is no organomegaly. EXTREMITIES: Show no clubbing or cyanosis. There is no edema. There is no tenderness on the calf. SKIN: Shows no rash or excoriation. NEUROLOGIC: The patient is awake, alert, and oriented with no focal findings. LABORATORY DATA: No new laboratory data is available today. ASSESSMENT: 1. Severe respiratory distress in resolution. 2. Severe chronic obstructive pulmonary disease - stabilizing. 3. Acute bronchospasm, in resolution. 4. Status post hypoxic respiratory failure. 5. Advanced lung carcinoma. 6. Pulmonary vascular congestion. PLAN: Continue vigorous medical therapy with supplemental oxygen, bronchodilators. Taper corticosteroids as permitted. Discuss with Dr. Varela and other consultants regarding future followup. The patient needs to be followed closely for COPD and hypoxemia. The patient states that he has oxygen at home. We will discuss all avenues prior to discharge. Continue to decrease corticosteroids slowly. We will follow closely with you. I will discuss the patient's status with Dr. Navarro who has been absent over the last 4 days, so he is up to par when he returns in the morning. In the interim, the methylprednisolone has been decreased to 40 mg every 12 hours in the morning, can be decreased to 30 mg IV push every 12 hours. We will discuss with Dr. Navarro and follow closely with you. Thank you for the opportunity to continue to the care for this sebastián patient. Gene Addison MD
--- NOTE | 2018-06-24 16:42 | PN ---
DATE: 06/24/2018 SUBJECTIVE: Patient is 68 years old, seen and examined, lying in bed. Seems to be comfortable on high flow oxygen, saturating well. Complained of some cough and congestion at times. PHYSICAL EXAMINATION VITAL SIGNS: He is afebrile. Pulse 84, respirations 20, blood pressure 106/73. LUNGS: Bilateral fair air flow. No rhonchi or crackles. Decreased breath sound at the bases. HEART: S1, S2 audible. ABDOMEN: Soft, nontender, no rebound, no guarding. NEUROLOGIC: Patient is awake, alert, oriented, and able to communicate. LABORATORY EXAM: WBC 8.8, hemoglobin 14.6, hematocrit 44.9, and platelets 212. Chemistries: Sodium 136, potassium 5.3, chloride 104, CO2 of 28. BUN 37, creatinine 1.1. Blood sugar of 120. HIV is positive. ASSESSMENT: 1. Respiratory insufficiency. 2. Right lower lobe pneumonia. 3. Human immunodeficiency virus positive. 4. Metastatic lung cancer, status post partial pneumonectomy. 5. Right lung mass. 6. Hypertension. PLAN: Patient is on nebulizer treatment. He is on meropenem. We will discontinue his potassium since he is running on the high side, we will monitor chem-7 in the a.m. He is on DVT prophylaxis. Patient's oral intake is fair. I will discontinue his IV fluid. We will follow up this patient . Alexander Ulloa MD
[2018-06-24] MEDS: Oxycodone/Acetaminophen 5/325 mg Tab PO PRN (17:31)
[2018-06-24] MEDS: Efavirenz/Emtricitabine/Teno 1 TAB PO SCH (21:00)
--- NOTE | 2018-06-24 23:28 | CP.PCM.PN ---
Subjective - Date & Time of Evaluation Date of Evaluation: 06/22/18 Time of Evaluation: 09:00 - Subjective Subjective: Shortness of breath improved. Was onnhigh flow oxygen, currently lowered to 60% O2. tolerating well. No fever. Cough present. Objective - Vital Signs/Intake and Output Vital Signs (last 24 hours): Temp Pulse Resp BP Pulse Ox 97.4 F L 89 21 135/85 100 06/24/18 12:00 06/24/18 22:00 06/24/18 23:19 06/24/18 12:00 06/24/18 06:00 Intake and Output: 06/24/18 06/25/18 18:59 06:59 Intake Total 350 Balance 350 - Medications Medications: Current Medications Acetaminophen (Tylenol 325mg Tab) 650 mg PO Q6H PRN PRN Reason: Pain, Mild (1-3) Last Admin: 06/24/18 12:25 Dose: 650 mg Albuterol/Ipratropium (Duoneb 3 Mg/0.5 Mg (3 Ml) Ud) 3 ml IH [id number] DAQUAN Last Admin: 06/24/18 19:30 Dose: 3 ml Albuterol/Ipratropium (Duoneb 3 Mg/0.5 Mg (3 Ml) Ud) 3 ml IH Q2H PRN PRN Reason: Shortness of Breath Calcium/Vitamin D (Oscal-D 250 Mg-125 Units Tab) 2 tab PO DAILY DAQUAN Last Admin: 06/24/18 10:08 Dose: 2 tab Diazepam (Valium) 5 mg PO HS DAQUAN; Protocol Last Admin: 06/24/18 20:59 Dose: 5 mg Efavirenz/Emtricitabine/Tenofovir (Atripla 600 Mg-200 Mg-300 Mg) 1 tab PO HS DAQUAN; Protocol Last Admin: 06/24/18 21:00 Dose: 1 tab Heparin Sodium (Porcine) (Heparin) 5,000 units SC Q8 [facility]QUAN; Protocol Last Admin: 06/24/18 21:00 Dose: 5,000 units Insulin Human Lispro (Humalog Low) 0 units SC ACHS DAQUAN; Protocol Last Admin: 06/24/18 21:48 Dose: Not Given Levofloxacin (Levaquin) 500 mg PO DAILY DAQUAN; Protocol Stop: 06/30/18 10:01 Magnesium Oxide (Mag-Ox) 400 mg PO BID DAQUAN Last Admin: 06/24/18 17:31 Dose: 400 mg Methylprednisolone (Solu-Medrol) 40 mg IVP Q12 [facility] Last Admin: 06/24/18 21:00 Dose: 40 mg Oxycodone/Acetaminophen (Percocet 5/325 Mg Tab) 2 tab PO Q4H PRN PRN Reason: Pain, Mild (1-3) Stop: 06/27/18 16:01 Last Admin: 06/24/18 17:31 Dose: 2 tab Pantoprazole Sodium (Protonix Ec Tab) 40 mg PO ACB [facility] Last Admin: 06/24/18 08:46 Dose: 40 mg - Labs Labs: 06/24/18 06:00 06/24/18 06:00 - Constitutional Appears: Chronically Ill - Head Exam Head Exam: ATRAUMATIC, NORMAL INSPECTION, NORMOCEPHALIC - Eye Exam Eye Exam: Normal appearance, PERRL Pupil Exam: NORMAL ACCOMODATION - ENT Exam ENT Exam: Mucous Membranes Dry - Neck Exam Neck Exam: Normal Inspection - Respiratory Exam Respiratory Exam: Accessory Muscle Use, Decreased Breath Sounds, Wheezes - Cardiovascular Exam Cardiovascular Exam: REGULAR RHYTHM, +S1, +S2 - Extremities Exam Extremities Exam: Normal Inspection - Back Exam Back Exam: NORMAL INSPECTION - Neurological Exam Neurological Exam: Alert, Awake, Normal Gait, Oriented x3 Assessment and Plan - Assessment and Plan (Free Text) Assessment: 1. recurrent advanced lung cancer. ON high flow oxygen. Respiratory distress improved. Dr. Navarro following. Chemo once status improves. 2. Left lower lobe PNA : on IV antibiotics as per ID, Dr. Mackey note reviewed. 3. Blood counts stable. 4. Patient made himself DNR/DNI. Status improved. prognosis poor.
[2018-06-25] MEDS: Albuterol-Ipratrop 3 mg / 0.5 (3 ml) UD IH SCH ×3 (02:16→19:55)
[2018-06-25 07:02] LABS: EOS % 0.3 % (1.5-5.0); GRAN # 8.49 (1.4-6.5); GRAN % 77.5 % (50.0-68.0); HEMOGLOBIN 15.4 g/dL (14.0-18.0); LYMPH # 1.7 (1.2-3.4); LYMPH % 15.2 % (22.0-35.0); MEAN CELL VOLUME 73.4 fl (80.0-105.0); MEAN CORPUSCULAR HEMOGLOBIN 22.8 pg (25.0-35.0); MEAN CORPUSCULAR HGB CONC 31.1 g/dl (31.0-37.0); MEAN PLATELET VOLUME 10.5 fl (7.0-11.0); MONO # 0.8 (0.1-0.6); RBC 6.74 10^6/uL (3.5-6.1); RED CELL DISTRIBUTION WIDTH 14.2 % (11.5-14.5)
[2018-06-25 07:29] LABS: ALBUMIN 3.7 g/dL (3.0-4.8); ALT/SGPT 60 U/L (7-56); AST/SGOT 36 U/L (17-59); BLOOD UREA NITROGEN 46 mg/dL (7-21); CALCIUM 9.6 mg/dL (8.4-10.5); GFR NON-AFRICAN AMERICAN > 60
[2018-06-25] MEDS: Insulin Lispro (humaLOG) LOW Coverage SC SCH ×4 (07:30→22:30)
--- NOTE | 2018-06-25 07:40 | PN ---
DATE: 06/25/2018 PULMONARY NOTE DICTATION SUBJECTIVE: The patient appears comfortable this morning. He is not short of breath at rest. PHYSICAL EXAMINATION: VITAL SIGNS: Temperature is 98, pulse 84, respirations 18, blood pressure 122/83. Oxygen saturation on high-flow delivery is 98%. HEENT: Normocephalic, atraumatic. No JVD. CARDIOVASCULAR: Positive S1, S2. No S3 gallop. LUNGS: Significantly decreased/minimal rhonchi - right lung. No wheezing. Decreased breath sounds - left lung. EXTREMITIES: No clubbing, cyanosis or edema. Calves are nontender to palpation. GI: Abdomen is soft, nontender and nondistended. Bowel sounds are positive. SKIN: No acute rash. NEUROLOGIC: Exam limited at the present time. IMPRESSION: 1. Acute hypoxemic respiratory failure. 2. Right lower lobe pneumonia. 3. Advanced lung cancer. 4. Advanced chronic obstructive pulmonary disease. 5. Mild bronchospasm. PLAN: The patient appears comfortable this morning. He is not short of breath at rest. He does state to feeling much better overall. I did discuss the case with the night nurse at length. The night nurse stated the patient had a very good night. On physical exam, his bronchospasm continues to resolve. In addition, the alveolar-arterial gradient also continues to resolve. I will continue the current nebulizer treatments and decrease the intravenous steroids this morning. The patient remains on antibiotic therapy. Input by Infectious Disease is noted. Clinical status of the patient is significantly improved - compared to the initial presentation. However, again, unfortunately, the overall status/prognosis for this patient remains poor. I will discuss the above with the attending physician. Kwadwo Navarro MD [facility]
[2018-06-25] MEDS ORDERED: Sodium Chloride 0.9% 250 ML IV STA (10:00)
[2018-06-25] MEDS ORDERED: Dextrose 50% SYRINGE Inj (50 ml) IVP ONE (10:04)
[2018-06-25] MEDS ORDERED: Insulin Regular 1 UNITS/0.01 ML ML IVP STA (10:04)
[2018-06-25] MEDS: levoFLOXacin 500 MG TAB PO SCH (10:19)
[2018-06-25] MEDS: Magnesium Oxide 400 mg Tab UD PO SCH ×2 (10:20→18:59)
[2018-06-25] MEDS: Pantoprazole 40 mg EC Tab PO SCH (10:20)
[2018-06-25] MEDS: Calcium-Vit D 250 mg-125 Units Tab UD PO SCH (10:20)
[2018-06-25] MEDS: MethylPREDNISolone 40 mg Vial IVP SCH ×2 (10:20→21:29)
[2018-06-25] MEDS: Sodium Chloride 0.9% 250 ML IV SCH ×2 (10:22→21:31)
--- NOTE | 2018-06-25 15:01 | PN ---
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 The patient is status post pneumonia. He is doing well. PHYSICAL EXAMINATION: GENERAL: He is awake, alert, and oriented x3. VITAL SIGNS: He is afebrile. Vital signs are stable. LABORATORY DATA: White count is down to 11. He is slightly azotemic at 46 and 1.1. He is using high-flow oxygen. He saturates with short amounts of exertion. He needs a change in his oxygen at home. He will start chemotherapy as an outpatient with Dr. Rojas. PLAN: Start physical therapy and occupational therapy, possible [facility] versus TCU versus home with home care and possible . Case was discussed with Dr. Navarro. Steve Varela MD
--- NOTE | 2018-06-25 16:06 | PN ---
DATE: 06/23/2018 SUBJECTIVE: This is a 68-year-old patient of Dr. Varela, was admitted on 06/18/2018 with history of being HIV positive, history of lung cancer, status post lobectomy, was admitted because of being septic and having infiltrate. The patient was seen and examined, sitting in bed, complained of mild shortness of breath, eating and tolerating. PHYSICAL EXAMINATION VITAL SIGNS: He is afebrile, pulse 87, respiration 18, blood pressure 129/88. LUNGS: Bilateral fair airflow decreased at bases. HEART: S1, S2 audible. ABDOMEN: Soft, nontender. No rebound, no guarding. NEUROLOGIC: The patient is awake and alert, able to communicate. LABORATORY DATA: WBC is 10.2, hemoglobin 14.6, hematocrit 45.6, platelet 215. Chemistry: Sodium 136, potassium 5.3, chloride 102, CO2 of 28, BUN 28, creatinine 1.2, blood sugar of 120. Blood cultures are negative. Sputum culture positive for yeast. X-ray on 06/20/2018 shows right lower lobe infiltrate and opacification of left lung region. ASSESSMENT: 1. Respiratory insufficiency. 2. Chronic obstructive pulmonary disease. 3. Asthmatic bronchitis. 4. Metastatic lung cancer with adenopathy. 5. Mild congestive heart failure. 6. Human immunodeficiency virus positive. PLAN: The patient is getting nebulizer treatment. DVT prophylaxis. The patient is receiving meropenem. He is on Protonix, getting prednisone every 12 hours. We will cut down his IV fluid, cut down his p.o. potassium to daily instead of b.i.d. since his potassium is running high. Followup his electrolytes. Alexander Ulloa MD
[2018-06-25] MEDS: Oxycodone/Acetaminophen 5/325 mg Tab PO PRN (16:19)
[2018-06-25] MEDS: Efavirenz/Emtricitabine/Teno 1 TAB PO SCH (21:31)
--- NOTE | 2018-06-25 23:16 | PN ---
DATE: 06/25/2018 SUBJECTIVE: The patient is in bed, no acute distress, nontoxic. Seen earlier today in 269. He appears comfortably doing well. PHYSICAL EXAMINATION VITAL SIGNS: Temperature is 99, blood pressure is 115/70, respiratory rate of 18. HEENT: Examination of HEENT is unremarkable. NECK: Supple. LUNGS: Have decreased breath sounds. HEART: Normal S1, S2. ABDOMEN: Soft, nontender. LABORATORY EXAMINATION: Reveals a white count of 11,000, hemoglobin of 15, BUN of 46, creatinine of 1.1. Immunology is noted. Serology is reviewed and cultures are reviewed. Dr. Navarro's note is reviewed. Dr. Varela's note is reviewed. ASSESSMENT AND PLAN: This is a 68-year-old male who was admitted with severe sepsis, acute hypoxic respiratory failure, right lower lobe healthcare-associated pneumonia and the patient with human immunodeficiency virus and metastatic lung cancer and lung resection, newly discovered right lung mass, has received seven days of meropenem, now on p.o. Levaquin x5 days to complete therapy in review of orders. I discussed his human immunodeficiency virus medications. He is to follow up with his primary human immunodeficiency virus binding nicker. We will follow with you. Chris Colón MD
[2018-06-26] MEDS: Albuterol-Ipratrop 3 mg / 0.5 (3 ml) UD IH SCH ×4 (01:20→19:52)
[2018-06-26] MEDS: Sodium Chloride 0.9% 250 ML IV SCH ×2 (05:29→17:46)
[2018-06-26 06:39] LABS: EOS % 0.3 % (1.5-5.0); GRAN # 7.48 (1.4-6.5); GRAN % 77.1 % (50.0-68.0); HEMOGLOBIN 14.5 g/dL (14.0-18.0); LYMPH # 1.5 (1.2-3.4); LYMPH % 15.1 % (22.0-35.0); MEAN CELL VOLUME 74.4 fl (80.0-105.0); MEAN CORPUSCULAR HEMOGLOBIN 22.9 pg (25.0-35.0); MEAN CORPUSCULAR HGB CONC 30.8 g/dl (31.0-37.0); MEAN PLATELET VOLUME 10.6 fl (7.0-11.0); MONO # 0.7 (0.1-0.6); MONO % 7.5 % (1.0-6.0); RBC 6.33 10^6/uL (3.5-6.1); RED CELL DISTRIBUTION WIDTH 14.2 % (11.5-14.5); WHITE BLOOD COUNT 9.7 10^3/ul (4.5-11.0)
[2018-06-26 07:25] LABS: ALB/GLOB RATIO 0.9 (1.1-1.8); ALBUMIN 3.3 g/dL (3.0-4.8); ALT/SGPT 66 U/L (7-56); AST/SGOT 36 U/L (17-59); BLOOD UREA NITROGEN 45 mg/dL (7-21); GFR NON-AFRICAN AMERICAN > 60
--- NOTE | 2018-06-26 07:38 | PN ---
DATE: 06/26/2018 PULMONARY NOTE DICTATION SUBJECTIVE: The patient appears comfortable this morning. He is not short of breath at rest. PHYSICAL EXAMINATION: VITAL SIGNS: Temperature is 97.6, pulse 86, respirations 18, blood pressure 130/86. Oxygen saturation on nasal cannula is 96%. HEENT: Normocephalic, atraumatic. No JVD. CARDIOVASCULAR: Positive S1, S2. No S3 gallop. LUNGS: Much less/minimal rhonchi - right lung. No wheezing. Decreased breath sounds - left lung. EXTREMITIES: No clubbing, cyanosis or edema. Calves are nontender to palpation. GI: Abdomen is soft, nontender and nondistended. Bowel sounds are positive. SKIN: No acute rash. NEUROLOGIC: Exam limited at the present time. IMPRESSION: 1. Acute hypoxemic respiratory failure. 2. Right lower lobe pneumonia. 3. Advanced lung cancer. 4. Advanced chronic obstructive pulmonary disease. 5. Mild bronchospasm. PLAN: The patient appears comfortable this morning. He is not short of breath at rest. He does state to feeling much better overall. I did discuss the case with the night nurse at length. The night nurse stated that the patient had a very good night. On physical exam, there is certainly less bronchospasm noted. In addition, the oxygen saturation on nasal cannula is now 96%. I will continue the current nebulizer treatments and low-dose intravenous steroids (decreased yesterday) for now. The patient also remains on antibiotic therapy - as per Infectious Disease. Input by Dr. Colón is noted. Clinical status of the patient is significantly improved - compared to his initial presentation. However, despite his clinical improvement, the patient is still very weak and dyspneic with ambulation. His overall status remains very poor. I do feel that a stay in the Transitional Unit - for physical therapy and increased strengthening - would certainly benefit this patient prior to going home. Again, unfortunately, his long-term prognosis remains very poor. I will discuss the above with the attending physician. Kwadwo Navarro MD [facility]
[2018-06-26] MEDS: Insulin Lispro (humaLOG) LOW Coverage SC SCH ×4 (07:54→22:28)
[2018-06-26] MEDS: Pantoprazole 40 mg EC Tab PO SCH (07:55)
[2018-06-26] MEDS: Calcium-Vit D 250 mg-125 Units Tab UD PO SCH (09:13)
[2018-06-26] MEDS: MethylPREDNISolone 40 mg Vial IVP SCH ×2 (09:13→21:47)
[2018-06-26] MEDS: levoFLOXacin 500 MG TAB PO SCH (09:13)
[2018-06-26] MEDS: Magnesium Oxide 400 mg Tab UD PO SCH ×2 (09:13→17:48)
--- NOTE | 2018-06-26 13:23 | PN ---
DATE: 06/26/2018 SUBJECTIVE: A 68-year-old white male admitted to the hospital with pneumonia. 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 Patient was treated for pneumonia in the hospital. He is doing well. Vital signs are stable. He is afebrile. He is using 5 L of oxygen per minute. He does have an elevated BUN and creatinine at 45 and 1.1, however, stable. His lungs are clear. He is less coughing. He is less short of breath. He is doing some physical therapy and occupational therapy. He is planning on being discharged most likely in the next 24 hours for his treatment of his lung cancer. Steve Varela MD
[2018-06-26] MEDS: Oxycodone/Acetaminophen 5/325 mg Tab PO PRN (14:11)
[2018-06-26] MEDS: Efavirenz/Emtricitabine/Teno 1 TAB PO SCH (22:03)
[2018-06-27] MEDS: Albuterol-Ipratrop 3 mg / 0.5 (3 ml) UD IH SCH ×3 (01:42→13:51)
--- NOTE | 2018-06-27 03:16 | PN ---
DATE: 06/26/2018 SUBJECTIVE: The patient is in bed, in no acute distress, nontoxic. PHYSICAL EXAMINATION: VITAL SIGNS: Temperature is 98, blood pressure is 120/80, respiratory rate of 18, heart rate of 104. HEENT: Unremarkable. NECK: Supple. LUNGS: Have decreased breath sounds. HEART: Normal S1, S2. ABDOMEN: Soft. LABORATORY EXAMINATION: Reveals the white count of 9.7, hemoglobin of 14. BUN of 45, creatinine of 1.1. Procalcitonin is noted. CD4 is reviewed. Serology is reviewed. Review of medication reveals the patient to be on Atripla, which is the combination of efavirenz, emtricitabine and tenofovir. Patient is also on p.o. Levaquin. Dr. Varela's note is reviewed. Dr. Navarro's note is reviewed. ASSESSMENT AND PLAN: This is a 68-year-old male who is admitted with severe sepsis, acute hypoxic respiratory failure, right lower lobe healthcare-associated pneumonia, human immunodeficiency virus, metastatic lung cancer, lung resection, newly discovered right lung mass and has received meropenem, now on p.o. Levaquin to complete 5 days as ordered. Case discussed with Dr. Varela. Patient will follow up with primary human immunodeficiency virus animation director. I had a discussion with the patient regarding Atripla and use of a new agent human immunodeficiency virus medication. We will discuss it with his primary human immunodeficiency virus animation director. Chris Colón MD
[2018-06-27 06:36] VITALS: O2SAT 98
[2018-06-27] MEDS: Insulin Lispro (humaLOG) LOW Coverage SC SCH ×4 (08:15→17:55)
[2018-06-27] MEDS: Pantoprazole 40 mg EC Tab PO SCH (08:17)
--- NOTE | 2018-06-27 08:24 | PN ---
DATE: 06/27/2018 PULMONARY NOTE SUBJECTIVE: The patient appears comfortable this morning. He is not short of breath at rest. PHYSICAL EXAMINATION: VITAL SIGNS: Temperature is 98.7, pulse 81, respirations 19, blood pressure 118/68. Oxygen saturation on nasal cannula is 98%. HEENT: Normocephalic, atraumatic. No JVD. CARDIOVASCULAR: Positive S1, S2. No S3 gallop. LUNGS: Minimal rhonchi - right lung. No wheezing. Decreased breath sounds - left lung. EXTREMITIES: No clubbing, cyanosis or edema. Calves are nontender to palpation. GI: Abdomen is soft, nontender and nondistended. Bowel sounds are positive. SKIN: No acute rash. NEUROLOGIC: Limited at the present time. IMPRESSION: 1. Acute hypoxemic respiratory failure. 2. Right lower lobe pneumonia. 3. Advanced lung cancer. 4. Advanced chronic obstructive pulmonary disease. 5. Mild bronchospasm. PLAN: The patient appears comfortable this morning. He is not short of breath at rest. He does state to feeling much better overall. I did discuss the case with the night nurse at length. The night nurse stated that the patient had a good night. In addition, I did discuss the patient's ambulation (yesterday) with the nurse at length. Apparently, he did ambulate around the lackey. However, at the end of his walk, he was significantly dyspneic. He was also noted to be very weak. On physical exam, his bronchospasm continues to resolve. In addition, the alveolar arterial gradient also continues to resolve. I will continue the current nebulizer treatments and low-dose intravenous steroids for now. The patient also remains on antibiotic therapy - as per Infectious Disease. Input by Dr. Colón is noted. Clinical status of the patient is significantly improved - compared to the initial presentation. Unfortunately, his overall status/prognosis remains poor. As above, the patient does remain dyspneic on exertion and weak. Again, I do feel that a short stay in the Transitional Unit - for physical therapy and strengthening - would benefit this patient greatly. He is now agreeable for the transfer. I will discuss the above with the attending physician. Kwadwo Navarro MD [facility] # [id number] MT[facility]arl[facility]
[2018-06-27] MEDS: Calcium-Vit D 250 mg-125 Units Tab UD PO SCH (11:01)
[2018-06-27] MEDS: Magnesium Oxide 400 mg Tab UD PO SCH ×2 (11:01→17:52)
[2018-06-27] MEDS: levoFLOXacin 500 MG TAB PO SCH (11:02)
[2018-06-27] MEDS: MethylPREDNISolone 40 mg Vial IVP SCH (11:02)
[2018-06-27 11:09] LABS: BASO # 0.01 K/mm3 (0.0-2.0); BASO % 0.1 % (0.0-3.0); EOS # 0.1 (0.0-0.7); EOS % 0.7 % (1.5-5.0); GRAN # 9.73 (1.4-6.5); GRAN % 78.3 % (50.0-68.0); HEMOGLOBIN 14.3 g/dL (14.0-18.0); LYMPH # 1.5 (1.2-3.4); LYMPH % 12.1 % (22.0-35.0); MEAN CELL VOLUME 74.5 fl (80.0-105.0); MEAN CORPUSCULAR HEMOGLOBIN 23.1 pg (25.0-35.0); MEAN PLATELET VOLUME 10.7 fl (7.0-11.0); MONO # 1.1 (0.1-0.6); MONO % 8.8 % (1.0-6.0); RBC 6.2 10^6/uL (3.5-6.1); RED CELL DISTRIBUTION WIDTH 14.2 % (11.5-14.5); WHITE BLOOD COUNT 12.4 10^3/ul (4.5-11.0)
[2018-06-27 11:26] LABS: ALBUMIN 3.4 g/dL (3.0-4.8); ALT/SGPT 57 U/L (7-56); AST/SGOT 32 U/L (17-59); BLOOD UREA NITROGEN 31 mg/dL (7-21); CALCIUM 8.7 mg/dL (8.4-10.5); GFR NON-AFRICAN AMERICAN > 60
--- NOTE | 2018-06-27 14:47 | PN ---
DATE: 06/27/2018 SUBJECTIVE: A 68-year-old white male with lung CA, status post lobectomy, recurrent lung CA, mediastinal adenopathy, status post pneumonia, hypoxia, on high-flow oxygen. The patient is doing well. He was able to do some physical therapy yesterday, able to walk, and ambulate in the lackey with oxygen. Will be transferred to TCU for further rehabilitation. PHYSICAL EXAMINATION: CHEST: Shows it is clear except for there are no breath sounds in the left lung. HEART: S1 and S2, regular sinus with mild sinus tachycardia. VITAL SIGNS: Patient is afebrile today. Vital signs are stable. LABORATORY DATA: He does have an elevated BUN and creatinine at 45 and 1.1, which were repeated. He is status post fluid hydration. PLAN: Transfer to TCU [facility]. Steve Varela MD
[2018-06-27] MEDS: Oxycodone/Acetaminophen 5/325 mg Tab PO PRN (15:09)
[2018-06-27] MEDS ORDERED: Oxycodone/Acetaminophen 10/325 mg Tab PO PRN (16:51)
[2018-06-27 18:06] VITALS: BP 120/73; PULSE 99; RESP 19; TEMP 98.3
--- NOTE | 2018-06-28 01:16 | PN ---
DATE: 06/27/2018 SUBJECTIVE: The patient is in bed in no acute distress, nontoxic. PHYSICAL EXAMINATION: VITAL SIGNS: Temperature is 98, blood pressure is 120/70, respiratory rate of 18. HEENT: Examination of HEENT is unremarkable. NECK: Supple. LUNGS: Have decreased breath sounds. HEART: Normal S1, S2. ABDOMEN: Soft, nontender. LABORATORY EXAMINATION: Reveals a white count of 12,400 and hemoglobin of 14. Chemistries are noted. ASSESSMENT AND PLAN: A 68-year-old male admitted with severe sepsis and acute hypoxic respiratory failure, right lower lobe healthcare-associated pneumonia, human immunodeficiency virus, metastatic lung cancer, lung resection, newly discovered right lung mass and has received meropenem p.o., on p.o. Levaquin at this point and I have discussed with the patient regarding the use of Atripla. We will discuss it with his primary shuttlecock feather trimmer. Chris Colón MD
--- NOTE | 2018-06-28 17:44 | DS ---
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 The patient also had pneumonia and hypoxia. The patient was discharged from [facility] after treatment for pneumonia and bronchospasm and hypoxia. He was discharged to TCU to continue physical therapy and occupational therapy before being discharged home. FINAL DISCHARGE DIAGNOSES: Recurrent lung cancer, history of lung cancer with lobectomy and history of being human immunodeficiency virus positive. Steve Varela MD
== END 2018-06-27 18:39 | DRG 974 ==
LOC: ED 06:53 → ERH 08:36 → CCU 12:19 → 2RNO 06-20 00:58
PROVIDERS: ADMIT Internal Medicine; ATTEND Internal Medicine
PROC: 5A09357 Assistance with Respiratory Ventilation, Less than 24 Consecutive Hours, Continuous Positive Airway Pressure (ICD-10-PCS; principal; 2018-06-18)
DX: A41.9 Sepsis, unspecified organism (principal); J96.01 Acute respiratory failure with hypoxia; B20 Human immunodeficiency virus [HIV] disease; J18.9 Pneumonia, unspecified organism; J44.1 Chronic obstructive pulmonary disease with (acute) exacerbation; C34.31 Malignant neoplasm of lower lobe, right bronchus or lung; C78.1 Secondary malignant neoplasm of mediastinum; C77.1 Secondary and unspecified malignant neoplasm of intrathoracic lymph nodes; R65.20 Severe sepsis without septic shock; I11.0 Hypertensive heart disease with heart failure; I50.9 Heart failure, unspecified; E11.9 Type 2 diabetes mellitus without complications; Z66 Do not resuscitate; E87.6 Hypokalemia; Z79.84 Long term (current) use of oral hypoglycemic drugs; Z87.891 Personal history of nicotine dependence; Z99.81 Dependence on supplemental oxygen; Z90.2 Acquired absence of lung [part of]

== ENCOUNTER 2018-06-27 18:25 | Inpatient (IN) | payer MEDICARE ==
[2018-06-27] MEDS ORDERED: Oxycodone/Acetaminophen 5/325 mg Tab PO SCH (20:00)
[2018-06-27] MEDS ORDERED: Albuterol-Ipratrop 3 mg / 0.5 (3 ml) UD IH PRN (20:33)
[2018-06-27] MEDS: Albuterol-Ipratrop 3 mg / 0.5 (3 ml) UD IH SCH (20:59)
[2018-06-27 21:01] VITALS: BMI 22.5
[2018-06-27] MEDS: Insulin Lispro (humaLOG) LOW Coverage SC SCH (21:32)
[2018-06-27] MEDS ORDERED: MethylPREDNISolone 40 mg Vial IVP SCH (22:00)
[2018-06-27] MEDS: Oxycodone/Acetaminophen 5/325 mg Tab PO PRN (22:44)
[2018-06-27] MEDS ORDERED: Efavirenz/Emtricitabine/Teno 1 TAB PO SCH (22:47)
[2018-06-28] MEDS: Albuterol-Ipratrop 3 mg / 0.5 (3 ml) UD IH SCH ×4 (02:47→19:24)
[2018-06-28] MEDS: Pantoprazole 40 mg EC Tab PO SCH (05:15)
[2018-06-28] MEDS: Insulin Lispro (humaLOG) LOW Coverage SC SCH ×4 (06:36→22:27)
[2018-06-28] MEDS ORDERED: Pantoprazole 40 mg EC Tab PO SCH (07:30)
--- NOTE | 2018-06-28 07:53 | PN ---
DATE: 06/28/2018 PULMONARY NOTE SUBJECTIVE: The patient appears comfortable this morning. He is not short of breath at rest. PHYSICAL EXAMINATION: VITAL SIGNS: Temperature is 97.9, pulse 83, respirations 16, blood pressure 126/75. Oxygen saturation on nasal cannula is 97%. HEENT: Normocephalic, atraumatic. No JVD. CARDIOVASCULAR: Positive S1, S2. No S3 gallop. LUNGS: Very minimal/less rhonchi - right lung. No wheezing. Decreased breath sounds - left lung. EXTREMITIES: No clubbing, cyanosis, or edema. Calves are nontender to palpation. GASTROINTESTINAL: Abdomen is soft, nontender, and nondistended. Bowel sounds are positive. SKIN: No acute rash. NEUROLOGIC: Limited at the present time. IMPRESSION: 1. Acute hypoxemic respiratory failure. 2. Right lower lobe pneumonia. 3. Advanced lung cancer. 4. Advanced chronic obstructive pulmonary disease. 5. Mild bronchospasm. PLAN: The patient appears comfortable this morning. He is not short of breath at rest. He does state to feeling much better overall. I did discuss the case with night nurse at length. The night nurse stated that the patient had a good night. On physical exam, his bronchospasm continues to slowly resolve. In addition, the alveolar-arterial gradient also continues to resolve. I will continue with the current nebulizer treatments and change to oral steroids this morning. The patient remains on antibiotic therapy - as per Infectious Disease. Input by Dr. Colón is noted. Clinical status of the patient is certainly improved - compared to his initial presentation. However, again, unfortunately, the future status/prognosis for this patient remains poor. All are aware. The patient is now on the Transitional Unit - where he will participate with physical therapy. I will discuss the above with Dr. Varela. Kwadwo Navarro MD MTDD
[2018-06-28] MEDS ORDERED: Efavirenz/Emtricitabine/Teno 1 TAB PO SCH ×2 (10:00→22:00)
[2018-06-28] MEDS: levoFLOXacin 500 MG TAB PO SCH (10:01)
[2018-06-28] MEDS: Magnesium Oxide 400 mg Tab UD PO SCH ×2 (10:01→17:14)
[2018-06-28] MEDS: Calcium-Vit D 250 mg-125 Units Tab UD PO SCH (10:02)
[2018-06-28] MEDS: Oxycodone/Acetaminophen 5/325 mg Tab PO PRN ×2 (13:58→22:36)
--- NOTE | 2018-06-28 16:41 | HP ---
HISTORY OF PRESENT ILLNESS: A 68-year-old white male admitted from [facility] TCU. The patient has a history of being HIV positive. He has a DNR/DNI. He has a history of lung cancer in the left lung, treated with lobectomy. 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 The patient was recently treated for pneumonia and bronchospasm hypoxia. He is on oxygen, doing well. Will be doing physical therapy and occupational therapy and I will continue his HIV meds and then he will be followed by Dr. Kinney for chemotherapy as an outpatient. PHYSICAL EXAMINATION: GENERAL: Shows a well-developed, but thin white male in mild respiratory distress, using continuous nasal oxygen. CHEST: Clear in the right thorax. There are no breath sounds in the left thorax. HEART: Regular sinus rhythm, but mild sinus tachycardia. VITAL SIGNS: Stable. Temperature is 97.9, pulse is 83, and blood pressure is 126/75. ABDOMEN: Thin, but benign. EXTREMITIES: Without cyanosis, clubbing, or edema. NEUROLOGIC: Grossly intact. The patient is awake, alert and oriented x3. Steve Varela MD
[2018-06-28] MEDS: Efavirenz/Emtricitabine/Teno 1 TAB PO SCH (21:47)
[2018-06-29] MEDS: Albuterol-Ipratrop 3 mg / 0.5 (3 ml) UD IH SCH ×4 (01:23→19:36)
--- NOTE | 2018-06-29 03:25 | CON ---
DATE: 06/28/2018 The patient is in seen in room 303. CHIEF COMPLAINT: Weakness. HISTORY OF PRESENT ILLNESS This is a 68-year-old male with past medical history significant for positive HIV, metastatic lung cancer and hypertension who was admitted with pulmonary symptoms and breathing was given antibiotics in the acute care, now transferred to the transitional care, and the patient states that his shortness of breath is improved. No nausea, no vomiting or chest pain, no abdominal pain, diarrhea or constipation. PAST MEDICAL HISTORY: Significant for positive HIV, acute hypoxic respiratory failure and metastatic lung cancer and newly discovered new lung mass and was treated with meropenem and now transferred and currently on Levaquin. PAST SURGERIES: Significant for pneumonectomy. ALLERGIES: THE PATIENT HAS NO KNOWN ALLERGIES. MEDICATIONS: For her HIV includes Atripla. He sees a nurse practitioner for his HIV care. PHYSICAL EXAMINATION: The patient is in bed with a temperature of 97 and blood pressure is 140/80, respiratory rate of 18. Examination of HEENT is unremarkable. NECK: Supple. LUNGS: Have decreased breath sounds. HEART: Normal S1, S2. Abdomen: Examination is soft, nontender. LABORATORY: Reveals a white count of 12,400 and BUN of 31, creatinine of 0.9, and procalcitonin is less than 0.05 and immunology is noted. The patient's T-cells is 27% at 318, and his HIV PCR is 1.36 log. ASSESSMENT AND PLAN: This is a 68 year old with severe sepsis, acute hypoxic respiratory failure with a right lower lobe healthcare-associated pneumonia. The patient had positive HIV and metastatic lung cancer, currently now on p.o. Levaquin and Dr. Navarro's note from today is reviewed. We will complete the p.o. Levaquin therapy. He is to continue his HIV medication of efavirenz and emtricitabine, tenofovir and on Levaquin p.o. We will follow closely with you. Chris Colón MD [facility] # [id number]
[2018-06-29] MEDS: Pantoprazole 40 mg EC Tab PO SCH (05:58)
[2018-06-29] MEDS: Insulin Lispro (humaLOG) LOW Coverage SC SCH ×4 (07:02→22:04)
--- NOTE | 2018-06-29 07:23 | PN ---
DATE: 06/29/2018 PULMONARY NOTE SUBJECTIVE: The patient appears comfortable this morning. He is not short of breath at rest. PHYSICAL EXAMINATION: VITAL SIGNS: Last temperature recorded is 97.5, pulse this morning is approximately 90, respiratory rate 18-20, blood pressure 117/78. Oxygen saturation on nasal cannula is 95%-97%. HEENT: Normocephalic, atraumatic. No JVD. CARDIOVASCULAR: Positive S1, S2. No S3 gallop. LUNGS: Minimal/less rhonchi - right lung. No wheezing. Decreased breath sounds - left lung. EXTREMITIES: No clubbing, cyanosis, or edema. Calves are nontender to palpation. GASTROINTESTINAL: Abdomen is soft, nontender, and nondistended. Bowel sounds are positive. SKIN: No acute rash. NEUROLOGIC: Limited at the present time. IMPRESSION: 1. Acute hypoxemic respiratory failure. 2. Right lower lobe pneumonia. 3. Advanced lung cancer. 4. Advanced chronic obstructive pulmonary disease. 5. Mild bronchospasm. PLAN: The patient appears comfortable this morning. He is not short of breath at rest. He does state to feeling much better overall. On physical exam, there is certainly less bronchospasm noted. In addition, the alveolar-arterial gradient is also much less. I will continue with the current nebulizer treatments and oral steroids (changed yesterday) for now. The patient remains on antibiotic therapy as per Infectious Disease. Input by Dr. Colón is noted. Clinical status of the patient is significantly improved - compared to the initial presentation. However, again, unfortunately, the overall status/prognosis for this patient remains poor. The patient appears to be doing well on the Transitional Unit, and is trying his best. I will discuss the above with the attending physician. Kwadwo Navarro MD MTDD
[2018-06-29] MEDS: Magnesium Oxide 400 mg Tab UD PO SCH ×2 (09:58→17:20)
[2018-06-29] MEDS: levoFLOXacin 500 MG TAB PO SCH (09:58)
[2018-06-29] MEDS: Calcium-Vit D 250 mg-125 Units Tab UD PO SCH (09:58)
--- NOTE | 2018-06-29 10:13 | PN ---
DATE: 06/29/2018 A 68-year-old white male with HIV positive; lung CA, recurrent in contralateral lung; mediastinal adenopathy; COPD. The patient is doing well, on tapering dose of steroids, bronchodilators, finishing up a course of antibiotics. Doing physical therapy and occupational therapy. The patient is in TCU. He is more active with supplemental oxygen. He does not need high-dose oxygen anymore. The patient is to continue physical therapy and occupational therapy and eventually be discharged home to start chemotherapy. Steve Varela MD
[2018-06-29] MEDS: Oxycodone/Acetaminophen 5/325 mg Tab PO PRN ×2 (15:14→22:31)
[2018-06-29] MEDS: Efavirenz/Emtricitabine/Teno 1 TAB PO SCH (21:40)
--- NOTE | 2018-06-29 23:14 | PN ---
DATE: 06/29/2018 SUBJECTIVE: Patient is in bed in no acute distress, nontoxic. PHYSICAL EXAMINATION: VITAL SIGNS: On exam, temperature is 98, blood pressure is 120/70, respiratory rate of 18. HEENT: Examination of HEENT is unremarkable. NECK: Supple. LUNGS: Have decreased breath sounds. HEART: Normal S1 and S2. ABDOMEN: Soft, nontender. LABORATORY EXAMINATION: Reveals the patient has chemistries, glucose is noted. MEDICATIONS: Review of orders reveals the patient to be on efavirenz, emtricitabine, tenofovir. Patient is also on p.o. Levaquin. ASSESSMENT AND PLAN: A 68-year-old male who has past medical history significant for human immunodeficiency virus positive and metastatic lung cancer and hypertension, and severe sepsis and acute hypoxic respiratory failure, right lower lobe healthcare-associated pneumonia, currently on his HIV medication and Levaquin. Dr. Navarro's note is appreciated. Dr. Varela's note is reviewed. Chris Colón MD
[2018-06-30] MEDS: Albuterol-Ipratrop 3 mg / 0.5 (3 ml) UD IH SCH ×4 (02:00→20:13)
[2018-06-30] MEDS: Pantoprazole 40 mg EC Tab PO SCH (05:40)
[2018-06-30] MEDS: Insulin Lispro (humaLOG) LOW Coverage SC SCH ×4 (06:43→22:02)
[2018-06-30 07:50] LABS: ALB/GLOB RATIO 0.9 (1.1-1.8); ALBUMIN 3.1 g/dL (3.0-4.8); ALT/SGPT 52 U/L (7-56); AST/SGOT 32 U/L (17-59); BLOOD UREA NITROGEN 38 mg/dL (7-21); CALCIUM 9.2 mg/dL (8.4-10.5); GFR NON-AFRICAN AMERICAN > 60
[2018-06-30 07:53] LABS: BASO # 0.01 K/mm3 (0.0-2.0); BASO % 0.1 % (0.0-3.0); EOS # 0.1 (0.0-0.7); EOS % 0.7 % (1.5-5.0); GRAN # 7.91 (1.4-6.5); GRAN % 74.2 % (50.0-68.0); HEMOGLOBIN 13.5 g/dL (14.0-18.0); LYMPH # 1.8 (1.2-3.4); LYMPH % 17.1 % (22.0-35.0); MEAN CELL VOLUME 74.7 fl (80.0-105.0); MEAN CORPUSCULAR HEMOGLOBIN 22.7 pg (25.0-35.0); MEAN CORPUSCULAR HGB CONC 30.4 g/dl (31.0-37.0); MEAN PLATELET VOLUME 10.6 fl (7.0-11.0); MONO # 0.8 (0.1-0.6); MONO % 7.9 % (1.0-6.0); RBC 5.94 10^6/uL (3.5-6.1); RED CELL DISTRIBUTION WIDTH 14.1 % (11.5-14.5); WHITE BLOOD COUNT 10.7 10^3/ul (4.5-11.0)
[2018-06-30] MEDS: Calcium-Vit D 250 mg-125 Units Tab UD PO SCH (09:07)
[2018-06-30] MEDS: levoFLOXacin 500 MG TAB PO SCH (09:07)
[2018-06-30] MEDS: Magnesium Oxide 400 mg Tab UD PO SCH ×2 (09:07→17:33)
--- NOTE | 2018-06-30 14:09 | PN ---
DATE: 06/30/2018 PULMONARY PROGRESS NOTE SUBJECTIVE: The patient was seen and examined in Transitional Care Unit. He states he is still short of breath, although overall feels a little better. He is getting inhalation therapy with DuoNeb and he is on oral Levaquin as well as oral prednisone at 40 mg a day. PHYSICAL EXAMINATION: HEENT: Examination of head, ears, nose and throat is within normal limits. VITAL SIGNS: His temperature is 98, pulse 80, respirations 20, pulse oximetry is 100 on nasal cannula. NECK: Supple with no jugular vein distentions. CARDIOVASCULAR: S1, S2. No S3. Regular. PULMONARY: Diminished breath sounds at both bases with scattered wheezing. GASTROINTESTINAL: Soft, nontender. No organomegaly. EXTREMITIES: No pedal edema. NEUROLOGIC: No focal deficits. SKIN: No acute skin rashes. LABORATORY DATA: I reviewed today's lab work. His WBCs 10.7, hemoglobin of 13.5. Chemistries are normal. ASSESSMENT: 1. Exacerbation of severe chronic obstructive pulmonary disease. 2. Chronic respiratory failure. 3. Resolving right lower lobe pneumonia. 4. Advanced lung cancer. PLAN: The patient appears more comfortable this morning. He is not short of breath at rest. His oxygen saturation is 100 on nasal cannula. I would maintain him on current doses, which are moderate doses of oral prednisone. Continue nebulizer treatment and attempt to mobilize with therapy. Sandoval Del Real MD
[2018-06-30] MEDS: Oxycodone/Acetaminophen 5/325 mg Tab PO PRN (18:56)
[2018-06-30] MEDS ORDERED: Pantoprazole 40 mg EC Tab PO STA (20:16)
--- NOTE | 2018-06-30 20:22 | PN ---
DATE: 06/30/2018 SUBJECTIVE: The patient is in bed, in no acute distress, nontoxic. PHYSICAL EXAMINATION: VITAL SIGNS: Temperature is 97, blood pressure is 140/90, respiratory rate of 18. HEENT: Unremarkable. NECK: Supple. LUNGS: Decreased breath sounds. HEART: Normal S1, S2. ABDOMEN: Soft. LABORATORY EXAMINATION: Reveals a white count of 10,000, hemoglobin of 13, and platelets of 200. BUN of 38, creatinine of 0.9. ASSESSMENT AND PLAN: A 68-year-old male with past medical history of positive human immunodeficiency virus, metastatic lung cancer with hypertension and severe sepsis, acute hypoxic respiratory failure, right lower lobe healthcare-associated pneumonia. On human immunodeficiency virus medication also on Levaquin. Review of the orders reveals the patient to be on Levaquin. We will continue a total of 5 days. Chris Colón MD
[2018-06-30] MEDS: Efavirenz/Emtricitabine/Teno 1 TAB PO SCH (21:13)
[2018-07-01] MEDS: Oxycodone/Acetaminophen 5/325 mg Tab PO PRN ×3 (00:13→22:47)
[2018-07-01] MEDS: Albuterol-Ipratrop 3 mg / 0.5 (3 ml) UD IH SCH ×4 (01:40→20:09)
[2018-07-01] MEDS: Pantoprazole 40 mg EC Tab PO SCH (05:48)
[2018-07-01] MEDS: Insulin Lispro (humaLOG) LOW Coverage SC SCH ×4 (06:31→22:12)
[2018-07-01] MEDS: Calcium-Vit D 250 mg-125 Units Tab UD PO SCH (09:08)
[2018-07-01] MEDS: levoFLOXacin 500 MG TAB PO SCH (09:08)
[2018-07-01] MEDS: Magnesium Oxide 400 mg Tab UD PO SCH ×2 (09:08→17:24)
[2018-07-01 16:33] VITALS: RESP 20
--- NOTE | 2018-07-01 18:54 | PN ---
DATE: 07/01/2018 SUBJECTIVE: The patient is seen earlier today, in no acute distress. He is doing well. He is much improved. PHYSICAL EXAMINATION: VITAL SIGNS: Temperature is 98, blood pressure is 120/70, respiratory rate of 16. HEENT: Unremarkable. NECK: Supple. LUNGS: Have decreased breath sounds. HEART: Normal S1, S2. ABDOMINAL: Soft, nontender. LABORATORY EXAMINATION: Reveals the patient's white count to be 10,000, hemoglobin of 13, platelets of 200. BUN of 38, creatinine of 0.9. MEDICATIONS: Review of medications reveals the patient is on p.o. Levaquin. ASSESSMENT AND PLAN: A 68-year-old male with past medical history of human immunodeficiency virus, metastatic lung cancer, hypertension, severe sepsis, acute hypoxic respiratory failure, right lower lobe healthcare-associated pneumonia currently on Levaquin. The patient has had adequate Levaquin therapy. The patient received 7 days of Zithromax and meropenem. We will discontinue Levaquin. No further antibiotics is necessary. He has had over 6 days of Levaquin. Chris Colón MD
[2018-07-01] MEDS: Efavirenz/Emtricitabine/Teno 1 TAB PO SCH (21:44)
[2018-07-02] MEDS: Albuterol-Ipratrop 3 mg / 0.5 (3 ml) UD IH SCH ×4 (01:31→21:19)
[2018-07-02] MEDS: Pantoprazole 40 mg EC Tab PO SCH (06:07)
[2018-07-02] MEDS: Insulin Lispro (humaLOG) LOW Coverage SC SCH ×4 (06:34→22:13)
--- NOTE | 2018-07-02 07:25 | PN ---
DATE: 07/02/2018 PULMONARY NOTE SUBJECTIVE: The patient appears comfortable this morning. He is not short of breath at rest. PHYSICAL EXAMINATION: VITAL SIGNS: Temperature is 98.1, pulse this morning is 88, respiratory rate 18/20, blood pressure 129/81. Oxygen saturation on nasal cannula is 94%. HEENT: Normocephalic, atraumatic. No JVD. CARDIOVASCULAR: Positive S1, S2. No S3 gallop. LUNGS: Very minimal/less rhonchi - right lung. No wheezing. Decreased breath sounds - left lung. EXTREMITIES: No clubbing, cyanosis or edema. Calves are nontender to palpation. GI: Abdomen is soft, nontender and nondistended. Bowel sounds are positive. SKIN: No acute rash. NEUROLOGIC: Limited at the present time. IMPRESSION: 1. Acute hypoxemic respiratory failure. 2. Right lower lobe pneumonia. 3. Advanced lung cancer. 4. Advanced chronic obstructive pulmonary disease. 5. Mild bronchospasm. PLAN: The patient appears comfortable this morning. He is not short of breath at rest. He does state to feeling much better overall. On physical exam, his bronchospasm continues to slowly resolve. In addition, the alveolar-arterial gradient is also much less. I will continue with the current nebulizer treatments and decrease the oral steroids this morning. The patient is now off antibiotic therapy - as per Infectious Disease. Input by Dr. Colón is noted. There are no temperatures noted. The leukocytosis has resolved. Clinical status of the patient is significantly improved - compared to the initial presentation. However, unfortunately, the future status/prognosis for this patient does remain poor. All are aware. I will discuss the above with the attending physician. Kwadwo Navarro MD TEZ
--- NOTE | 2018-07-02 08:49 | PN ---
DATE: 07/01/2018 SUBJECTIVE: A 68-year-old white male with history of lobectomy for lung CA, recurrent lung CA in the contralateral lung, mediastinal adenopathy, pneumonia, hypoxia. The patient is doing better, doing physical therapy with and without oxygen, does desaturated and gets tachypneic and tachycardic with long periods of walking without oxygen, but he is also complaining of some mild heartburn, appetite is stable. PHYSICAL EXAMINATION: GENERAL: The patient is awake, alert and oriented x3. VITAL SIGNS: He is afebrile, vital signs are stable. CHEST: Shows decreased breath sounds left, normal breath sounds right. No adenopathy noted on lung examination. HEART: Regular sinus rhythm. LABORATORY DATA: Unremarkable except for an elevated BUN and creatinine of 38 and 0.9. PLAN: Otherwise, the patient is doing physical therapy and occupational therapy and we will eventually start chemotherapy as an outpatient. Steve Varela MD
[2018-07-02] MEDS: Calcium-Vit D 250 mg-125 Units Tab UD PO SCH (10:51)
[2018-07-02] MEDS: Magnesium Oxide 400 mg Tab UD PO SCH ×2 (10:51→17:11)
[2018-07-02] MEDS: Oxycodone/Acetaminophen 5/325 mg Tab PO PRN ×2 (12:36→22:00)
--- NOTE | 2018-07-02 14:12 | PN ---
DATE: 07/02/2018 SUBJECTIVE: A 68-year-old white male with history of lung CA. He is status post left pneumonectomy for recurrent lung CA in the right lung, status post pneumonia. The patient is doing well, doing physical therapy, he is in TCU. PHYSICAL EXAMINATION: VITAL SIGNS: Stable. His temperature is 98.1. He is finishing course of antibiotics. He is also on steroids, bronchodilators. His BUN and creatinine are stable at 38 and 0.9, and potassium is 4.1. The patient is tolerating his therapy. Once done, continue his oxygen and using supplemental oxygen when he walks. He will be discharged home in next several days to follow up with Dr. Rojas for his treatment of his lung cancer. Steve Varela MD
--- NOTE | 2018-07-02 21:46 | PN ---
DATE: 07/02/2018 SUBJECTIVE: The patient is in bed, in no acute distress, nontoxic. PHYSICAL EXAMINATION: VITAL SIGNS: Temperature is 98, blood pressure is 109/70, respiratory rate of 18. HEENT: Unremarkable. NECK: Supple. LUNGS: Have decreased breath sounds. HEART: Normal S1, S2. ABDOMEN: Soft, nontender. LABORATORY EXAMINATION: Reveals a white count of 10,700, hemoglobin of 13, platelets of 200. Chemistries reveal a BUN of 38, creatinine of 0.9. Microbiology is noted. ASSESSMENT AND PLAN: A 68-year-old male with positive human immunodeficiency virus, metastatic lung cancer, hypertension, severe sepsis, acute hypoxic respiratory failure, right lower lobe Healthcare-associated pneumonia, currently on Levaquin and completed Levaquin therapy. Currently, the patient is off of antibiotics. I discussed with him about the use of and possible options. He states that he will ask his human immunodeficiency virus provider to call me. Chris Colón MD
[2018-07-02] MEDS: Efavirenz/Emtricitabine/Teno 1 TAB PO SCH (22:00)
[2018-07-03] MEDS: Albuterol-Ipratrop 3 mg / 0.5 (3 ml) UD IH SCH ×4 (02:17→20:47)
[2018-07-03] MEDS: Pantoprazole 40 mg EC Tab PO SCH (05:51)
[2018-07-03] MEDS: Insulin Lispro (humaLOG) LOW Coverage SC SCH ×4 (06:37→21:51)
--- NOTE | 2018-07-03 07:50 | PN ---
DATE: 07/03/2018 PULMONARY NOTE SUBJECTIVE: The patient appears comfortable this morning. He is not short of breath at rest. PHYSICAL EXAMINATION: VITAL SIGNS: (Last noted in the computer): Temperature is 97.8, pulse 99, respirations 18, blood pressure 109/76. Oxygen saturation on nasal cannula is 96%. HEENT: Normocephalic, atraumatic. No JVD. CARDIOVASCULAR: Positive S1, S2. No S3 gallop. LUNGS: Very minimal/less rhonchi- right lung. No wheezing. Decreased breath sounds, left lung. EXTREMITIES: No clubbing, cyanosis, or edema. Calves are nontender to palpation. GASTROINTESTINAL: Abdomen is soft, nontender, and nondistended. Bowel sounds are positive. SKIN: No acute rash. NEUROLOGIC: Limited at the present time. IMPRESSION: 1. Acute hypoxemic respiratory failure. 2. Right lower lobe pneumonia. 3. Advanced lung cancer. 4. Advanced chronic obstructive pulmonary disease. 5. Mild bronchospasm. PLAN: The patient appears comfortable this morning. He is not short of breath at rest. He does state to feeling much, much better overall. On physical exam, his bronchospasm continues to resolve. In addition, the alveolar-arterial gradient also continues to resolve. I will continue with the current nebulizer treatments and oral steroids (decreased yesterday) for now. The patient remains off antibiotic therapy. There are no temperatures noted. There is no leukocytosis. Clinical status of the patient is significantly improved - compared to the initial presentation. However, unfortunately, the future status/prognosis for this patient remains poor. I will discuss the above with the attending physician. Kwadwo Navarro MD MTDD
[2018-07-03] MEDS: Calcium-Vit D 250 mg-125 Units Tab UD PO SCH (10:24)
[2018-07-03] MEDS: Magnesium Oxide 400 mg Tab UD PO SCH ×2 (10:24→17:21)
[2018-07-03] MEDS: Oxycodone/Acetaminophen 5/325 mg Tab PO PRN (10:38)
--- NOTE | 2018-07-03 10:49 | PN ---
DATE: 07/03/2018 SUBJECTIVE: The patient is in bed, in no acute distress, nontoxic. PHYSICAL EXAMINATION: VITAL SIGNS: On exam, temperature is 98, blood pressure is 109/70, respiratory rate of 20. HEENT: Examination of HEENT is unremarkable. NECK: Supple. LUNGS: Have decreased breath sounds. HEART: Normal S1, S2. ABDOMEN: Soft, nontender. LABORATORY DATA: Laboratory examination reveals a white count of 10,000, hemoglobin of 13, platelets of 200. Chemistries are noted. Microbiology is noted. ASSESSMENT AND PLAN: A 68-year-old with positive human immunodeficiency virus, metastatic lung cancer, hypertension, severe sepsis, acute hypoxic respiratory failure, right lower lobe healthcare-associated pneumonia. Completed the Levaquin therapy and currently off of antibiotics. The patient is at risk for developing nosocomial infections. Chris Colón MD
[2018-07-03] MEDS ORDERED: Oxycodone/Acetaminophen 5/325 mg Tab PO STA (21:15)
[2018-07-04] MEDS: Albuterol-Ipratrop 3 mg / 0.5 (3 ml) UD IH SCH ×3 (01:56→13:06)
[2018-07-04] MEDS: Pantoprazole 40 mg EC Tab PO SCH (06:04)
[2018-07-04] MEDS: Insulin Lispro (humaLOG) LOW Coverage SC SCH (06:30)
--- NOTE | 2018-07-04 07:18 | PN ---
DATE: 07/04/2018 PULMONARY NOTE SUBJECTIVE: The patient appears very comfortable this morning. He is not short of breath at rest. PHYSICAL EXAMINATION: VITAL SIGNS: Temperature is 98.1, pulse 88, respirations 18-20, blood pressure 121/78. Oxygen saturation on nasal cannula is 99%. HEENT: Normocephalic, atraumatic. No JVD. CARDIOVASCULAR: Positive S1, S2. No S3 gallop. LUNGS: Right lung is now clear. No wheezing. No rhonchi. Decreased breath sounds - left lung. EXTREMITIES: No clubbing, cyanosis, or edema. Calves are nontender to palpation. GASTROINTESTINAL: Abdomen is soft, nontender, and nondistended. Bowel sounds are positive. SKIN: No acute rash. NEUROLOGIC: Limited at the present time. IMPRESSION: 1. Acute hypoxemic respiratory failure. 2. Right lower lobe pneumonia. 3. Advanced lung cancer. 4. Advanced chronic obstructive pulmonary disease. 5. Mild bronchospasm-resolved. PLAN: The patient appears very comfortable this morning. He is not short of breath at rest. He does state to feeling much, much better overall. On physical exam, his bronchospasm has resolved. In addition, the alveolar-arterial gradient also has resolved. I will continue with the current nebulizer treatments and oral steroids for now. The patient remains off antibiotic therapy. There are no temperatures noted. There is no leukocytosis. Clinical status of the patient is significantly improved - compared to his initial presentation. However, again, unfortunately, the overall/future status for this patient does remain poor. All are aware. The patient is for discharge in the near future. I will discuss the above with the attending physician. Kwadwo Navarro MD TEZ
--- NOTE | 2018-07-04 09:34 | PN ---
DATE: 07/04/2018 SUBJECTIVE: The patient is in bed, in no acute distress, nontoxic. PHYSICAL EXAMINATION: VITAL SIGNS: On exam, temperature is 98, blood pressure is 120/70, respiratory rate of 20. HEENT: Examination of HEENT is unremarkable. NECK: Supple. LUNGS: Have decreased breath sounds. HEART: Normal S1 and S2. ABDOMEN: Soft, nontender. LABORATORY DATA: Laboratory examination is noted. ASSESSMENT AND PLAN: A 68-year-old with positive human immunodeficiency virus, metastatic lung cancer, hypertension, severe sepsis, acute hypoxic respiratory failure, right lower lobe healthcare-associated pneumonia, off of antibiotics at this time. We will follow with you. Chris Colón MD
[2018-07-04] MEDS: Calcium-Vit D 250 mg-125 Units Tab UD PO SCH (09:39)
[2018-07-04] MEDS: Magnesium Oxide 400 mg Tab UD PO SCH (09:39)
[2018-07-04 11:04] VITALS: BP 121/78; PULSE 88; TEMP 98.1; O2SAT 99
--- NOTE | 2018-07-05 05:02 | DS ---
HISTORY OF PRESENT ILLNESS: The patient was transferred to [facility] TCU. The patient did well with physical therapy and occupational therapy. He was able to use less supplemental oxygen while in the hospital. He has finished his course of antibiotics and prednisone. He did not receive any insulin while in the hospital, he is on coverage. The patient did well. He was able to be tapered off his antibiotics. He is on a small dose of prednisone which will be stopped. He has an appointment to see as an outpatient today. He will start his chemotherapy with for his squamous cell cancer of the lung. PHYSICAL EXAMINATION: GENERAL: The patient is awake, alert and oriented x3. CHEST: Has no breath sounds in the left and normal breath sounds in the right. HEART: Mild tachycardia. He is using the oxygen. ABDOMEN: Soft. EXTREMITIES: Without cyanosis, clubbing or edema. NEUROLOGIC: Grossly intact. IMPRESSION: The patient was discharged home in improved condition. FINAL DISCHARGE DIAGNOSES: Squamous cell cancer of the lung, pneumonia, chronic obstructive pulmonary disease, hypoxia and non-insulin independent diabetes mellitus. Steve Varela MD
== END 2018-07-04 14:11 | disposition home or self-care (01) | DRG 871 ==
LOC: TRCU 18:25
PROVIDERS: ADMIT Internal Medicine; ATTEND Internal Medicine
PROC: F07Z9FZ Gait Training/Functional Ambulation Treatment using Assistive, Adaptive, Supportive or Protective Equipment (ICD-10-PCS; principal; 2018-06-28)
PROC: F07M6ZZ Therapeutic Exercise Treatment of Musculoskeletal System - Whole Body (ICD-10-PCS; 2018-06-28)
PROC: F08Z1ZZ Dressing Techniques Treatment (ICD-10-PCS; 2018-06-28)
PROC: F08Z0ZZ Bathing/Showering Techniques Treatment (ICD-10-PCS; 2018-06-28)
PROC: F08Z4ZZ Home Management Treatment (ICD-10-PCS; 2018-06-28)
DX: A41.9 Sepsis, unspecified organism (principal); J18.1 Lobar pneumonia, unspecified organism; J96.21 Acute and chronic respiratory failure with hypoxia; C34.31 Malignant neoplasm of lower lobe, right bronchus or lung; J44.0 Chronic obstructive pulmonary disease with (acute) lower respiratory infection; J44.1 Chronic obstructive pulmonary disease with (acute) exacerbation; R65.20 Severe sepsis without septic shock; Z21 Asymptomatic human immunodeficiency virus [HIV] infection status; E11.9 Type 2 diabetes mellitus without complications; I10 Essential (primary) hypertension; Y95 Nosocomial condition; Z66 Do not resuscitate; Z85.118 Personal history of other malignant neoplasm of bronchus and lung; Z90.2 Acquired absence of lung [part of]; R59.0 Localized enlarged lymph nodes

== ENCOUNTER 2018-07-10 08:31 | Inpatient (IN) | payer MEDICARE ==
[2018-07-10] MEDS ORDERED: Levalbuterol 1.25 MG/3 ML Inhal Soln UD ONE (08:41)
[2018-07-10] MEDS ORDERED: Levalbuterol 1.25 MG/3 ML Inhal Soln UD IH STA (08:50)
--- NOTE | 2018-07-10 08:54 | ED PDOC ---
Arrival/HPI - General Chief Complaint: Respiratory Distress Time Seen by Provider: 07/10/18 08:44 Historian: EMS - History of Present Illness Narrative History of Present Illness (Text): 07/10/18 08:40 68 M with PMHx of lung ca on home o2 3L, L Lobectomy, HTN and HIV, NKDA, brought in to the emergency department by EMS, accompanied by ex , for shortness of breath about 20-25 minutes prior to arrival. EMS reports auditory wheezes and diaphoresis. Patient denies intubation, POA: daughter contacted who confirms DNR and DNI. No other complaints reported, HPI limited due to patient condition. PMD: Dr. Varela [place] [place] Crystal [place] [place] Time/Duration: Prior to Arrival Symptom Onset: Sudden Symptom Course: Unchanged Activities at Onset: Light Context: Home Past Medical History - Infectious Disease Hx of Infectious Diseases: None - Cardiac Hx Hypertension: Yes - Pulmonary Hx Lung Cancer: Yes Hx Pneumonia: Yes Other/Comment: Left pneumonectomy. Mass noted to the Rt. lung - Neurological Hx Neurological Disorder: No - HEENT Hx HEENT Disorder: Yes (eyeglasses) - Renal Hx Renal Disorder: No - Endocrine/Metabolic Hx Diabetes Mellitus Type 2: Yes - Hematological/Oncological Hx Blood Disorders: Yes Hx Cancer: Yes (left lung/right lung) Hx Hepatitis C: Yes Other/Comment: HIV - count is undetectable, left lobectomy 2013, recently dx with mass to right lung 9cm was to start chemotherapy next week - Integumentary Hx Dermatological Disorder: Yes Other/Comment: multiple tatoos - Musculoskeletal/Rheumatological Hx Musculoskeletal Disorders: No Hx Falls: No - Gastrointestinal Hx Gastrointestinal Disorders: Yes (weight loss, appetite good) - Genitourinary/Gynecological Hx Genitourinary Disorders: No - Psychiatric Hx Emotional Abuse: No Hx Physical Abuse: No Hx Substance Use: No - Surgical History Other/Comment: left pneumonectomy, b/l meniscus sx around the 1 year apar t, ct guided lung bx 06/13/18 - Anesthesia Hx Anesthesia Reactions: No - Suicidal Assessment Feels Threatened In Home Enviroment: No Family/Social History Family/Social History: No Known Family HX Smoking Status: Former Smoker Hx Alcohol Use: No Hx Substance Use: No Allergies/Home Meds Allergies/Adverse Reactions: Allergies No Known Allergies Allergy (Verified 06/18/18 07:29) Home Medications: Home Meds Medication Instructions Recorded Confirmed Albuterol Sulfate [Ventolin Hfa] 1 puff IH QID 06/11/18 07/10/18 Breo Ellipta 100-25 Mcg INH 1 puff INH BID 06/11/18 07/10/18 Ibuprofen/Diphenhydramine Cit 1 each PO HS 06/11/18 07/10/18 [Advil Pm Caplet] RX: Efavirenz/Emtricitabine/Teno 1 tab PO DAILY 06/11/18 07/10/18 [Atripla 600 MG-200 MG-300 MG] RX: Multivitamin/Iron/Folic Acid 1 tab PO DAILY 06/11/18 07/10/18 [Centrum Adults Tablet] RX: amLODIPine [Norvasc] 5 mg PO DAILY 06/11/18 07/10/18 RX: diaZEpam [Valium] 5 mg PO HS 06/11/18 07/10/18 RX: oxyCODONE/Acetaminophen 1 tab PO PRN PRN 06/11/18 07/10/18 [Percocet 5/325 mg Tab] Naproxen [Naprosyn Tab] 200 mg PO DAILY 07/10/18 07/10/18 RX: Omeprazole 0 mg PO DAILY 07/10/18 07/10/18 Review of Systems - Physician Review All systems were reviewed & negative as marked: Yes (All other systems negative except that noted in the HPI.) Physical Exam - Physical Exam Narrative Physical Exam (Text): PE: Gen: VS reviewed, alert, well developed, well nourished, nontoxic, mild distress. Diaphoretic. Eye: EOMI, PERRL Neck: no JVD, supple, no adenopathy CV: Tachycardic heart rhythm. Pulm: Severe respiratory distress. Accessory muscle use. Diffuse course of breath sounds. Fair air exchange bilaterally. Tachypneic. Abd: soft, nontender, no guarding, no rebound, no rigidity Ext: no edema Skin: good color, no rash, no cyanosis Psych: responds appropriately to questions, normal affect Neuro: oriented x3, CN2-12 intact grossly, motor intact, sensation intact Respiratory Rate: Normal Medical Decision Making ED Course and Treatment: 07/10/18 08:40 Impression: 68 M brought in to the emergency department by EMS for shortness of breath that started about 20-25 minutes prior to arrival. Differential Diagnosis included but are not limited to: Plan: -- Labs -- CT of Angio chest PE protocol -- EKG -- X-ray of chest -- SOLU-Medrol -- Vancomycin Inj -- Xopenex -- Zosyn IVPB -- Blood culture -- Mixer [employer] Products -- BIPAP/CPAP setting adjustment once -- Reassess and disposition Prior Visits: Notes and results from previous visits were reviewed. Patient was last seen in the emergency department on06/18/18 for shortness of breath. Patient was hospitalized in ICU in guarded condition, with diagnosis of lung mass and pneumonia. Progress Notes: 07/10/18 08:51 I discussed plan of care with daughter, Mirta Lockett via phone, she states along with other family members have legal power of securities attorney. it was discussed and confirmed that the patient is DNR as well as DNI. This is concordance with the patient's wishes. Furthermore, the patient also verbally states he does not want to be intubated. 07/10/18 10:20 re-eval, patient appears more comfortable from a respiratory standpoint, bipap still ongoing, patient is less tachypneic without very mild accessory muscle us e, on lung exam breath sounds are clear with good air exchange bilaterally 07/10/18 10:[address] Varela, who accepts admission to telemetry. Patient to be admitted for empiric antibiotics for COPD exacerbation/ worsening pleural effusion. - Critical Care Critical Care Minutes: 30 minutes - RAD Interpretation Narrative RAD Interpretations (Text): CT of chest reviewed by radiologist, shows: Dictator : Freddy Lynn MD Report Date : 07/10/2018 10:57:27 FINDINGS: PULMONARY ARTERIES: Prior left pulmonectomy reiterated. No definite pulmonary embolus appreciated in the remaining pulmonary arterial distribution right lung and right main pulmonary artery and main pulmonary artery. AORTA: The ascending thoracic aorta remains dilated to 4.1 cm with remainder normal caliber. Limited atherosclerotic calcified plaque is seen associated with the arch primarily. LUNGS: Dense atelectasis affects the right lower lobe likely postobstructive related to a large right hilar/infrahilar mass measures approximate 9.6 x 9.2 cm. Extensive emphysematous changes seen in the unaffected right upper lobe with motion artifacts degrade the quality exam significantly. Compression atelectasis is favored over infiltrates at the intervening lung between well aerated and densely atelectatic right lower and middle lobes. PLEURAL SPACES: Minimal right pleural effusion is identified. Limited fluid is seen the left hemithorax post pneumonectomy. HEART: Cardiomegaly is reiterated. No significant pericardial effusion. LYMPH NODES: Lymphadenopathy is not excluded the right hilar region with a sub carinal space in fact. No definite significant paratracheal lymphadenopathy. BONES, CHEST WALL: Unremarkable. No no acute fracture or destructive lesion. Third left rib old healed fracture reiterated. OTHER FINDINGS: Unremarkable. IMPRESSION: 1. No CT evidence of pulmonary embolus. 2. Large right perihilar/infrahilar mass reiterated with dense atelectasis affecting the right middle and lower lobes. Likely compressive atelectasis is seen at intervening lung between the mass and well aerated right upper lobe, favored over infiltrates. 3. Extensive emphysema right upper lobe. Restrained motion degrades quality exam. Prior left pneumonectomy. Limited right pleural effusion. 4. Cardiomegaly reiterated. X-ray of chest reviewed by radiologist, shows: Dictator : Freddy Lynn MD Report Date : 07/10/2018 09:23:58 FINDINGS: LUNGS: Post left pneumonectomy changes reiterated. Extensive dense reticular nodular infiltrate is increased at the mid to inferior right lung zones representing interval worsening. No definite pneumothorax bilaterally. Large medial basilar mass obscured by the heart. Right pleural effusion is mild but definite. PLEURA: As above. CARDIOVASCULAR: No aortic atherosclerotic calcification present. Evaluation for pulmonary vascular congestion is limited bio bilateral opacity. Cardiac size likely stable but also limited. OSSEOUS STRUCTURES: No significant abnormalities. VISUALIZED UPPER ABDOMEN: Normal. OTHER FINDINGS: None. IMPRESSION: Post left pneumonectomy changes are reiterated with mild right pleural effusion likely increased. Coarse reticular infiltrates are increasing at the right chest now sparing only the right apex. No pneumothorax bilaterally. Radiology Orders: 07/10/18 08:48 CHEST PORTABLE [RAD] Stat 07/10/18 08:49 ANGIO CHEST PE PROTOCOL [CT] Stat Counter Intelligence Technician: Radiologist - Medication Orders Current Medication Orders: Discontinued Medications Levalbuterol HCl (Xopenex) 1.25 mg IH STAT STA Stop: 07/10/18 08:51 Methylprednisolone (Solu-Medrol) 125 mg IVP STAT STA Stop: 07/10/18 08:51 - Scribe Statement The provider has reviewed the documentation as recorded by the Scribe Felicity Love All medical record entries made by the Scribe were at my direction and personally dictated by me. I have reviewed the chart and agree that the record accurately reflects my personal performance of the history, physical exam, me dical decision making, and the department course for this patient. I have also personally directed, reviewed, and agree with the discharge instructions and disposition. Disposition/Present on Arrival - Present on Arrival Any Indicators Present on Arrival: No History of DVT/PE: No History of Uncontrolled Diabetes: No Urinary Catheter: No History of Decub. Ulcer: No History Surgical Site Infection Following: None - Disposition Have Diagnosis and Disposition been Completed?: Yes Diagnosis: COPD (chronic obstructive pulmonary disease) Disposition: HOSPITALIZED Disposition Time: 10:40 Patient Plan: Admission Condition: STABLE
[2018-07-10 09:01] LABS: ARTERIAL BLOOD GAS HCO3 24.2 mmol/L (21-28); ARTERIAL BLOOD GAS HEMOGLOBIN 14.9 g/dL (11.7-17.4); ARTERIAL BLOOD GAS O2 CAPACITY 20.2 mL/dl (16-24); ARTERIAL BLOOD GAS O2 CONTENT 18.6 ML/dl (15-23); ARTERIAL BLOOD GAS O2 SAT 92.1 % (95-98); ARTERIAL BLOOD GAS PCO2 54 mm/Hg (35-45); ARTERIAL BLOOD GAS PH 7.26 (7.35-7.45); ARTERIAL BLOOD GAS TCO2 25.9 mmol.L (22-28)
[2018-07-10 09:02] LABS: BASO # 0.05 K/mm3 (0.0-2.0); BASO % 0.4 % (0.0-3.0); EOS # 0.3 (0.0-0.7); EOS % 2.8 % (1.5-5.0); GRAN # 7.68 (1.4-6.5); GRAN % 62.1 % (50.0-68.0); LYMPH # 3.8 (1.2-3.4); LYMPH % 30.8 % (22.0-35.0); MEAN CELL VOLUME 76.7 fl (80.0-105.0); MEAN CORPUSCULAR HEMOGLOBIN 23.5 pg (25.0-35.0); MEAN CORPUSCULAR HGB CONC 30.6 g/dl (31.0-37.0); MEAN PLATELET VOLUME 11.3 fl (7.0-11.0); MONO # 0.5 (0.1-0.6); MONO % 3.9 % (1.0-6.0); RBC 6.82 10^6/uL (3.5-6.1); WHITE BLOOD COUNT 12.4 10^3/uL (4.5-11.0)
[2018-07-10 09:12] LABS: INR 1.1; PARTIAL THROMBOPLASTIN TIME 29.8 Seconds (25.1-36.5); PROTHROMBIN TIME 12.7 SECONDS (9.4-12.5)
[2018-07-10 09:21] LABS: ALBUMIN 3.5 g/dL (3.0-4.8); ALT/SGPT 43 U/L (7-56); AST/SGOT 41 U/L (17-59); BLOOD UREA NITROGEN 24 mg/dL (7-21); CALCIUM 8.5 mg/dL (8.4-10.5); GFR NON-AFRICAN AMERICAN > 60
--- NOTE | 2018-07-10 09:27 | RAD ---
Date of service: 07/10/2018 HISTORY: pneumonia COMPARISON: Portable chest 06/20/2018. FINDINGS: LUNGS: Post left pneumonectomy changes reiterated. Extensive dense reticular nodular infiltrate is increased at the mid to inferior right lung zones representing interval worsening. No definite pneumothorax bilaterally. Large medial basilar mass obscured by the heart. Right pleural effusion is mild but definite. PLEURA: As above. CARDIOVASCULAR: No aortic atherosclerotic calcification present. Evaluation for pulmonary vascular congestion is limited bio bilateral opacity. Cardiac size likely stable but also limited. OSSEOUS STRUCTURES: No significant abnormalities. VISUALIZED UPPER ABDOMEN: Normal. OTHER FINDINGS: None. IMPRESSION: Post left pneumonectomy changes are reiterated with mild right pleural effusion likely increased. Coarse reticular infiltrates are increasing at the right chest now sparing only the right apex. No pneumothorax bilaterally.
[2018-07-10] MEDS ORDERED: Iohexol 350 MG/100 ML VIAL ONE (09:33)
[2018-07-10] MEDS ORDERED: Vancomycin 500 mg Inj IVPB STA (10:40)
[2018-07-10] MEDS ORDERED: Piperacillin/Tazobact 3.375 gm 100 ML IVPB STA (10:41)
--- NOTE | 2018-07-10 11:01 | CT ---
Date of service: 07/10/2018 PROCEDURE: CT Chest with contrast (Pulmonary Angiogram) HISTORY: pulmonary embolism COMPARISON: None available. TECHNIQUE: Axial computed tomography images were obtained of the chest in the pulmonary arterial phase of enhancement. Coronal and sagittal reformatted images were created and reviewed. Intravenous contrast dose: Omnipaque 350, 100 cc Radiation dose: Total exam DLP = 431.87 mGy-cm. This CT exam was performed using one or more of the following dose reduction techniques: Automated exposure control, adjustment of the mA and/or kV according to patient size, and/or use of iterative reconstruction technique. FINDINGS: PULMONARY ARTERIES: Prior left pulmonectomy reiterated. No definite pulmonary embolus appreciated in the remaining pulmonary arterial distribution right lung and right main pulmonary artery and main pulmonary artery. AORTA: The ascending thoracic aorta remains dilated to 4.1 cm with remainder normal caliber. Limited atherosclerotic calcified plaque is seen associated with the arch primarily. LUNGS: Dense atelectasis affects the right lower lobe likely postobstructive related to a large right hilar/infrahilar mass measures approximate 9.6 x 9.2 cm. Extensive emphysematous changes seen in the unaffected right upper lobe with motion artifacts degrade the quality exam significantly. Compression atelectasis is favored over infiltrates at the intervening lung between well aerated and densely atelectatic right lower and middle lobes. PLEURAL SPACES: Minimal right pleural effusion is identified. Limited fluid is seen the left hemithorax post pneumonectomy. HEART: Cardiomegaly is reiterated. No significant pericardial effusion. LYMPH NODES: Lymphadenopathy is not excluded the right hilar region with a sub carinal space in fact. No definite significant paratracheal lymphadenopathy. BONES, CHEST WALL: Unremarkable. No no acute fracture or destructive lesion. Third left rib old healed fracture reiterated. OTHER FINDINGS: Unremarkable. IMPRESSION: 1. No CT evidence of pulmonary embolus. 2. Large right perihilar/infrahilar mass reiterated with dense atelectasis affecting the right middle and lower lobes. Likely compressive atelectasis is seen at intervening lung between the mass and well aerated right upper lobe, favored over infiltrates. 3. Extensive emphysema right upper lobe. Restrained motion degrades quality exam. Prior left pneumonectomy. Limited right pleural effusion. 4. Cardiomegaly reiterated.
[2018-07-10] MEDS ORDERED: Levalbuterol 0.63 MG/3 ML Inhal Soln UD IH STA (11:35)
[2018-07-10] MEDS ORDERED: Levalbuterol 0.63 MG/3 ML Inhal Soln UD ONE (11:40)
[2018-07-10] MEDS ORDERED: Vancomycin 1.25 GM in Sodium Chloride 0.9% 500 ML IVPB ONE (11:48)
[2018-07-10 14:34] VITALS: BMI 21.4
[2018-07-10] MEDS ORDERED: Influenza Vaccine 60 mcg/0.5 mL SYR (4YR UP) IM ONE (14:34)
[2018-07-10] MEDS ORDERED: Pneumococcal 23-Valent Vaccine IM ONE (14:34)
[2018-07-10] MEDS: Oxycodone/Acetaminophen 10/325 mg Tab PO PRN ×2 (15:31→23:15)
--- NOTE | 2018-07-10 15:55 | CARD ---
APPROVED REPORT Date of service: 07/10/2018 EKG Measurement Heart [id number] <Conclusion> Sinus tachycardia Rightward axis Nonspecific ST and T wave abnormality Abnormal ECG
[2018-07-10] MEDS: Magnesium Oxide 400 mg Tab UD PO SCH (19:00)
[2018-07-10] MEDS: Albuterol-Ipratrop 3 mg / 0.5 (3 ml) UD IH SCH (20:12)
[2018-07-10] MEDS: Insulin Lispro (humaLOG) LOW Coverage SC SCH (22:00)
[2018-07-10] MEDS: Piperacillin/Tazobact 3.375 gm 100 ML IVPB SCH (22:11)
[2018-07-10] MEDS: Efavirenz/Emtricitabine/Teno 1 TAB PO SCH (23:14)
[2018-07-11] MEDS: Albuterol-Ipratrop 3 mg / 0.5 (3 ml) UD IH SCH ×4 (02:27→19:56)
[2018-07-11] MEDS: Piperacillin/Tazobact 3.375 gm 100 ML IVPB SCH (06:29)
[2018-07-11] MEDS ORDERED: Albuterol-Ipratrop 3 mg / 0.5 (3 ml) UD IH PRN (06:51)
[2018-07-11] MEDS: Oxycodone/Acetaminophen 10/325 mg Tab PO PRN ×3 (06:56→22:03)
[2018-07-11] MEDS: Budesonide 0.5 mg/2 ml Inhal Susp UD IH SCH ×2 (08:22→19:56)
[2018-07-11] MEDS ORDERED: Efavirenz/Emtricitabine/Teno 1 TAB PO SCH ×2 (10:00→22:00)
[2018-07-11] MEDS: Magnesium Oxide 400 mg Tab UD PO SCH ×2 (10:08→18:16)
[2018-07-11] MEDS: Insulin Lispro (humaLOG) LOW Coverage SC SCH ×4 (10:08→22:00)
[2018-07-11] MEDS: MethylPREDNISolone 40 mg Vial IVP SCH ×2 (10:09→22:05)
--- NOTE | 2018-07-11 15:03 | HP ---
HISTORY OF PRESENT ILLNESS: A 68-year-old white male with history of HIV positive, on Atripla. 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 The patient was recently hospitalized to [facility] and was discharged a week ago after being treated for exacerbation of COPD with pneumonia and pleural effusion and lung cancer. The patient was discharged a week ago, started chemotherapy with Dr. Rojas in [place]. On the day prior to admission to this admission, patient had done too much activity at home, became acutely short of breath, was unable to breathe, desaturated and was transported to the hospital. The patient was brought to the emergency room. On the day of admission, he was severely hypoxic and severely short of breath and tachycardic. A CAT scan was done, there was no evidence of a clot, severe COPD and aggressive lung cancer. The patient was admitted because of severe hypoxia and shortness of breath. The patient denies fever, chills, sputum production, cough, etc. The patient only complains of severe fatigue and shortness of breath. The patient denies any chest pain, palpitations, nausea, vomiting, lightheadedness or dizziness. The patient denies any GI symptoms of diarrhea, vomiting or nausea. The patient denies any CONSTRUCTION SECRETARY symptoms of headache, lightheadedness, dizziness, syncope, loss of strength or sensation in the upper and lower extremities. The patient has a remote history of tobacco abuse and not smoked. He does have a history of being HIV positive for many years and being treated with Atripla and doing well. The patient has no recent travel history. Does not use illicit drugs. He is a nonsmoker at this point. ALLERGIES: THERE ARE NO KNOWN ALLERGIES. PHYSICAL EXAMINATION: GENERAL: Shows a well-developed thin white male, comfortable in bed. VITAL SIGNS: Stable the following morning at 97.5, heart rate 96 and blood pressure 126/90. HEART: Regular sinus rhythm with murmurs. CHEST: Shows decreased breath sounds at the left entire thorax and rhonchi in the right thorax without wheezing. ABDOMEN: Soft. No hepatosplenomegaly. No organomegaly. EXTREMITIES: Without cyanosis, clubbing or edema. NEUROLOGIC: Sensation is grossly intact. LABORATORY DATA: Unremarkable except for a mildly elevated white count of 12.2, hemoglobin of 16. BUN and creatinine are 24 and 1.2. Blood sugar is 249. The patient does have a history of being [id number] diabetes mellitus, well controlled at home. IMPRESSION: This is a 68-year-old white male presenting with hypoxia, shortness of breath, history of lung cancer, history of lobectomy, history of human immunodeficiency virus positive, history for severe chronic obstructive pulmonary disease. Steve Varela MD
--- NOTE | 2018-07-11 18:54 | CON ---
DATE: 07/11/2018 PULMONARY CONSULTATION REASON FOR PULMONARY CONSULTATION: Respiratory failure. REFERRING PHYSICIAN: Dr. Varela. HISTORY OF PRESENT ILLNESS: The patient is a chronically ill 68-year-old male, with past medical history significant for recent pneumonia, extensive/advanced lung cancer (right lung), status post left pneumonectomy (2013), advanced chronic obstructive pulmonary disease, on home oxygen, hypertension, HIV positivity, who presents to [facility] with a 1-day history of increasing shortness of breath at rest and dyspnea on exertion. The patient also states to a minimal cough with occasional sputum production. There is no history of chest pain, coughing up of blood, or chest pain - made worse with deep respirations. There is no history of temperatures, chills or infectious exposure. There is no history of night sweats. The patient has lost weight with decreased appetite over the past 6 months. No history of leg or calf pains. No history of syncope or diaphoresis. No history of recent travel or trauma. REVIEW OF SYSTEMS: No history of nausea, vomiting, diarrhea. No acute urinary symptoms. No new neurologic complaints. Rest of the review of systems negative. ALLERGIES: NO KNOWN ALLERGIES. SOCIAL HISTORY: Positive for extensive tobacco usage. No alcohol. FAMILY HISTORY: No inheritable diseases. HOME MEDICATIONS: Include Percocet, Valium, Norvasc, Protonix, Naprosyn, efavirenz, calcium, Breo Ellipta, DuoNebs, Tylenol. PHYSICAL EXAMINATION: GENERAL: The patient appears comfortable this morning. He is not short of breath at rest. VITAL SIGNS: Temperature is 97.5, pulse 96, respirations 19, blood pressure 126/90. Oxygen saturation on nasal cannula is 93%. HEENT: Normocephalic, atraumatic. No JVD. CARDIOVASCULAR: Positive S1, S2. No S3 gallop. LUNGS: Right lung - mild rhonchi. No wheezing. Decreased breath sounds - left lung. EXTREMITIES: No clubbing, cyanosis or edema. Calves are nontender to palpation. GI: Abdomen is soft, nontender and nondistended. Bowel sounds are positive. SKIN: No acute rash. NEUROLOGIC: Exam limited at the present time. PERTINENT LABORATORY DATA: CAT scan of the chest was done as an angiogram protocol. There is no evidence of pulmonary embolism. There is a very large right perihilar/infrahilar mass (seen on previous CAT scans), with dense atelectasis affecting the right middle and lower lobes. There is extensive emphysema noted in the right upper lobe. There are no significant infiltrates - consistent with pneumonia. The patient is status post left pneumonectomy. CBC: White count 12.4K, hemoglobin 16.0, hematocrit 52.3, platelets of 172,000. Arterial blood gas was done on 100% oxygen. Results are: PH 7.26, pCO2 of 54, pO2 of 56. Complete metabolic profile: BUN 24, glucose 249. Rest of the metabolic profile is within normal limits. IMPRESSION: 1. Recurrent respiratory failure. 2. Advanced/extensive lung cancer. 3. Advanced chronic obstructive pulmonary disease. 4. Mild bronchospasm. PLAN: I did discuss the case with the night nurse at length. I have also discussed the case with the patient at length, and reviewed the chart at length. The patient presents to [facility] with a 1-day history of worsening pulmonary symptoms. I did review the CT scan of the chest - done as an angiogram protocol. Findings are noted above. As above, the patient is status post left pneumonectomy. There is a very large right suprahilar/infrahilar mass, causing atelectasis of the right middle and right lower lobes. The right upper lobe shows extensive emphysema, but no definite infiltrates. I have also reviewed the arterial blood gas. A respiratory acidosis with a significant increase in the alveolar-arterial gradient is noted. The patient does feel better this morning. He is saturating at 93% on nasal cannula. On physical exam, the patient is in [id number] bronchospasm. I will continue with the current nebulizer treatments and add intravenous steroids this morning. I will also add inhaled Pulmicort. The patient is on Breo-elipta at home. Again, the patient does feel significantly better this morning - compared to yesterday. However, unfortunately, the overall status/prognosis for this patient remains very, very poor. Oncology evaluation with Dr. Rojas has been ordered. The patient is currently a DNR/DNR status. I will discuss the above with the attending physician. Thank you very much for this Pulmonary consultation. Kwadwo Navarro MD [facility] # [id number]
[2018-07-11] MEDS: Efavirenz/Emtricitabine/Teno 1 TAB PO SCH (22:03)
[2018-07-12] MEDS: Albuterol-Ipratrop 3 mg / 0.5 (3 ml) UD IH SCH ×4 (02:27→20:51)
[2018-07-12] MEDS: Budesonide 0.5 mg/2 ml Inhal Susp UD IH SCH ×2 (07:39→20:51)
--- NOTE | 2018-07-12 07:55 | PN ---
DATE: 07/12/2018 PULMONARY NOTE DICTATION SUBJECTIVE: The patient is more short of breath this morning at the time of my examination. He just got back to the bed - from the commode. PHYSICAL EXAMINATION: VITAL SIGNS: (Last noted in the computer): Temperature is 97.7, pulse 101, respirations 20/22, blood pressure 134/79. Oxygen saturation on Ventimask is 95%. HEENT: Normocephalic, atraumatic. No JVD. CARDIOVASCULAR: Positive S1, S2. No S3 gallop. LUNGS: Less rhonchi - right lung. No wheezing. Decreased breath sounds - left lung. EXTREMITIES: No clubbing, cyanosis or edema. Calves are nontender to palpation. GI: Abdomen is soft, nontender and nondistended. Bowel sounds are positive. SKIN: No acute rash. NEUROLOGIC: Exam limited at the present time. IMPRESSION: 1. Recurrent respiratory failure. 2. Advanced/extensive lung cancer. 3. Advanced chronic obstructive pulmonary disease. 4. Mild bronchospasm. PLAN: The patient appears more short of breath this morning at the time of my examination. The nurse informed me that the patient did just come back to bed from the commode. The patient does get extremely short of breath with any exertion. He also suffers from oxygen desaturation with exertion. The night nurse agreed that the patient is not doing well overall. On physical exam, there is actually less bronchospasm noted. There remains a significant alveolar-arterial gradient. I will continue the current nebulizer treatments and intravenous steroids for now. We are still awaiting a consultation by Dr. Rojas (Oncology). I also suggest the consultation with Kia Valdovinos (Palliative Care). Unfortunately, the future status/prognosis for this pleasant patient remains very, very poor. Again, hopefully Dr. Rojas (Oncology) will see the patient today. Again, I also highly suggest a Palliative Care consult at this point in time. I will discuss the above with Dr. Varela. Kwadwo Navarro MD [facility]
[2018-07-12] MEDS: Insulin Lispro (humaLOG) LOW Coverage SC SCH ×4 (08:44→22:08)
[2018-07-12] MEDS: Oxycodone/Acetaminophen 10/325 mg Tab PO PRN ×3 (08:53→22:34)
[2018-07-12] MEDS: Magnesium Oxide 400 mg Tab UD PO SCH ×2 (11:13→18:38)
[2018-07-12] MEDS: MethylPREDNISolone 40 mg Vial IVP SCH ×2 (11:13→22:33)
--- NOTE | 2018-07-12 11:42 | CP.PCM.CON ---
History of Present Illness - History of Present Illness History of Present Illness: Palliative consult requested by Dr Scott Varela Reason: Goals of care This is a 68 year old patient with history of metastatic SC lung cancer, HTN, HIV who presented to ED yesterday with increased shortness sof breath and hypoxia. Chest x ray: s/p left pneumonectomy changes, mild right pleural effusion. Reti cular infiltrates right chest, no pneumothorax bilaterally Chest CT: No PE, large right perihilar/infrahilar mass,dense atelectasis in right middle/upper lobes, extensive emphysema RUL. 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 Social History: Former heavy smoker, no alcohol or drug use. Retired, lives with family Family History: Non contributory. Advance Care Planning: The patient has a POLST:DNR/DNI. A copy is in the chart. Review of Systems:As per HPI, 12 point review otherwise negative Past Patient History - Infectious Disease Hx of Infectious Diseases: None - Past Social History Smoking Status: Former Smoker - CARDIAC Hx Hypertension: Yes - PULMONARY Hx Lung Cancer: Yes Hx Pneumonia: Yes Other/Comment: Left pneumonectomy. Mass noted to the Rt. lung - NEUROLOGICAL Hx Neurological Disorder: No - HEENT Hx HEENT Problems: Yes (eyeglasses) - RENAL Hx Chronic Kidney Disease: No - ENDOCRINE/METABOLIC Hx Diabetes Mellitus Type 2: Yes - HEMATOLOGICAL/ONCOLOGICAL Hx Blood Disorders: Yes Hx Cancer: Yes (left lung/right lung) Hx Hepatitis C: Yes Other/Comment: HIV - count is undetectable, left lobectomy 2013, recently dx with mass to right lung 9cm was to start chemotherapy next week - INTEGUMENTARY Hx Dermatological Problems: Yes Other/Comment: multiple tatoos - MUSCULOSKELETAL/RHEUMATOLOGICAL Hx Musculoskeletal Disorders: No Hx Falls: No - GASTROINTESTINAL Hx Gastrointestinal Disorders: Yes (weight loss, appetite good) - GENITOURINARY/GYNECOLOGICAL Hx Genitourinary Disorders: No - PSYCHIATRIC Hx Emotional Abuse: No Hx Physical Abuse: No Hx Substance Use: No - SURGICAL HISTORY Other/Comment: left pneumonectomy, b/l meniscus sx around the 1 [address], ct guided lung bx 06/13/18 - ANESTHESIA Hx Anesthesia Reactions: No Meds Allergies/Adverse Reactions: Allergies Allergy/AdvReac Type Severity Reaction Status Date / Time No Known Allergies Allergy Verified 06/18/18 07:29 - Medications Medications: Current Medications Albuterol/Ipratropium (Duoneb 3 Mg/0.5 Mg (3 Ml) Ud) 3 ml I[facility] [id number] [facility] Last Admin: 07/12/18 07:39 Dose: Not Given Albuterol/Ipratropium (Duoneb 3 Mg/0.5 Mg (3 Ml) Ud) 3 ml IH Q2H PRN PRN Reason: Shortness of Breath Last Admin: 07/12/18 06:00 Dose: 3 ml Budesonide (Pulmicort Respules) 0.5 mg IH [id number] [facility] Last Admin: 07/12/18 07:39 Dose: Not Given Efavirenz/Emtricitabine/Tenofovir (Atripla 600 Mg-200 Mg-300 Mg) 1 tab PO HS [facility]; Protocol Last Admin: 07/11/18 22:03 Dose: 1 tab Insulin Human Lispro (Humalog Low) 0 units SC [facility]; Protocol Last Admin: 07/12/18 08:44 Dose: Not Given Magnesium Oxide (Mag-Ox) 400 mg PO BID [facility] Last Admin: 07/12/18 11:13 Dose: 400 mg Methylprednisolone (Solu-Medrol) 40 mg IVP Q12 [facility] Last Admin: 07/12/18 11:13 Dose: 40 mg Oxycodone/Acetaminophen (Percocet 10/325 Mg Tab) 1 tab PO Q6H PRN PRN Reason: Pain, severe (8-10) Last Admin: 07/12/18 08:53 Dose: 1 tab Physical Exam - Constitutional Appears: Cachectic, Chronically Ill - Eye Exam Eye Exam: Normal appearance, PERRL - ENT Exam ENT Exam: Mucous Membranes Moist, Normal Exam - Neck Exam Neck exam: Positive for: Normal Inspection - Respiratory Exam Respiratory Exam: Decreased Breath Sounds, Rhonchi, Wheezes - Cardiovascular Exam Cardiovascular Exam: Tachycardia, +S1, +S2 - GI/Abdominal Exam GI & Abdominal Exam: Normal Bowel Sounds, Soft - Extremities Exam Extremities exam: Positive for: full ROM, pedal pulses present - Back Exam Back exam: NORMAL INSPECTION - Neurological Exam Neurological exam: Alert, Oriented x3 - Skin Skin Exam: Dry, Pallor - Additional Findings Additional findings: Palliative performance scale rating 40% Results - Vital Signs Recent Vital Signs: Last Vital Signs Temp 97.7 F 07/12/18 06:00 Pulse 101 H 07/12/18 06:00 Resp 20 07/12/18 06:00 BP 134/79 07/12/18 06:00 Pulse Ox 95 07/12/18 06:00 - Labs Result Diagrams: 07/10/18 08:40 07/10/18 08:40 Labs: Laboratory Results - last 24 hr 07/11/18 07/11/18 07/11/18 07:21 11:29 16:14 POC Glucose (mg/dL) 148 H 187 H 179 H 07/11/18 07/12/18 07/12/18 21:13 07:25 11:16 POC Glucose (mg/dL) 153 H 175 H 140 H Assessment & Plan - Assessment and Plan (Free Text) Assessment: 68 year old male with metastatic squamous cell lung cancer, HTN, HIV and COPD who is admitted with recurrent respiratory failure. This patient is known to me form last admission. During that visit we discussed goals of care and advance care planning. He completed a POLST: DNR/DNI. He intended to continue chemotherapy. Mr. Lockett states that he received one chemotherapy treatment last week and was scheduled to have another today. He been short of breath over the past few days and came to the hospital for further care. He states that he is very tired today because he did not get much sleep during the night. He denies pain. He is less short of breath then when he arrived. He fully intends to continue chemotherapy treatment, but intends to discuses plan with Dr. Rojas . Time spent with spent in goals of care discussion, 15 minutes Plan: Goals of care Respiratory failure: Pulmonology following, recs reviewed. Continue Duonebs, Pulmicort, Solu Medrol, O2 therapy. Chest x rays Squamous Cell Lung cancer: Dr Rojas's consult pending DM: Monitor glucose levels, Humalog coverage as needed. Continue Atrilpla Valumo as needed for anxiety Percocet as needed for pain
--- NOTE | 2018-07-12 12:20 | PN ---
DATE: 07/12/2018 SUBJECTIVE: A 68-year-old white male with history of lung CA, history of left lobectomy for lung CA, previous; HIV positive; COPD, severe. The patient was admitted with hemoptysis, shortness of breath, hypoxia, and difficulty breathing. The patient has been on steroids, bronchodilators, and antibiotics. Seen by Dr. Navarro. The patient is markedly worse today. He is a DNR/DNI. He is on high-flow oxygen. He does use CPAP or BiPAP at times to conserve his breathing. The patient was seen on consultation with Dr. Rojas. He did have one treatment for his chemotherapy approximately last week. He is worse today. There was more hemoptysis. His chest shows decreased breath sounds, left and rhonchi, right with minimal wheezing. Abdomen is benign. Extremities without cyanosis, clubbing, or edema. The patient is awake and alert, conversant, but extremely short of breath and there was some active hemoptysis, but minimal. Plan is for palliative care. We will reach out to Dr. Rojas to let her know that her patient being here. Continue bronchodilators, antibiotics, and oxygen therapy and we will refer him to Palliative Care or other efforts. Steve Varela MD
--- NOTE | 2018-07-12 22:14 | CP.PCM.PCO ---
<Timmy Martin - Last Filed: 07/12/18 22:12> Physician Communication Note - Physician Communication Note Physician Communication Note: Pt has been requesting valium 5 nightly for last 2 nights; will adm x1 TN <Jenifer Betancourt - Last Filed: 07/13/18 04:27> Attending/Attestation - Attestation I have personally seen and examined this patient.: No I have fully participated in the care of the patient.: Yes I have reviewed all pertinent clinical information: Yes
[2018-07-12] MEDS: Efavirenz/Emtricitabine/Teno 1 TAB PO SCH (22:34)
[2018-07-13] MEDS: Albuterol-Ipratrop 3 mg / 0.5 (3 ml) UD IH SCH ×4 (03:58→20:11)
--- NOTE | 2018-07-13 07:25 | PN ---
DATE: 07/13/2018 PULMONARY NOTE SUBJECTIVE: The patient appears much more comfortable this morning - compared to yesterday. He is not short of breath at rest. He is awake and alert. PHYSICAL EXAMINATION: VITAL SIGNS: Temperature is 97.7, pulse 95, respirations 18/20, blood pressure 134/94. Oxygen saturation on nasal cannula is 96%. HEENT: Normocephalic, atraumatic. No JVD. CARDIOVASCULAR: Positive S1, S2. No S3 gallop. LUNGS: Much less/minimal rhonchi - right lung. No wheezing. Decreased breath sounds - left lung. EXTREMITIES: No clubbing, cyanosis or edema. Calves are nontender to palpation. GI: Abdomen is soft, nontender and nondistended. Bowel sounds are positive. SKIN: No acute rash. NEUROLOGIC: Limited at the present time. IMPRESSION: 1. Recurrent respiratory failure. 2. Advanced/extensive lung cancer. 3. Advanced chronic obstructive pulmonary disease. 4. Mild bronchospasm. PLAN: The patient appears much more comfortable this morning - compared to yesterday. He is not short of breath at rest. He does state to feeling much, much better overall. I did discuss the case with the night nurse at length. The night nurse stated that the patient had a very good night. On physical exam, there is certainly less bronchospasm noted. In addition, the alveolar-arterial gradient is much less. Oxygen saturation on nasal cannula is now 96%. I will continue with the current nebulizer treatments and inhaled steroids for now. I will also try decreasing the intravenous steroids this morning. Inputs by Palliative Care and Internal Medicine are noted. The patient also spoke with Dr. Rojas (Oncology) by phone yesterday. The patient is certainly improved clinically - compared to the initial presentation. However, again, unfortunately, the future status/prognosis for this patient remains very, very poor. All are aware. I will discuss the above with the attending physician. Kwadwo Navarro MD [email or web address]
[2018-07-13] MEDS: Oxycodone/Acetaminophen 10/325 mg Tab PO PRN ×3 (07:32→21:09)
[2018-07-13] MEDS: Insulin Lispro (humaLOG) LOW Coverage SC SCH ×4 (08:17→21:47)
[2018-07-13] MEDS ORDERED: POLYETHYLENE GLYCOL 3350 17 GM/Dose PACKET PO ONE (09:13)
--- NOTE | 2018-07-13 09:39 | PN ---
DATE: 07/13/2018 SUBJECTIVE: The patient has no complaints of any chest pain or shortness of breath. No headaches or dizziness. PHYSICAL EXAMINATION: VITAL SIGNS: Temperature is 97.7, pulse of 100, blood pressure 134/94 and respirations 20. GENERAL: The patient is lying in bed, flat, comfortable. HEENT: No oral lesion. Anicteric sclerae. Moist mucosa. NECK: No JVD, adenopathy, or thyromegaly. CARDIOVASCULAR: S1 and S2, regular. No murmurs, rubs, or gallops. LUNGS: Clear to auscultation bilaterally. No wheeze, rales, or rhonchi. ABDOMEN: Bowel sounds are positive, soft, nontender and nondistended. EXTREMITIES: no cyanosis, clubbing or edema. LABORATORY DATA: White count of 12.4. ASSESSMENT: 1. Acute chronic obstructive pulmonary disease. 2. Human immunodeficiency virus. 3. Lung cancer. PLAN: The patient is currently comfortable, is going to be on nebulizer treatment. The patient is on magnesium replacement. He is on steroids. He says he is feeling better. He is on BiPAP. He is being followed by cardiology. Roman Carlisle MD
[2018-07-13] MEDS: MethylPREDNISolone 40 mg Vial IVP SCH ×2 (11:19→22:14)
[2018-07-13] MEDS: Magnesium Oxide 400 mg Tab UD PO SCH ×2 (11:19→17:54)
[2018-07-13] MEDS: Budesonide 0.5 mg/2 ml Inhal Susp UD IH SCH (20:11)
[2018-07-13] MEDS: Efavirenz/Emtricitabine/Teno 1 TAB PO SCH (21:04)
[2018-07-14] MEDS: Albuterol-Ipratrop 3 mg / 0.5 (3 ml) UD IH SCH ×5 (01:54→18:55)
[2018-07-14] MEDS: Insulin Lispro (humaLOG) LOW Coverage SC SCH ×4 (07:30→22:00)
[2018-07-14 07:54] LABS: MEAN CELL VOLUME 74.8 fl (80.0-105.0); MEAN CORPUSCULAR HEMOGLOBIN 23.1 pg (25.0-35.0); MEAN CORPUSCULAR HGB CONC 30.9 g/dl (31.0-37.0); MEAN PLATELET VOLUME 10.8 fl (7.0-11.0); RBC 6.02 10^6/uL (3.5-6.1); RED CELL DISTRIBUTION WIDTH 14.2 % (11.5-14.5); WHITE BLOOD COUNT 7.3 10^3/uL (4.5-11.0)
[2018-07-14 07:55] LABS: HEMOGLOBIN 13.9 g/dL (14.0-18.0)
[2018-07-14 08:05] LABS: ALBUMIN 3.2 g/dL (3.0-4.8); ALT/SGPT 80 U/L (7-56); AST/SGOT 47 U/L (17-59); BLOOD UREA NITROGEN 30 mg/dL (7-21); CALCIUM 9.5 mg/dL (8.4-10.5); GFR NON-AFRICAN AMERICAN > 60
[2018-07-14] MEDS: Budesonide 0.5 mg/2 ml Inhal Susp UD IH SCH ×3 (08:21→18:55)
[2018-07-14] MEDS: Oxycodone/Acetaminophen 10/325 mg Tab PO PRN ×3 (08:55→22:19)
--- NOTE | 2018-07-14 09:44 | PN ---
DATE: 07/14/2018 PULMONARY PROGRESS NOTE SUBJECTIVE: The patient was seen and examined at bedside. He feels comfortable. There is no acute shortness of breath. He complains of difficulty raising secretions and that is why he coughs more. PHYSICAL EXAMINATION: VITAL SIGNS: His temperature is 98, pulse 94, respirations 20, blood pressure is 130/80. Oxygen saturation on nasal cannula is 95%. HEENT: Head normocephalic and atraumatic. NECK: Supple with no jugular vein distentions. CARDIOVASCULAR: S1, S2. No S3 and no murmurs. PULMONARY: Few basilar rhonchi. No wheezing. Decreased breath sounds on the left side. EXTREMITIES: No clubbing, cyanosis or edema. GI: Soft, nontender. No organomegaly. SKIN: No acute skin rash. NEUROLOGIC: No focal deficits. ASSESSMENT: 1. Recurrent respiratory failure. 2. Advanced lung cancer. 3. Advanced chronic obstructive pulmonary disease. 4. Resolved bronchospasm. PLAN: The patient appears more comfortable. His oxygen saturation is good on nasal cannula. He is getting nebulizer treatment. Plans for additional chemotherapy noted. Sandoval Del Real MD
[2018-07-14] MEDS: MethylPREDNISolone 40 mg Vial IVP SCH ×2 (11:20→22:20)
[2018-07-14] MEDS: Magnesium Oxide 400 mg Tab UD PO SCH ×2 (11:21→18:07)
--- NOTE | 2018-07-14 15:07 | PN ---
DATE: 07/14/2018 The patient is a 68-year-old, patient of Dr. Varela. I am covering for him. He is lying in bed, seems to be comfortable. The patient states he got his chemotherapy and after that his condition got worse and he started to have increasing shortness of breath, so he came to emergency room for further evaluation. PHYSICAL EXAMINATION: GENERAL: He is awake, alert, oriented, able to communicate. VITAL SIGNS: He is afebrile, pulse 92, respirations 20, blood pressure 134/92. LUNGS: Bilateral decreased breath sounds, few expiratory rhonchi. HEART: S1 and S2 audible. ABDOMEN: Soft and nontender. No rebound or guarding. NEUROLOGIC: The patient is awake, alert, oriented, able to communicate. LABORATORY EXAMINATION: WBC 7.3, hemoglobin 13.9, hematocrit 45, platelets of 191. Chemistries, sodium 139, potassium 4.9, chloride 103, CO2 of 32, BUN 30, creatinine 0.9, blood sugar of 141. Blood cultures are negative. ASSESSMENT: 1. Chronic obstructive pulmonary disease exacerbation. 2. Human immunodeficiency virus positive. 3. History of pleural effusion. 4. Right lung squamous cell carcinoma, getting chemotherapy by Dr. Rojas. PLAN: Currently, the patient is on nebulizer treatment. He is on HIV medication. He is on IV steroids. Request for physical therapy evaluation and reevaluate the patient in a.m. Alexander Ulloa MD
[2018-07-14] MEDS: Efavirenz/Emtricitabine/Teno 1 TAB PO SCH (22:20)
[2018-07-15] MEDS: Albuterol-Ipratrop 3 mg / 0.5 (3 ml) UD IH SCH ×3 (01:21→13:19)
[2018-07-15] MEDS: Budesonide 0.5 mg/2 ml Inhal Susp UD IH SCH ×2 (07:55→20:11)
[2018-07-15] MEDS: Insulin Lispro (humaLOG) LOW Coverage SC SCH ×4 (08:21→21:59)
[2018-07-15] MEDS: Oxycodone/Acetaminophen 10/325 mg Tab PO PRN ×3 (08:40→22:26)
[2018-07-15] MEDS: Magnesium Oxide 400 mg Tab UD PO SCH ×2 (11:42→19:09)
[2018-07-15] MEDS: MethylPREDNISolone 40 mg Vial IVP SCH ×2 (11:42→22:26)
--- NOTE | 2018-07-15 19:03 | PN ---
DATE: 07/15/2018 SUBJECTIVE: The patient is a 68-year-old, seen and examined, has mild shortness of breath and complained of cough. PHYSICAL EXAMINATION: VITAL SIGNS: He is afebrile, pulse 85, respirations 19, and blood pressure 131/89. LUNGS: Bilateral fair airflow, decreased at bases. HEART: S1 and S2 audible. ABDOMEN: Soft and nontender. No rebound. No guarding. NEUROLOGIC: The patient is awake, alert, and communicative. EXTREMITIES: Bilateral legs, no edema. LABORATORY DATA: Blood sugar is 119. Blood cultures are negative. ASSESSMENT: 1. Chronic obstructive pulmonary disease exacerbation. 2. Human immunodeficiency virus positive. 3. Pleural effusion. 4. History of right lung squamous cell carcinoma, currently on chemotherapy due for chemotherapy on Monday. 5. Asthmatic bronchitis. PLAN: Currently, the patient is on nebulizer treatment. He is on IV steroids. We need to encourage the patient for ambulation. Physical therapy has been requested. Monitor the patient for another 24 hours. If remains stable, he will be discharge tomorrow to receive his chemotherapy. Alexander Ulloa MD
[2018-07-15] MEDS: Efavirenz/Emtricitabine/Teno 1 TAB PO SCH (22:26)
[2018-07-15 23:17] VITALS: RESP 19
[2018-07-16] MEDS: Albuterol-Ipratrop 3 mg / 0.5 (3 ml) UD IH SCH ×2 (01:58→07:41)
[2018-07-16 06:52] VITALS: BP 137/88; PULSE 94; TEMP 97.9; O2SAT 97
[2018-07-16] MEDS: Budesonide 0.5 mg/2 ml Inhal Susp UD IH SCH (07:41)
[2018-07-16] MEDS: Insulin Lispro (humaLOG) LOW Coverage SC SCH (07:43)
[2018-07-16] MEDS: Magnesium Oxide 400 mg Tab UD PO SCH (09:38)
[2018-07-16] MEDS ORDERED: Pneumococcal 23-Valent Vaccine IM ONE (09:49)
--- NOTE | 2018-07-16 13:53 | DS ---
HISTORY OF PRESENT ILLNESS: A 68-year-old white male, seen in his bed with supplemental oxygen. Comfortable, awake, alert and oriented x3. The patient is anxious to be discharged today. He does have an appointment in approximately 2 hours [address] now with Dr. Rojas his oncologist in her office. The patient did some physical therapy and occupational therapy yesterday. He is still using oxygen. He does have a wheelchair at home. He has supplemental oxygen at home and also in the car. The patient will be stable for discharge. PHYSICAL EXAMINATION: VITAL SIGNS: He is afebrile. Vital signs are stable. His heart rate is 94, his blood pressure is 137/88, his temperature is 97.9. NEUROLOGIC: Patient awake, alert and oriented x3. LABORATORY DATA: White count 7.3. His electrolytes are intact. His hemoglobin is 13.9. His BUN and creatinine are 30 and 0.9. The patient's chest is significantly improved, his right chest. He does have a left pneumonectomy. He has had one course of therapy for his lung cancer. He is going to receive a second from Dr. Rojas today. He was seen by Dr. Kia Valdovinos for palliative care. He understands his rights. He is a DNR/DNI. He does have home care at home. The patient is otherwise unchanged. The patient will be discharged today, and to be followed with Dr. Rojas this morning, and the patient will follow up with us within a week. FINAL DISCHARGE DIAGNOSES: Exacerbation of chronic obstructive pulmonary disease, bronchitis, squamous cell lung cancer, history of lung cancer and pneumonectomy, history of chronic obstructive pulmonary disease, and cachexia from lung cancer. Steve Varela MD
--- NOTE | 2018-07-16 15:16 | PN ---
DATE: 07/16/2018 SUBJECTIVE: The patient appears very comfortable this morning. He is not short of breath at rest. PHYSICAL EXAMINATION: VITAL SIGNS: Temperature is 97.9, pulse 94, respirations 19, blood pressure 137/88. Oxygen saturation on nasal cannula is 97%. HEENT: Normocephalic, atraumatic. No JVD. CARDIOVASCULAR: Positive S1, S2. No S3 gallop. LUNGS: Much less/very minimal rhonchi - right lung. No wheezing. Decreased breath sounds - left lung. EXTREMITIES: No clubbing, cyanosis or edema. Calves are nontender to palpation. GI: Abdomen is soft, nontender, nondistended. Bowel sounds are positive. SKIN: No acute rash. NEUROLOGIC: Exam limited at the present time. IMPRESSION: 1. Recurrent respiratory failure. 2. Advanced/extensive lung cancer. 3. Advanced chronic obstructive pulmonary disease. 4. Mild bronchospasm. PLAN: The patient appears very comfortable this morning. He is not short of breath at rest. He does state to feeling much, much better overall. I did discuss the case with the night nurse at length. The night nurse stated that the patient had a very good night. On physical exam, his bronchospasm continues to resolve. In addition, the alveolar-arterial gradient continues to resolve. I will continue with the current nebulizer treatments and change to oral steroids this morning. Clinical status of the patient is significantly improved - compared to the initial presentation. Unfortunately, the future status/prognosis for this patient remains very poor. The patient stated that he must leave today to see Dr. Rojas (Oncology) - for additional chemotherapy. I will discuss the above with the attending physician. Kwadwo Navarro MD TEZ
== END 2018-07-16 10:38 | disposition home or self-care (01) | DRG 191 ==
LOC: ED 08:31 → ERH 10:42 → 2RSO 14:14
PROVIDERS: ADMIT Internal Medicine; ATTEND Internal Medicine
DX: J44.1 Chronic obstructive pulmonary disease with (acute) exacerbation (principal); C34.91 Malignant neoplasm of unspecified part of right bronchus or lung; J90 Pleural effusion, not elsewhere classified; J98.11 Atelectasis; J96.11 Chronic respiratory failure with hypoxia; Z21 Asymptomatic human immunodeficiency virus [HIV] infection status; E11.9 Type 2 diabetes mellitus without complications; I11.9 Hypertensive heart disease without heart failure; I51.7 Cardiomegaly; Z51.5 Encounter for palliative care; Z66 Do not resuscitate; Z87.01 Personal history of pneumonia (recurrent); Z87.891 Personal history of nicotine dependence; Z90.2 Acquired absence of lung [part of]; Z99.81 Dependence on supplemental oxygen